=== PATIENT | male | born 1960 | race Caucasian/White ===

== ENCOUNTER 2017-02-03 07:30 | Day surgery (SDC) | payer OTHER ==
[2017-02-02 14:04] VITALS: BMI 25.1
[2017-02-03] MEDS ORDERED: HEPARIN NA (PORCINE) 5,000 UNITS/ML 1ML VIAL ONE ×3 (07:35→15:50)
[2017-02-03] MEDS ORDERED: LIDOCAINE HCL 1%, 10 MG/ML (20ML VIAL) ONE (07:35)
[2017-02-03] MEDS ORDERED: PROPOFOL 20 ML ONE ×3 (09:10→15:45)
[2017-02-03] MEDS ORDERED: MIDAZOLAM HCL 2 MG/2 ML SINGLE DOSE VIAL ONE ×4 (09:10→15:46)
[2017-02-03] MEDS ORDERED: fentaNYL CITRATE 250 MCG/5 ML VIAL ONE (09:10)
[2017-02-03] MEDS ORDERED: ceFAZolin SODIUM 1 GM VIAL ONE (09:22)
[2017-02-03] MEDS ORDERED: ONDANSETRON 4 MG/2 ML VIAL IVPUSH PRN ×2 (10:26→16:33)
[2017-02-03] MEDS ORDERED: oxyCODONE HCL 5 MG TABLET PO PRN ×2 (10:26→16:33)
[2017-02-03] MEDS ORDERED: LACTATED RINGERS SOLUTION 1,000 ML IV SCH ×2 (10:30→16:45)
--- NOTE | 2017-02-03 10:42 | OP ---
Operative Note - Note: Operative Date: 02/03/17 Pre-Operative Diagnosis: LLE claudication Operation: Aortogram, LLE angiogram, FILAMENT CUTTER DCB angioplasty, SFA DCB angioplasty. Findings: FILAMENT CUTTER occlusion Post-Operative Diagnosis: Same as Pre-op Surgeon: Cuba Falk Anesthesia: Fractional Estimated Blood Loss (mls): 50 Operative Report Dictated: Yes
[2017-02-03] MEDS ORDERED: CLOPIDOGREL BISULFATE 75 MG TABLET (FP) ONE (11:17)
[2017-02-03] MEDS ORDERED: CLOPIDOGREL BISULFATE 75 MG TABLET (FP) PO ONE (13:06)
--- NOTE | 2017-02-03 13:15 | HP ---
Admitting History and Physical - Admission Chief Complaint: LLE claudication Limitations to Obtaining History: No Limitations - Past Medical History Cardiovascular: Yes: Hyperlipdemia - Smoking History Smoking history: Current every day smoker Have you smoked in the past 12 months: Yes Aproximately how many cigarettes per day: 20 - Alcohol/Substance Use Hx Alcohol Use: No (weekends, occasional 12/week) Home Medications - Allergies Allergies/Adverse Reactions: Allergies Allergy/AdvReac Type Severity Reaction Status Date / Time No Known Allergies Allergy Verified 02/03/17 07:50 - Home Medications Home Medications: Ambulatory Orders Aspirin [ASA -] 1 tab PO DAILY 01/19/16 Tamsulosin HCl [Flomax] 1 cap PO DAILY 01/19/16 Atorvastatin Ca [Lipitor] 1 tab PO DAILY 01/24/17 Cholecalciferol (Vitamin D3) [Vitamin D3] 1 tab PO DAILY 01/24/17 Cyanocobalamin (Vitamin B-12) [Vitamin B-12] 1 tab PO DAILY 01/24/17 Clopidogrel Bisulfate [Plavix -] 75 mg PO DAILY #30 tablet 02/03/17 Review of Systems - Review of Systems Constitutional: reports: No Symptoms Eyes: reports: No Symptoms HENT: reports: No Symptoms Neck: reports: No Symptoms Cardiovascular: reports: No Symptoms Respiratory: reports: No Symptoms Gastrointestinal: reports: No Symptoms Genitourinary: reports: No Symptoms Musculoskeletal: reports: No Symptoms Integumentary: reports: No Symptoms Neurological: reports: No Symptoms Endocrine: reports: No Symptoms Hematology/Lymphatic: reports: No Symptoms Physical Examination Vital Signs: Vital Signs Temperature 98.0 F 02/03/17 11:30 Pulse Rate 56 L 02/03/17 11:59 Respiratory Rate 16 02/03/17 11:59 Blood Pressure 125/79 02/03/17 11:59 O2 Sat by Pulse Oximetry (%) 98 02/03/17 11:15 Constitutional: Yes: Well Nourished Eyes: Yes: WNL HENT: Yes: WNL Neck: Yes: WNL Cardiovascular: Yes: WNL Respiratory: Yes: WNL Gastrointestinal: Yes: WNL Musculoskeletal: Yes: WNL Extremities: Yes: WNL Edema: No Peripheral Pulses WNL: No Integumentary: Yes: WNL Assessment/Plan LLE claudication 1. 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
[2017-02-03] MEDS ORDERED: ceFAZolin SODIUM 1 GM VIAL IVPB ONE ×2 (15:46)
[2017-02-03] MEDS ORDERED: LIDOCAINE HCL 1%, 10 MG/ML (20ML VIAL) INF ONE (15:53)
[2017-02-03] MEDS ORDERED: PROMETHAZINE HCL 25 MG/1 ML VIAL IVPUSH PRN (16:33)
--- NOTE | 2017-02-03 16:37 | OP ---
Operative Note - Note: Operative Date: 02/03/17 Pre-Operative Diagnosis: Right lower ext claudication Operation: Aortogram, RLE angiogram, RANGE CONSERVATIONIST DCB angioplasty Findings: 80% stenosis of right RANGE CONSERVATIONIST Post-Operative Diagnosis: Same as Pre-op Surgeon: Cuba Falk Anesthesia: Fractional Estimated Blood Loss (mls): 10 Operative Report Dictated: Yes
[2017-02-03 17:46] VITALS: TEMP 98.3
[2017-02-03 18:46] VITALS: BP 129/76; PULSE 55
== END 2017-02-03 19:10 | disposition home or self-care (01) ==
LOC: JASU-SURG 07:30
PROVIDERS: ATTEND Surgery Vascular Surgery
PROC: 047K3Z1 Dilation of Right Femoral Artery using Drug-Coated Balloon, Percutaneous Approach (ICD-10-PCS; 2017-02-03)
PROC: 047L3Z1 Dilation of Left Femoral Artery using Drug-Coated Balloon, Percutaneous Approach (ICD-10-PCS; 2017-02-03)
PROC: 047K3Z1 Dilation of Right Femoral Artery using Drug-Coated Balloon, Percutaneous Approach (ICD-10-PCS; 2017-02-03)
PROC: 047L3Z1 Dilation of Left Femoral Artery using Drug-Coated Balloon, Percutaneous Approach (ICD-10-PCS; principal; 2017-02-03 09:00)
DX: I70.213 Atherosclerosis of native arteries of extremities with intermittent claudication, bilateral legs (principal)
CPT/HCPCS: 37224; C2623; 76000-TC; 94760; J1644

== ENCOUNTER 2017-10-17 07:27 | Day surgery (SDC) | payer BC, OTHER ==
[2017-10-13 17:56] VITALS: BMI 24.9
[2017-10-17] MEDS ORDERED: DEXAMETHASONE SOD PHOSPHATE 4 MG/1 ML VIAL ONE (09:27)
[2017-10-17] MEDS ORDERED: PROPOFOL 20 ML ONE (09:28)
[2017-10-17] MEDS ORDERED: MIDAZOLAM HCL 2 MG/2 ML SINGLE DOSE VIAL ONE (09:28)
[2017-10-17] MEDS ORDERED: LIDOCAINE HCL/PF 2% SDV 5ML VIAL ONE (10:08)
[2017-10-17] MEDS ORDERED: ACETAMINOPHEN 500 MG TABLET (FP) PO PRN (10:51)
[2017-10-17] MEDS ORDERED: ONDANSETRON 4 MG/2 ML VIAL IVPUSH PRN (10:51)
[2017-10-17] MEDS ORDERED: oxyCODONE HCL 5 MG TABLET PO PRN (10:51)
[2017-10-17] MEDS ORDERED: LACTATED RINGERS SOLUTION 1,000 ML IV SCH (11:00)
--- NOTE | 2017-10-17 12:10 | OP ---
Operative Note - Note: Operative Date: 10/17/17 Pre-Operative Diagnosis: bladder tumor Operation: cystoscopy/bladder biopsy/transurethral vaporization of bladder tumor Findings: 5cm x 8cm erythematous patch at posterior bladder at junction with dome Post-Operative Diagnosis: Same as Pre-op Surgeon: Tino Gaston Anesthesia: General Operative Report Dictated: Yes
[2017-10-17 12:42] VITALS: TEMP 97.5
[2017-10-17] MEDS ORDERED: oxyCODONE HCL 5 MG TABLET ONE (13:04)
[2017-10-17 14:51] VITALS: BP 135/86; PULSE 58
--- NOTE | 2017-10-18 14:17 | PATH ---
Surgical Pathology Report Patient Name: ROCIO KATE [facility]. Rec. #: [id number] /Age/Gender: 1960 (Age: 57) / M Account: [id number] Location: [facility] SURG[facility] Taken: 10/17/2017 Received: 10/17/2017 Reported: 10/18/2017 Physicians: Tino Gaston Specimen(s) Received BLADDER TISSUE BIOPSY Clinical History History of transitional bladder cancer Final Diagnosis BLADDER TISSUE, BIOPSY: DENUDED UROTHELIAL MUCOSA WITH MILD CHRONIC INFLAMMATION, GRANULATION TISSUE, AND FOCAL GIANT CELL REACTION. NO CARCINOMA IDENTIFIED. Electronically Signed Angy Lozano M.D. Gross Description Received in formalin labeled "bladder tissue biopsy," is a 0.3 cm greatest dimension sanchez portion of soft tissue which is submitted in toto in one cassette. 10/17/2017 saudi10/17/2017
--- NOTE | 2017-11-01 07:07 | OP ---
DATE OF OPERATION: 10/17/2017 PREOPERATIVE DIAGNOSIS: Bladder tumor. POSTOPERATIVE DIAGNOSIS: Bladder tumor. PROCEDURE: Cystoscopy, bladder biopsy, and transurethral vaporization of bladder tumor. ATTENDING: Edgard Padilla MD ANESTHESIA: General. OPERATION WAS FOLLOWS: The patient was brought in the operating room, placed in the supine position on the operating room table. Anesthesia and preoperative antibiotics were administered. The patient was then placed in dorsal lithotomy position, prepped and draped in the usual sterile manner. A posterior erythematous patch measuring 5 x 8 cm was noted. Biopsy of this area was performed. Vaporization to the level of the deep muscle of the bladder was performed utilizing the button element of the PlasmaKinetic system. The bipolar system allowed for excellent hemostasis and vaporization of tissue to the level of the deep muscle of the bladder. No complications were noted. The patient tolerated the procedure very well. The patient was left with the Chavez catheter to straight drainage. The patient will be followed up as an outpatient for evaluation of the biopsy results. EDGARD PADILLA M.D. [id number]
== END 2017-10-17 14:05 | disposition home or self-care (01) ==
LOC: JASU-SURG 07:27
PROVIDERS: ATTEND Urology
PROC: 0TBB8ZZ Excision of Bladder, Via Natural or Artificial Opening Endoscopic (ICD-10-PCS; principal; 2017-10-17 09:00)
DX: D09.0 Carcinoma in situ of bladder (principal)
CPT/HCPCS: 88305-TC; 94760

== ENCOUNTER 2018-03-16 05:07 | Day surgery (SDC) | payer OTHER, BC ==
[2018-03-14 17:45] VITALS: BMI 24.9
[2018-03-16] MEDS ORDERED: HEPARIN NA (PORCINE) 5,000 UNITS/ML 1ML VIAL ONE ×2 (15:29→16:45)
[2018-03-16] MEDS ORDERED: LIDOCAINE HCL 1%, 10 MG/ML (20ML VIAL) ONE (15:29)
[2018-03-16] MEDS ORDERED: PROPOFOL 20 ML ONE (15:41)
[2018-03-16] MEDS ORDERED: MIDAZOLAM HCL 2 MG/2 ML SINGLE DOSE VIAL ONE ×2 (15:41→16:37)
[2018-03-16] MEDS ORDERED: ceFAZolin SODIUM 1 GM VIAL IVPB ONE (16:39)
[2018-03-16] MEDS ORDERED: PROTAMINE SULFATE 50 MG/5 ML VIAL ONE (16:45)
[2018-03-16] MEDS ORDERED: LIDOCAINE HCL 1%, 10 MG/ML (20ML VIAL) NR ONE (16:49)
--- NOTE | 2018-03-16 17:41 | HP ---
Admitting History and Physical - Admission Chief Complaint: RLE claudication less than three blocks Limitations to Obtaining History: No Limitations - Past Medical History Cardiovascular: Yes: Hyperlipdemia - Smoking History Smoking history: Former smoker Have you smoked in the past 12 months: Yes Aproximately how many cigarettes per day: 20 If you are a former smoker, when did you quit?: 09/2017 - Alcohol/Substance Use Hx Alcohol Use: No (OCCASIONAL) Home Medications - Allergies Allergies/Adverse Reactions: Allergies Allergy/AdvReac Type Severity Reaction Status Date / Time No Known Allergies Allergy Verified 03/16/18 14:40 - Home Medications Home Medications: Ambulatory Orders Aspirin [ASA -] 1 tab PO DAILY 01/19/16 Tamsulosin HCl [Flomax] 1 cap PO DAILY 01/19/16 Cholecalciferol (Vitamin D3) [Vitamin D3] 1 tab PO DAILY 01/24/17 Cyanocobalamin (Vitamin B-12) [Vitamin B-12] 1 tab PO DAILY 01/24/17 Review of Systems - Review of Systems Constitutional: reports: No Symptoms Eyes: reports: No Symptoms HENT: reports: No Symptoms Neck: reports: No Symptoms Cardiovascular: reports: No Symptoms Respiratory: reports: No Symptoms Gastrointestinal: reports: No Symptoms Genitourinary: reports: No Symptoms Musculoskeletal: reports: No Symptoms Integumentary: reports: No Symptoms Neurological: reports: No Symptoms Endocrine: reports: No Symptoms Hematology/Lymphatic: reports: No Symptoms Psychiatric: reports: No Symptoms Physical Examination Vital Signs: Vital Signs Temperature 98.0 F 03/16/18 14:36 Pulse Rate 97 H 03/16/18 14:36 Respiratory Rate 20 03/16/18 14:36 Blood Pressure 133/62 03/16/18 14:36 O2 Sat by Pulse Oximetry (%) 96 03/16/18 14:34 Constitutional: Yes: Well Nourished, No Distress, Calm Eyes: Yes: WNL, Conjunctiva Clear, EOM Intact HENT: Yes: WNL, Atraumatic, Normocephalic Neck: Yes: WNL, Supple, Trachea Midline Cardiovascular: Yes: WNL, Regular Rate and Rhythm Respiratory: Yes: WNL, Regular, CTA Bilaterally Gastrointestinal: Yes: WNL, Normal Bowel Sounds Musculoskeletal: Yes: WNL Extremities: Yes: WNL Edema: No Peripheral Pulses WNL: No Integumentary: Yes: WNL Neurological: Yes: WNL, Alert, Oriented ...Motor Strength: WNL Psychiatric: Yes: WNL Problem List - Problems (1) Claudication of right lower extremity Assessment/Plan: For angiogram today . Code(s): I73.9 - PERIPHERAL VASCULAR DISEASE, UNSPECIFIED
--- NOTE | 2018-03-16 17:43 | OP ---
Operative Note - Note: Operative Date: 03/16/18 Pre-Operative Diagnosis: RLE claudication Operation: Aortogram, RLE angiogram, SASH INSTALLER atherectomy, DCB angioplasty Findings: 90 stenosis right SASH INSTALLER Post-Operative Diagnosis: Same as Pre-op Surgeon: Cuba Falk Anesthesia: Fractional Estimated Blood Loss (mls): 50 Operative Report Dictated: Yes
[2018-03-16] MEDS ORDERED: CLOPIDOGREL BISULFATE 75 MG TABLET (FP) PO ONE ×2 (17:46→18:00)
[2018-03-16] MEDS ORDERED: CLOPIDOGREL BISULFATE 75 MG TABLET (FP) ONE (18:08)
[2018-03-16 19:42] VITALS: BP 140/80; PULSE 56; TEMP 97.6
--- NOTE | 2018-03-18 12:09 | OP ---
DATE OF OPERATION: 03/16/2018 PREOPERATIVE DIAGNOSIS: Right lower extremity claudication. POSTOPERATIVE DIAGNOSIS: Right lower extremity claudication. PROCEDURE: Aortogram, right lower extremity angiogram, common femoral artery atherectomy, drug-coated balloon, common femoral artery angioplasty. SURGEON: Cuba Ryder DO ANESTHESIA: Fractional. BLOOD LOSS: 50 mL. INDICATION FOR PROCEDURE: The patient is a 57-year-old male that has [id number]-block claudication. Preoperative ultrasound showed that he has disease in the right common femoral artery. It was decided that he would need an angiogram. Patient came in through ambulatory surgery. Patient was consented for the procedure, understanding all risks, benefits, alternatives. He was then taken to the operating room. DESCRIPTION OF PROCEDURE: Once in the operating room, he was laid on the operating table in supine manner, and the area of the right and left groin was prepped and draped in a sterile surgical manner. We then went ahead and injected 10 mL of lidocaine 1% over the left common femoral artery. We then punctured the left common femoral artery, Micropuncture wire was inserted, Micropuncture sheath was inserted. A 0.035 floppy guidewire was inserted and a 5-[place] sheath was inserted. We then placed a wire up into the aorta, followed by Omniflush catheter. We then shot an aortogram showing that the aorta and iliac arteries were without any disease. We then placed a 0.035 floppy guidewire down to the right common femoral artery, and the Omniflush catheter followed. We then shot an angiogram of the right lower extremity showing that profunda is patent, but the common femoral artery is about 95% closed. Patient has a patent SFA, popliteal artery, and 2-vessel runoff into the foot. At this point we were able to get a 0.035 stiff guidewire down across our stenosis and placed a wire into the SFA. We removed the Omniflush catheter. We placed a 6 x 45 crossover sheath, 5000 units of IV heparin was administered to patient. We then went ahead and placed a Quick-Cross catheter and exchanged the wire for a Viper Wire. We then used [employer] Atherectomy Device and performed atherectomy of the common femoral artery. We then went ahead and shot a completion angiogram showing that we debulked the calcium, but there was still significant stenosis. At this point we used a 5 x 4 Lutonix drug-coated balloon and performed angioplasty of the common femoral artery, and we left the balloon up for 2 minutes to let the drug disseminate. We then shot an angiogram of the right lower extremity, and the common femoral artery was better. There was probably still 60% stenosis. We then went ahead and increased our balloon size to 6 x 4, being mindful that we do not want to dissect the common femoral artery. We went ahead performed angioplasty of the right common femoral artery and left the balloon up for 2 minutes to let the drug disseminate. Completion angiogram now showed that there was significant diameter increase, but there was still about 40% stenosis, but there was good brisk flow all the way down to the foot, and the patient had a good DP pulse. At this point we decided that no more intervention was needed. If in the future this recurs, the patient might need an open operation in the form of an endarterectomy to remove the calcium. At this point we brought our sheath up and over, and StarClose device was successfully deployed in the left common femoral artery. Pressure was held for 5 minutes. After there was no more bleeding, the area was wet and dried and Dermabond was placed. Patient tolerated the procedure with no complications. Patient transferred to PACU in stable condition where patient has a palpable DP pulse. CUBA RYDER DO NP/[id number]
== END 2018-03-16 19:35 | disposition home or self-care (01) ==
LOC: JASU-SURG 05:07
PROVIDERS: ATTEND Surgery Vascular Surgery
PROC: 04CK3ZZ Extirpation of Matter from Right Femoral Artery, Percutaneous Approach (ICD-10-PCS; 2018-03-16)
PROC: B41DYZZ Fluoroscopy of Aorta and Bilateral Lower Extremity Arteries using Other Contrast (ICD-10-PCS; 2018-03-16)
PROC: 047K3Z1 Dilation of Right Femoral Artery using Drug-Coated Balloon, Percutaneous Approach (ICD-10-PCS; principal; 2018-03-16 17:00)
DX: I70.211 Atherosclerosis of native arteries of extremities with intermittent claudication, right leg (principal); Z87.891 Personal history of nicotine dependence; Z85.51 Personal history of malignant neoplasm of bladder
CPT/HCPCS: 37225; C2623; 94760; J1644

== ENCOUNTER 2018-06-26 08:07 | Day surgery (SDC) | payer OTHER, BC ==
[2018-06-23 11:28] VITALS: BMI 25.1
[2018-06-26] MEDS ORDERED: LIDOCAINE HCL/PF 2% SDV 5ML VIAL ONE (10:57)
[2018-06-26] MEDS ORDERED: MIDAZOLAM HCL 2 MG/2 ML SINGLE DOSE VIAL ONE (10:58)
[2018-06-26] MEDS ORDERED: PROPOFOL 20 ML ONE (10:58)
[2018-06-26] MEDS ORDERED: oxyCODONE HCL 5 MG TABLET PO PRN (11:49)
[2018-06-26] MEDS ORDERED: IBUPROFEN 800 MG/8 ML IJ IVPB PRN (11:49)
[2018-06-26] MEDS ORDERED: ONDANSETRON 4 MG/2 ML VIAL IVPUSH PRN (11:49)
[2018-06-26] MEDS ORDERED: LACTATED RINGERS SOLUTION 1,000 ML IV SCH (12:00)
--- NOTE | 2018-06-26 13:01 | OP ---
Operative Note - Note: Operative Date: 06/26/18 Pre-Operative Diagnosis: neoplasm of bladder with history of TCC of bladder Operation: cystoscopy/bladder biopsy and fulguration of bladder neoplasm Findings: erythematous patch of posterior wall measuring 3 cm x 3 cm Post-Operative Diagnosis: Same as Pre-op Surgeon: Tino Gaston Anesthesia: General
[2018-06-26 14:56] VITALS: BP 147/78; PULSE 50; TEMP 97.3
--- NOTE | 2018-06-26 15:37 | OP ---
DATE OF OPERATION: 06/26/2018 PREOPERATIVE DIAGNOSIS: Neoplasm of the bladder with history of transitional cell carcinoma of the bladder. POSTOPERATIVE DIAGNOSIS: Neoplasm of the bladder with history of transitional cell carcinoma of the bladder. PROCEDURE: Cystoscopy, bladder biopsy with fulguration of bladder neoplasm. ATTENDING: Edgard Padilla MD ANESTHESIA: General. OPERATION: Patient brought into the operating room, placed in the supine position on the operating room table. Anesthesia and preoperative antibiotics administered after which the patient was placed in the dorsal lithotomy position and prepped and draped in the usual sterile manner. Cystoscopy was performed and a posterior area measuring 3 cm x 3 cm which has erythema. There was no evidence of papillary neoplasm. This area has been present for a period of 3 months. Patient had been scheduled in February for a biopsy, however, chose to forego the biopsy at that time. The patient presents today for biopsy of this lesion. All risks and benefits have been given to the patient. A biopsy forceps was utilized and 5+ biopsies of this area were performed. They were sent to Pathology for evaluation. Fulguration using a Bugbee electrode was utilized for fulguration and hemostasis. The erythematous area was fulgurated to the level of the superficial muscle. No complications were noted. Excellent hemostasis was noted. No catheter was left in place at the end of the procedure. Disposition of patient is to the recovery room. EDGARD PADILLA M.D. /[id number]
--- NOTE | 2018-06-27 16:16 | PATH ---
Surgical Pathology Report Patient Name: ROCIO KATE Med. Rec. #: [id number] /Age/Gender: 1960 (Age: 57) / M Account: [id number] Location: [facility] SURGICAL Taken: 06/26/2018 Received: 06/26/2018 Reported: 06/27/2018 Physicians: Tino Gaston Specimen(s) Received BLADDER BIOPSY Clinical History Neoplasm of uncertain behavior of bladder Final Diagnosis BLADDER, BIOPSY: DENUDED UROTHELIAL MUCOSA WITH CHRONIC INFLAMMATION. NO CARCINOMA IDENTIFIED. Comment: Also see [id number]. Electronically Signed Germán Mcintosh M.D. Gross Description Received in formalin, labeled "bladder biopsy" are 5 sanchez, irregular portions of soft tissue ranging from 0.2-0.3 cm. in greatest dimension. The specimens are submitted in toto in one cassette. /06/26/2018 saudi/06/26/2018
== END 2018-06-26 15:00 | disposition home or self-care (01) ==
LOC: JASU-SURG 08:07
PROVIDERS: ATTEND Urology
PROC: 0T5B8ZZ Destruction of Bladder, Via Natural or Artificial Opening Endoscopic (ICD-10-PCS; principal; 2018-06-26 10:00)
DX: D30.3 Benign neoplasm of bladder (principal)
CPT/HCPCS: 88305-TC; 94760

== ENCOUNTER 2018-06-30 09:00 | Day surgery (SDC) | payer BC, OTHER ==
[2018-06-29 16:38] VITALS: BMI 25.1
[~2018-06-30 09:00] MED LIST: LIDOCAINE HCL 1%, 10 MG/ML (20ML VIAL) PNB ONE
[2018-06-30] MEDS ORDERED: LIDOCAINE HCL 1%, 10 MG/ML (20ML VIAL) ONE (10:25)
[2018-06-30] MEDS ORDERED: HEPARIN NA (PORCINE) 5,000 UNITS/ML 1ML VIAL ONE (10:25)
[2018-06-30] MEDS ORDERED: ONDANSETRON 4 MG/2 ML VIAL IVPUSH PRN (10:25)
[2018-06-30] MEDS ORDERED: LACTATED RINGERS SOLUTION 1,000 ML IV SCH (10:30)
[2018-06-30] MEDS ORDERED: ceFAZolin SODIUM 1 GM VIAL IVPB ONE (11:32)
--- NOTE | 2018-06-30 12:21 | HP ---
Admitting History and Physical - Admission Chief Complaint: right lower ext claudication Limitations to Obtaining History: No Limitations - Past Medical History Cardiovascular: Yes: Hyperlipdemia - Smoking History Smoking history: Former smoker Have you smoked in the past 12 months: No Aproximately how many cigarettes per day: 20 If you are a former smoker, when did you quit?: 09/2017 - Alcohol/Substance Use Hx Alcohol Use: Yes (socially) Home Medications - Allergies Allergies/Adverse Reactions: Allergies Allergy/AdvReac Type Severity Reaction Status Date / Time No Known Allergies Allergy Verified 06/30/18 09:25 - Home Medications Home Medications: Ambulatory Orders Aspirin [ASA -] 1 tab PO DAILY 01/19/16 Tamsulosin HCl [Flomax] 1 cap PO DAILY 01/19/16 Cholecalciferol (Vitamin D3) [Vitamin D3] 1 tab PO DAILY 01/24/17 Cyanocobalamin (Vitamin B-12) [Vitamin B-12] 1 tab PO DAILY 01/24/17 Review of Systems - Review of Systems Constitutional: reports: No Symptoms Eyes: reports: No Symptoms HENT: reports: No Symptoms Neck: reports: No Symptoms Cardiovascular: reports: No Symptoms Respiratory: reports: No Symptoms Gastrointestinal: reports: No Symptoms Genitourinary: reports: No Symptoms Musculoskeletal: reports: No Symptoms Integumentary: reports: No Symptoms Neurological: reports: No Symptoms Endocrine: reports: No Symptoms Hematology/Lymphatic: reports: No Symptoms Psychiatric: reports: No Symptoms Physical Examination Vital Signs: Vital Signs Temperature 97.7 F 06/30/18 09:27 Pulse Rate 62 06/30/18 09:27 Respiratory Rate 16 06/30/18 09:27 Blood Pressure 115/74 06/30/18 09:27 O2 Sat by Pulse Oximetry (%) 95 06/30/18 09:27 Constitutional: Yes: Well Nourished, No Distress, Calm Eyes: Yes: WNL, Conjunctiva Clear, EOM Intact HENT: Yes: WNL, Atraumatic, Normocephalic Neck: Yes: WNL, Supple, Trachea Midline Cardiovascular: Yes: WNL, Regular Rate and Rhythm Respiratory: Yes: WNL, Regular, CTA Bilaterally Gastrointestinal: Yes: WNL, Normal Bowel Sounds Musculoskeletal: Yes: WNL Extremities: Yes: WNL Edema: No Peripheral Pulses WNL: No Integumentary: Yes: WNL Neurological: Yes: WNL, Alert, Oriented ...Motor Strength: WNL Psychiatric: Yes: WNL Problem List - Problems (1) Claudication of right lower extremity Assessment/Plan: for angiogram today Code(s): I73.9 - PERIPHERAL VASCULAR DISEASE, UNSPECIFIED
--- NOTE | 2018-06-30 12:22 | OP ---
Operative Note - Note: Operative Date: 06/30/18 Pre-Operative Diagnosis: RLE claudication Operation: Aortogram, RLE angiogram, Right PLASTIC SURGERY NURSE atherectomy with DCB angioplasty Findings: Right PLASTIC SURGERY NURSE occlusion Post-Operative Diagnosis: Same as Pre-op Surgeon: Cuba Falk Anesthesia: Fractional Estimated Blood Loss (mls): 50 Operative Report Dictated: Yes
[2018-06-30 15:56] VITALS: TEMP 98.1
[2018-06-30 16:48] VITALS: BP 125/70; PULSE 58
--- NOTE | 2018-07-04 11:28 | OP ---
DATE OF OPERATION: 06/30/2018 PREOPERATIVE DIAGNOSIS: Right lower extremity claudication. POSTOPERATIVE DIAGNOSIS: Right lower extremity claudication. PROCEDURE: Aortogram, right common femoral artery atherectomy with drug-coated balloon angioplasty. SURGEON: Cuba Ryder DO ANESTHESIA: Fractional. BLOOD LOSS: 20 mL Patient is a 57-year-old male who is current smoker that comes in with right lower extremity claudication. The pain is less than 1 bloke. He has had intervention done below about 6 months ago for atherectomy of the right common femoral artery and it seems like that seems to be the same problem again. Patient came into Ambulatory Surgery. Patient was consented for the procedure understanding all risks, benefits and alternatives and taken to the operating room. Once in the operating room he was placed on the operating table in supine manner and the area of the right leg and left groin were prepped and draped in the sterile surgical manner. We then injected 10 mL of lidocaine 1% over the left common femoral artery. We then took our micropuncture needle and punctured the left common femoral artery. The micropuncture wire was inserted. The micropuncture sheath was inserted. A 0.035 floppy guidewire was inserted and a traditional 5-[place]oc[place] was inserted. We then placed the Omni Flush catheter up into the aorta. We then shot an aortogram by hand injection showing that the aorta and iliac arteries were without any disease. We then placed 1 floppy guidewire down to the right common femoral artery and Omni Flush catheter followed. We then shot an angiogram of the right lower extremity showing that the common femoral artery had about 95% stenosis. Profunda as patent. The SFA was patent and patient had 2 vessel runoff into the foot. At this point we placed the 0.035 stiff guidewire down across our occlusion and placed the wire into the SFA. We removed the Omni Flush catheter. We then went ahead and placed a 6 x 45 cross-over sheath and 5000 units IV heparin were administered to the patient. We then went ahead and exchanged the wire for a ViperWire. We then went ahead and performed CSI orbital atherectomy of the common femoral artery under low, medium and high. We then went ahead and used a 7 x 4 drug-coated balloon, Lutonix balloon, and performed angioplasty of the right common femoral artery. We left the balloon up for 2 minutes so that the drug could disseminate into the artery. Completion angiogram now showed that the artery was patent. There was probably a 15% stenosis. There was good brisk flow down the leg. Patient had a palpable DP pulse. At this point no more intervention was needed. We brought our sheath up and over. The Starclose Device was successfully deployed in the left common femoral artery. Pressure was held for 5 minutes after which there was no more bleeding. The area was wet and dried. Dermabond was placed. Patient tolerated the procedure with no complications. Patient transferred to PACU in stable condition. CUBA RYDER DO [id number]
== END 2018-06-30 14:10 | disposition home or self-care (01) ==
LOC: JASU-SURG 09:00
PROVIDERS: ATTEND Surgery Vascular Surgery
PROC: 047K3Z1 Dilation of Right Femoral Artery using Drug-Coated Balloon, Percutaneous Approach (ICD-10-PCS; principal; 2018-06-30 10:30)
DX: I70.211 Atherosclerosis of native arteries of extremities with intermittent claudication, right leg (principal)
CPT/HCPCS: 37225; C2623; 76000-TC-FY; 94760; J1644

== ENCOUNTER 2018-07-13 07:01 | Day surgery (SDC) | payer BC, OTHER ==
[2018-07-12 09:57] VITALS: BMI 25.1
[2018-07-13] MEDS ORDERED: LIDOCAINE HCL 1%, 10 MG/ML (20ML VIAL) ONE (08:42)
[2018-07-13] MEDS ORDERED: MIDAZOLAM HCL 2 MG/2 ML SINGLE DOSE VIAL ONE (08:59)
[2018-07-13] MEDS ORDERED: PROPOFOL 20 ML ONE ×2 (09:09)
[2018-07-13] MEDS ORDERED: SUCCINYLCHOLINE CHLORIDE 200 MG/10 ML VIAL ONE (09:10)
[2018-07-13] MEDS ORDERED: ceFAZolin SODIUM 1 GM VIAL IVPB ONE (09:14)
[2018-07-13] MEDS ORDERED: ONDANSETRON 4 MG/2 ML VIAL IVPUSH PRN ×2 (11:36→12:00)
--- NOTE | 2018-07-13 11:42 | HP ---
Admitting History and Physical - Admission Chief Complaint: Right lower ext claudication Limitations to Obtaining History: No Limitations - Past Medical History Cardiovascular: Yes: Hyperlipdemia - Smoking History Smoking history: Former smoker Have you smoked in the past 12 months: No Aproximately how many cigarettes per day: 20 If you are a former smoker, when did you quit?: 09/2017 - Alcohol/Substance Use Hx Alcohol Use: Yes (socially) Home Medications - Allergies Allergies/Adverse Reactions: Allergies Allergy/AdvReac Type Severity Reaction Status Date / Time No Known Allergies Allergy Verified 07/13/18 07:31 - Home Medications Home Medications: Ambulatory Orders Aspirin [ASA -] 1 tab PO DAILY 01/19/16 Tamsulosin HCl [Flomax] 1 cap PO DAILY 01/19/16 Cholecalciferol (Vitamin D3) [Vitamin D3] 1 tab PO DAILY 01/24/17 Cyanocobalamin (Vitamin B-12) [Vitamin B-12] 1 tab PO DAILY 01/24/17 Review of Systems - Review of Systems Constitutional: reports: No Symptoms Eyes: reports: No Symptoms HENT: reports: No Symptoms Neck: reports: No Symptoms Cardiovascular: reports: No Symptoms Respiratory: reports: No Symptoms Gastrointestinal: reports: No Symptoms Genitourinary: reports: No Symptoms Integumentary: reports: No Symptoms Neurological: reports: No Symptoms Endocrine: reports: No Symptoms Hematology/Lymphatic: reports: No Symptoms Psychiatric: reports: No Symptoms Physical Examination Vital Signs: Vital Signs Temperature 97.5 F L 07/13/18 07:45 Pulse Rate 75 07/13/18 07:45 Respiratory Rate 16 07/13/18 07:45 Blood Pressure 127/71 07/13/18 07:45 O2 Sat by Pulse Oximetry (%) 95 07/13/18 07:45 Constitutional: Yes: Well Nourished, No Distress, Calm Eyes: Yes: WNL, Conjunctiva Clear, EOM Intact HENT: Yes: WNL, Atraumatic, Normocephalic Neck: Yes: WNL, Supple, Trachea Midline Cardiovascular: Yes: WNL, Regular Rate and Rhythm Respiratory: Yes: WNL, Regular, CTA Bilaterally Gastrointestinal: Yes: WNL, Normal Bowel Sounds Musculoskeletal: Yes: WNL Extremities: Yes: WNL Edema: No Peripheral Pulses WNL: No Integumentary: Yes: WNL Neurological: Yes: WNL, Alert, Oriented ...Motor Strength: WNL Psychiatric: Yes: WNL Problem List - Problems (1) Claudication of right lower extremity Assessment/Plan: For right femoral artery endarterctomy with patch today Code(s): I73.9 - PERIPHERAL VASCULAR DISEASE, UNSPECIFIED
--- NOTE | 2018-07-13 11:44 | OP ---
Operative Note - Note: Operative Date: 07/13/18 Pre-Operative Diagnosis: RLE claudication Operation: Right femoral artery endarterectomy with patch Findings: thrombus and calcium Post-Operative Diagnosis: Same as Pre-op Surgeon: Cuba Falk Anesthesia: General Estimated Blood Loss (mls): 150 Operative Report Dictated: Yes
[2018-07-13] MEDS ORDERED: LACTATED RINGERS SOLUTION 1,000 ML IV SCH ×2 (11:45→12:00)
[2018-07-13] MEDS ORDERED: CLOPIDOGREL BISULFATE 75 MG TABLET (FP) ONE (12:28)
[2018-07-13] MEDS ORDERED: oxyCODONE HCL 5 MG TABLET PO PRN (12:31)
[2018-07-13] MEDS: CLOPIDOGREL BISULFATE 75 MG TABLET (FP) PO SCH (12:45)
[2018-07-14 05:56] VITALS: PULSE 57
--- NOTE | 2018-07-14 09:11 | PN ---
Progress Note (short form) - Note Progress Note: Vascular Surgery Pt seen and examined. doing well minimal pain. Right leg warm, with palpable DP pulse. Dressing is C/D/I Will dc home cont plavix. Will come back on for staple removal. Cuba Falk DO Problem List - Problems (1) Claudication of right lower extremity Code(s): I73.9 - PERIPHERAL VASCULAR DISEASE, UNSPECIFIED
[2018-07-14] MEDS: CLOPIDOGREL BISULFATE 75 MG TABLET (FP) PO SCH (09:26)
[2018-07-14 10:41] VITALS: BP 104/69; TEMP 98
--- NOTE | 2018-07-18 13:07 | PATH ---
Surgical Pathology Report Patient Name: ROCIO KATE Med. Rec. #: [id number] /Age/Gender: 1960 (Age: 58) / M Account: [id number] Location: AMBULATORY SURG Taken: 07/13/2018 Received: 07/13/2018 Reported: 07/16/2018 Physicians: Cuba Falk Specimen(s) Received CALCIUM FROM COMMON FERMORAL ARETERY (RIGHT) Clinical History Right lower extremity claudication Final Diagnosis CALCIUM FROM COMMON RIGHT FEMORAL ARTERY, ENDARTERECTOMY: FRAGMENTS OF FIBROUS TISSUE WITH BLOOD CLOT SHOWING MARKED CALCIFICATION. Electronically Signed Ritesh Ramírez M.D. Gross Description Received in formalin labeled "calcium from common femoral artery" are multiple heterogeneous sanchez to dark red irregular portions of hard and soft tissue measuring aggregate 3 x 3 x 1 cm. Parts Identification Technician sections are submitted one cassette. MARY/07/13/2018 [facility]/07/13/2018
--- NOTE | 2018-07-18 13:42 | OP ---
DATE OF OPERATION: 07/13/2018 PREOPERATIVE DIAGNOSIS: Right lower extremity claudication. POSTOPERATIVE DIAGNOSIS: Right lower extremity claudication. PROCEDURE: Right femoral artery endarterectomy with patch. SURGEON: Cuba Ryder DO ANESTHESIA: General. BLOOD LOSS: 100 mL INDICATIONS: Patient is a 58-year-old male that has right lower extremity claudication, secondary to an occluded right common femoral artery, secondary to disease and calcium. He has had multiple angioplasties done in the past, but he has not gotten better now has claudication symptoms and it was decided that he would need an open operation. Patient came into Ambulatory Surgery. Patient accepted the procedure understanding all the risks, benefits and alternatives. PROCEDURE: He was then brought to the operating room. Once in the operating room he was laid on the operating room table in the supine manner and the area of the right groin was prepped and draped in the sterile surgical manner. We went ahead and bianca a 6 cm incision over the common femoral artery bifurcation down into the common femoral artery and SFA. We then went ahead using a No. 15 blade made an incision of about 6 cm. Bovie electrocautery was used to ensure hemostasis. Take that incision down using Bovie electrocautery all the way down to the femoral sheath. We then were able to dissect out our femoral artery, the profunda and our SFA. Vessel loops were placed around each artery; 5000 units of IV heparin were administered to the patient. We then got proximal and distal control on each artery. We then went ahead using a No. 15 blade, made an incision on the common femoral artery and took the incision up and down to the origin of the SFA. We then took a freer elevator and we were able to remove all the contents, including thrombus and calcium and calcified plaque that was removed until we got down to good healthy artery. We made sure that there were no flaps. We made sure that all the contents were removed. Once the artery was nice and smooth and there were no flaps whenever we irrigated, we went ahead and took an 8 x 75 Dacron patch and we went ahead and sutured in the patch in a 4-quadrant fashion u sing 6-0 Prolene double arm. The further patch was completely sutured in and we were able to get back bleeding on the SFA, on the profunda and there was good forward bleeding on the common femoral artery. We then sutured in the patch in 4-quadrant fashion. Once completed we opened the distal arteries first and the proximal arteries. The patch was patent. There was no bleeding from the patch. We irrigated the wound copiously. We placed some Surgicel. We then closed the subcutaneous tissue using 3-0 Vicryl in interrupted manner and we closed the skin using skin percy. The area was wet and dried; 4 x 4's and Tegaderms were placed. Patient had a palpable DP pulse. Patient tolerated the procedure with no complication. Patient was transferred to PACU in stable condition. Total blood loss none. CUBA RYDER DO [id number]
== END 2018-07-14 11:13 | disposition home or self-care (01) ==
LOC: JASUSAT 07:01 → J6S 15:20 → JASUSAT 07-14 11:13
PROVIDERS: ATTEND Surgery Vascular Surgery
PROC: 04UK3JZ Supplement Right Femoral Artery with Synthetic Substitute, Percutaneous Approach (ICD-10-PCS; 2018-07-13)
PROC: 04CK3ZZ Extirpation of Matter from Right Femoral Artery, Percutaneous Approach (ICD-10-PCS; principal; 2018-07-13 09:00)
DX: I70.211 Atherosclerosis of native arteries of extremities with intermittent claudication, right leg (principal)
CPT/HCPCS: 86850; 86900; 86901; 88304-TC; 94760

== ENCOUNTER 2018-08-12 10:29 | Inpatient (IN) | payer BC, OTHER ==
[2018-08-12 10:44] VITALS: BMI 25.1
--- NOTE | 2018-08-12 10:45 | PDOC ---
History of Present Illness - General Chief Complaint: Wound Stated Complaint: RT LEG PAIN Time Seen by Provider: 08/12/18 10:44 - History of Present Illness Initial Comments: 08/12/18 12:15 The patient is a 58 year old male with a history of PVD, bladder CA who presents for evaluation of pain and swelling to his right groin. The patient reports that he had an endarterectomy 4 weeks ago due to right lower extremity claudication performed by Dr. Falk. He noted 2 days ago experiencing fevers to 102 as well as worsening fatigue. He noted worsening redness and swelling to his right groin at the surgical site. He called his vascular surgeon who referred the patient to the ED for further evaluation. The patient otherwise denies chills, SOB, chest pain, nausea, vomiting, abdominal pain, or changes with urination or bowel movements. Past History - Past Medical History Allergies/Adverse Reactions: Allergies Allergy/AdvReac Type Severity Reaction Status Date / Time No Known Allergies Allergy Verified 07/13/18 07:31 Home Medications: Ambulatory Orders Tamsulosin HCl [Flomax] 1 cap PO DAILY 01/19/16 Cholecalciferol (Vitamin D3) [Vitamin D3] 1 tab PO DAILY 01/24/17 Cyanocobalamin (Vitamin B-12) [Vitamin B-12] 1 tab PO DAILY 01/24/17 Anemia: No Asthma: No Cancer: Yes (bladder sx/chemo [id number]) Cardiac Disorders: No CVA: No COPD: No CHF: No Dementia: No Diabetes: No GI Disorders: No Disorders: No HTN: No Hypercholesterolemia: No Liver Disease: No Seizures: No Thyroid Disease: No - Surgical History Abdominal Surgery: No Appendectomy: No Cardiac Surgery: No Cholecystectomy: No Lung Surgery: No Neurologic Surgery: Yes (CERVICAL SX FUSION) Orthopedic Surgery: No - Immunization History Immunization Up to Date: Yes - Suicide/Smoking/Psychosocial Hx Smoking History: Never smoked Have you smoked in the past 12 months: No Number of Cigarettes Smoked Daily: 20 If you are a former smoker, when did you quit?: 09/2017 Information on smoking cessation initiated: No 'Breaking Loose' booklet given: 02/03/17 Hx Alcohol Use: No Drug/Substance Use Hx: No Substance Use Type: Alcohol Hx Substance Use Treatment: No Review of Systems - Review of Systems Comments:: 06/08/19 12:26 Constitutional: Fevers, No chills, fatigue, malaise HEENT: No Rhinorrhea, nasal congestion, visual changes Cardiovascular: No chest pain, syncope, palpitations, lightheadedness Respiratory: No Cough, SOB, Hemoptysis, Gastrointestinal: No Abdominal pain, Nausea, Vomiting, Constipation, Diarrhea, Melena Genitourinary: No Dysuria, Frequency, Urgency, Hesitancy, Hematuria, Flank pain Musculoskeletal: No Myalgia, arthralgia Skin: Redness and swelling to the right groin. No itching, bruising, pallor Neurologic: No Headache, Dizziness, Numbness, Weakness, or Tingling Psychiatric: No Hallucinations. No SI or HI *Physical Exam - Vital Signs Last Vital Signs Temp Pulse Resp BP Pulse Ox 98.5 F 83 16 109/67 98 08/12/18 10:42 08/12/18 10:42 08/12/18 10:42 08/12/18 10:42 08/12/18 10:42 - Physical Exam Comments: 08/12/18 12:33 General Appearance: Nourished. No Apparent Distress HEENT: No Pharyngeal Erythema, Tonsillar Exudate, Tonsillar Erythema Neck: No Cervical Lymphadenopathy Respiratory/Chest: Lungs Clear, Normal Breath Sounds. No Crackles, Rales, Rhonchi, Wheezing Cardiovascular: Regular Rhythm, Regular Rate. No Murmur, Gallops, Rubs Gastrointestinal/Abdominal: Normal Bowel Sounds, Soft. No Guarding, Rebound, Tenderness Musculoskeletal: No CVA Tenderness Extremity: Erythema surrounding right femoral incisional site with palpable mass noted and area of induration. Normal Capillary Refill Integumentary: Normal Color, Dry, Warm Neurologic: Fully Oriented, Alert, Normal Mood/Affect, Normal Response, ED Treatment Course - LABORATORY CBC & Chemistry Diagram: 08/12/18 10:58 08/12/18 10:58 Medical Decision Making - Medical Decision Making 08/12/18 12:48 The patient is a 58 year old male with a history of PVD, bladder CA who presents for evaluation of pain and swelling to his right groin. Differential includes but is not limited to: Abscess, Cellulitis, Pseudoanyrusm, Infectious, Metabolic Derangement. Given the patient's history and physical exam, we will obtain a cbc, cmp, lactate, blood cultures, chest plain film, coags, ekg, soft tissue ultrasound to evaluate further. We discussed the case with Dr. Falk who is aware of the case and is recommending admission. We will treat with vanc and zosyn and continue to monitor and reassess while here in the ED. 08/12/18 18:10 CBC, cmp, lactate are unremarkable. Soft tissue US demonstrates hematoma to the right inguinal region but unable to exclude superimposed infection or abscess as read by our radiologist. We discussed the case with the admitting team who accepted the patient for admission. *DC/Admit/Observation/Transfer Diagnosis at time of Disposition: Cellulitis Qualifiers: Site of cellulitis: unspecified site Qualified Code(s): L03.90 - Cellulitis, unspecified - Discharge Dispostion Condition at time of disposition: Stable Decision to Admit order: Yes - Referrals - Patient Instructions - Post Discharge Activity
[2018-08-12] MEDS ORDERED: PIPERACILLIN/TAZOB 3.375 GM 3.375 GM in DEXTROSE 5%-WATER - 50 ML IVPB ONE (11:07)
[2018-08-12] MEDS ORDERED: VANCOMYCIN 1 GM in D5W (PRE-DOCKED) 1,000 MG/250 ML IVPB ONE (11:07)
--- NOTE | 2018-08-12 11:14 | PDOC ---
Attending Attestation - Resident Resident Name: Jose Manuel Mcintosh - ED Attending Attestation I have performed the following: I have examined & evaluated the patient, The case was reviewed & discussed with the resident, I agree w/resident's findings & plan, Exceptions are as noted - HPI HPI: 08/12/18 11:07 Mr Montalvo is a generally healthy 58 yo M presenting with right groin pain and swelling He has a history of peripheral vascular disease, claudication with left femoral stenting As a result of claudication he has undergone several angioplasty procedures with recurrence of his symptoms Approximately 1 month ago, he is s/p right femoral endarterectomy Post op period uncomplicated Two days ago, he noted that when he got out of bed he felt dizzy, weak. At that time he had a fever of 102 He noted today that he felt right groin pain, notes swelling and erythema He contacted Dr Falk who referred him to the ER Pt denies fevers now He has pain in the groin, no pain in the foot or calf PMH: BPH PSH: Meds: pt discontinued ASA, taking flomax, vitamins ALL: NKDA Social: social ETOH, denies drug, discontinued tobacco 1 year ago - Physicial Exam PE: 08/12/18 11:12 GENERAL: The patient is in no acute distress. HEAD: Normal EYES: PERRLA, EOMI, sclera anicteric, conjunctiva clear. ENT: Ears normal, nares patent, oropharynx clear without exudates. Moist mucous membranes. NECK: Normal range of motion, supple LUNGS: Breath sounds equal, clear to auscultation bilaterally. No wheezes, and no crackles. HEART:Regular rate and rhythm, normal S1 and S2 without murmur, rub or gallop. ABDOMEN: Soft, nontender, normoactive bowel sounds. No guarding, no rebound. EXTREMITIES: Normal range of motion, no edema. Right groin swollen, erythematous, no expressible purulence Well healed surgical scar NEUROLOGICAL: Cranial nerves II through XII grossly intact. Normal speech. No focal neurological deficits. MUSCULOSKELETAL: Back non-tender to palpation, no CVA tenderness SKIN: erythema noted 08/12/18 11:16 - Medical Decision Making 08/12/18 11:14 58 yo M presenting with right groin pain and swelling 1 month s/p femoral endarterectomy Physical examination consistent with cellulitis, possible abscess, infected seroma, pseudoaneursym Will do: Labs Cultures Abx US Contact Dr Falk Anticipate Admission 08/12/18 12:08 Laboratory Tests 08/12/18 10:58 WBC 10.2 H Hgb 12.6 Hct 37.4 08/12/18 12:27 Laboratory Tests 08/12/18 11:07 INR 1.03 08/12/18 12:35 Laboratory Tests 08/12/18 10:58 Sodium 135 L Potassium 3.8 Chloride 103 Carbon Dioxide 23 BUN 12.1 Creatinine 0.9 Random Glucose 87 08/12/18 12:48 Laboratory Tests 08/12/18 11:07 Lactic Acid 0.8 08/12/18 12:55 U/S - hematoma, no pesudoaneurysm Can not rule out super imposed infection Will admit
[2018-08-12] MEDS ORDERED: ACETAMINOPHEN 1000 MG/100 ML VIAL (NON FORMULARY) IVPB ONE (11:24)
[2018-08-12] MEDS ORDERED: VANCOMYCIN 1 GRAM (PRE-DOCKED) 1,000 MG/250 ML BAG IVPB ONE (11:29)
[2018-08-12] MEDS ORDERED: PIPERACILLIN/TAZOB 3.375 GM 3.375 GM/50 ML BAG IVPB ONE (11:29)
[2018-08-12] MEDS ORDERED: ACETAMINOPHEN INJECTION 100 ML IVPB ONE (11:29)
[2018-08-12 11:55] LABS: BASO % 0.3 % (0-2.0); EOS % 0.1 % (0-4.5); HEMATOCRIT 37.4 % (35.4-49); HEMOGLOBIN 12.6 GM/dL (11.7-16.9); LYMPH % 9.9 % (8-40); MCHC 33.7 g/dl (32.0-35.9); MEAN CELL VOLUME 97.9 fl (80-96); MEAN PLT VOLUME 7.3 fl (7.5-11.1); MONO % 7.4 % (3.8-10.2); NEUT % 82.3 % (42.8-82.8); RBC 3.82 M/mm3 (4.00-5.60); WHITE BLOOD COUNT 10.2 K/mm3 (4.0-10.0)
[2018-08-12 12:21] LABS: INR 1.03 (0.83-1.09); PROTHROMBIN TIME (PATIENT) 12.2 SEC (9.7-13.0)
[2018-08-12 12:24] LABS: ACTIVATED PTT 32.4 SECONDS (25.2-36.5)
[2018-08-12 12:29] LABS: ALBUMIN 3.6 g/dl (3.4-5.0); BILIRUBIN,TOTAL 0.6 mg/dL (0.2-1); BLOOD UREA NITROGEN 12.1 mg/dL (7-18); CALCIUM 8.4 mg/dL (8.5-10.1); CREATININE 0.9 mg/dL (0.55-1.3); POTASSIUM 3.8 mmol/L (3.5-5.1); TOT PROT 7.1 g/dl (6.4-8.2)
[2018-08-12] MEDS: SODIUM CHLORIDE 1,000 ML IV SCH (13:41)
[2018-08-12 17:28] LABS: PLATELET COUNT 358 K/MM3 (134-434)
[2018-08-13] MEDS ORDERED: MELATONIN 5 MG TABLETS PO ONE (02:14)
[2018-08-13] MEDS: ACETAMINOPHEN 325 MG TABLET (FP) PO PRN ×3 (03:18→22:37)
[2018-08-13 08:11] LABS: ALBUMIN 2.9 g/dl (3.4-5.0); BILIRUBIN,TOTAL 0.5 mg/dL (0.2-1); BLOOD UREA NITROGEN 10.8 mg/dL (7-18); CALCIUM 7.7 mg/dL (8.5-10.1); CREATININE 0.8 mg/dL (0.55-1.3); POTASSIUM 4.1 mmol/L (3.5-5.1); TOT PROT 6.1 g/dl (6.4-8.2)
[2018-08-13] MEDS: TAMSULOSIN HCL 0.4 MG CAP PO SCH (08:28)
--- NOTE | 2018-08-13 08:31 | EKG ---
Test Reason : Blood Pressure : / mmHG Vent. Rate : 069 BPM Atrial Rate : 069 BPM P-R Int : 138 ms QRS Dur : 082 ms QT Int : 384 ms P-R-T Axes : 039 049 081 degrees QTc Int : 411 ms SINUS RHYTHM WITH PREMATURE ATRIAL COMPLEXES NONSPECIFIC T WAVE ABNORMALITY ABNORMAL ECG NO PREVIOUS ECGS AVAILABLE Confirmed by AUSTIN CASTILLO MD ([id number]) on 08/13/2018 8:30:58 AM Referred By: Confirmed By:AUSTIN CASTILLO MD
[2018-08-13 08:32] LABS: BASO % 0.1 % (0-2.0); EOS % 0.4 % (0-4.5); HEMATOCRIT 31.7 % (35.4-49); HEMOGLOBIN 10.8 GM/dL (11.7-16.9); LYMPH % 13.8 % (8-40); MCH 33.3 pg (25.7-33.7); MEAN CELL VOLUME 97.9 fl (80-96); MEAN PLT VOLUME 7.3 fl (7.5-11.1); MONO % 8.4 % (3.8-10.2); NEUT % 77.3 % (42.8-82.8); RBC 3.23 M/mm3 (4.00-5.60); RDW 13.9 % (11.9-15.9); WHITE BLOOD COUNT 8.5 K/mm3 (4.0-10.0)
--- NOTE | 2018-08-13 08:52 | HP ---
Admitting History and Physical - Primary Care Physician PCP: Francisca Bloom - Admission Chief Complaint: Right groin cellulitis History of Present Illness: Mr Montalvo is a generally healthy 58 yo M presenting with right groin pain and swelling that started 08/10/18, got progressively worse. Pt with history of PAD, recently had right femoral endarterectomy on 07/18/18. Post op, no complications , but he noticed right thigh erythema, which he believes never went away. Pt woke up on 08/12/18 feeling dizzy, nauseas, like he was going to pass out, fever ( T-max-102.0 F). He called Dr Falk- Vascular surgery, who instructed the patient to come in to [facility] ER for further evaluation. Pt also remember lifting heavy equipment at work on 08/10/18. History Source: Patient Limitations to Obtaining History: No Limitations - Past Medical History Cardiovascular: Yes: Hyperlipdemia - Smoking History Smoking history: Never smoked Have you smoked in the past 12 months: No Aproximately how many cigarettes per day: 20 If you are a former smoker, when did you quit?: 09/2017 - Alcohol/Substance Use Hx Alcohol Use: No Home Medications - Allergies Allergies/Adverse Reactions: Allergies Allergy/AdvReac Type Severity Reaction Status Date / Time No Known Allergies Allergy Verified 07/13/18 07:31 - Home Medications Home Medications: Ambulatory Orders Tamsulosin HCl [Flomax] 1 cap PO DAILY 01/19/16 Cholecalciferol (Vitamin D3) [Vitamin D3] 1 tab PO DAILY 01/24/17 Cyanocobalamin (Vitamin B-12) [Vitamin B-12] 1 tab PO DAILY 01/24/17 Physical Examination Vital Signs: Vital Signs Temperature 98.0 F 08/13/18 06:00 Pulse Rate 68 08/13/18 06:00 Respiratory Rate 17 08/13/18 06:00 Blood Pressure 123/66 08/13/18 06:00 O2 Sat by Pulse Oximetry (%) 99 08/12/18 22:55 Constitutional: Yes: Well Nourished, No Distress, Calm Cardiovascular: Yes: Regular Rate and Rhythm Respiratory: Yes: Regular Gastrointestinal: Yes: Normal Bowel Sounds, Soft Musculoskeletal: Yes: Other (Right groin pain+ erythema) Extremities: Yes: Erythema (right groin) Edema: No Peripheral Pulses WNL: Yes Neurological: Yes: Alert, Oriented Psychiatric: Yes: Alert, Oriented Labs: CBC, BMP 08/13/18 06:52 08/13/18 06:52 Problem List - Problems (1) Cellulitis Assessment/Plan: -ID consult -IV abx -afebrile -acetaminophen for pain or fever -BC pending -Leukocytosis improved -Ice pack Q2h Code(s): L03.90 - CELLULITIS, UNSPECIFIED Qualifiers: Site of cellulitis: unspecified site Qualified Code(s): L03.90 - Cellulitis , unspecified (2) Peripheral arterial disease Assessment/Plan: -Vascular surgery consult Code(s): I73.9 - PERIPHERAL VASCULAR DISEASE, UNSPECIFIED
[2018-08-13] MEDS: ENOXAPARIN NA (PORCINE) 40 MG/0.4 ML DISP.SYRIN SQ SCH (10:05)
[2018-08-13 13:43] LABS: PLATELET COUNT 286 K/MM3 (134-434)
--- NOTE | 2018-08-13 14:22 | PN ---
Progress Note (short form) - Note Progress Note: ID CONSULT DICTATED PROBABLE INFECTED HEMATOMA R GROIN LYMPHANGITIS R THIGH S/P R FEMORAL ENDARTERECTOMY AWAIT C/S EMPIRIC ZOSYN/ VANCOMYCIN
--- NOTE | 2018-08-13 15:22 | CONS ---
DATE OF CONSULTATION: DATE OF DICTATION: 08/13/2018 The patient is a 58-year-old male evaluated for possible infected hematoma. He has a history of peripheral vascular disease and claudication. He is status post stenting of the left femoral artery and has undergone several angioplasty procedures. On July 13, 2018, he underwent a right femoral artery endarterectomy with patch placement. His postoperative course was uncomplicated. Approximately 2 to 3 days ago, patient remembers lifting a heavy object at work. He subsequently developed pain and swelling in the right groin and noted erythema. He reports a fever to 102 prior to admission. He was evaluated in the emergency room, where an ultrasound was performed and showed a collection in the right groin surgical site consistent with possible infected hematoma versus abscess. He was empirically treated with antibiotics. Past medical history positive for peripheral vascular disease, bladder cancer, history of cervical spine fusion. No known allergies. Medications at the present time include Flomax, Tylenol, vancomycin, Zosyn, Lovenox. SOCIAL HISTORY: He resides in the community. Nonsmoker. Occasional EtOH. SYSTEMS REVIEW: Neurologic: No loss of consciousness, seizure activity, focal weakness. Cardiac: Negative chest pain or palpitations. Respiratory: Negative cough or sputum production. Gastrointestinal: Negative vomiting or diarrhea. Genitourinary: Negative for urinary tract infection. LABORATORY DATA: White count 8.5, hematocrit 31.7, platelet count 286. Creatinine 0.8. Blood cultures pending. Chest x-ray negative. PHYSICAL EXAMINATION: General: He is awake and alert, ambulatory, not acutely toxic appearing. Vital Signs: Temperature 98. T-max 100.5. Blood pressure 123/66. Pulse 68, regular. Respirations 18 per minute. Eyes: Sclerae anicteric. Heart Sounds: S1, S2. Lungs: Clear. Abdomen: Soft, nontender. Examination of the right groin, there is a surgical wound which is well healed. There is surrounding erythema extending from the suprapubic area to the right inguinal area. It is warm to touch. There is no drainage from the wound, which appears to be healed. There is a palpable cord and lymphangitis, right medial thigh. IMPRESSION: 1. Probable infected hematoma, right groin. 2. Lymphangitis, right thigh. 3. Status post femoral endarterectomy. Await cultures. Surgical followup. Empiric antibiotic coverage with vancomycin and Zosyn. Will follow. Thank you for the kind referral. BARB LEUNG M.D. [id number]
[2018-08-13] MEDS: VANCOMYCIN HCL 1,250 MG in DEXTROSE 5%-WATER - 250 ML IVPB SCH (15:29)
[2018-08-13] MEDS ORDERED: DEXTROSE 5%-WATER - 50 ML IVPB ONE (17:57)
[2018-08-13] MEDS ORDERED: PIPERACILLIN/TAZOBACTAM 3.375 GM VIAL IVPB ONE (17:57)
[2018-08-13] MEDS: PIPERACILLIN/TAZOB 3.375 GM 3.375 GM in DEXTROSE 5%-WATER - 50 ML IVPB SCH (18:01)
[2018-08-13] MEDS: SODIUM CHLORIDE 1,000 ML IV SCH (18:03)
[2018-08-13] MEDS: MELATONIN 5 MG TABLETS PO PRN (22:37)
[2018-08-14] MEDS ORDERED: DEXTROSE 5%-WATER - 50 ML IVPB ONE ×3 (01:41→19:38)
[2018-08-14] MEDS ORDERED: PIPERACILLIN/TAZOBACTAM 3.375 GM VIAL IVPB ONE ×3 (01:41→19:38)
[2018-08-14] MEDS ORDERED: PT OWN MED DRAWER 7, Y5N ONE ×2 (01:50→15:40)
[2018-08-14] MEDS: PIPERACILLIN/TAZOB 3.375 GM 3.375 GM in DEXTROSE 5%-WATER - 50 ML IVPB SCH ×3 (01:54→19:41)
[2018-08-14] MEDS: VANCOMYCIN HCL 1,250 MG in DEXTROSE 5%-WATER - 250 ML IVPB SCH ×2 (03:24→15:45)
--- NOTE | 2018-08-14 07:20 | CONSULT ---
- Consultation REQUESTING PROVIDER: Cuba Falk - Vascular Surgery CONSULT REQUEST: We have been asked to surgically evaluate this patient for right groin cellulitis PCP: Zain Bassett HPI: Called to eval 58 yo male w/ PMHx significant for PAD --> Right groin femoral endarterectomy 07/13/18 secondary to RLE claudication. Patient had an uncomplicated course post-op. Was discharged home 07/14/18. Patient states he began to notice swelling to the right groin as well as a "palpable cord" to medical aspect of his right thigh (mid-distal). States he developed a fever 102F (oral). Became dizzy/weak, nausea but no vomiting. Called Dr. Falk who asked that he come to [facility] ED for further evaluation. While in the ED he had the following imaging studies: 1. U/S soft tissue --> 4.6 x 2.6 cm hypoechoic density most likely hematoma ( infected ?) vs. abscess 2. Right groin duplex --> unremarkable w/ regards to dopplerable flow and velocity Since admit to hospital and started on IV ABX per ID, states he is feeling much better. PMHx: PAD, Claudication, Hyperlipidemia, Bladder CA PSHx: Right femoral endarterectomy with patch 07/13/18 Aortogram, RLE angiogram, Right MECHANICAL HANDYMAN atherectomy with DCB angioplasty 06/30/18 Cysto/bladder bx and fulguration of bladder neoplasm 06/26/18 Aortogram, RLE angiogram, MECHANICAL HANDYMAN atherectomy, DCB angioplasty 03/16/18 Cystoscopy/bladder bx with transurethral vaporization of bladder tumor 10/17/17 Aortogram, LLE angiogram, MECHANICAL HANDYMAN DCB angioplasty, SFA DCB angioplasty 02/03/17 Cervical Spine fusion Social: Former smoker Home Meds Flomax 1 cap PO daily Vit D3 1 tab PO daily Vit B12 1 tab PO daily Allergies: NKDA ROS: All systems reviewed and considered negativ except for what's contained in HPI. PE: GENERAL: A&O. NAD HEAD: NC. AT. EYES: PERRL, sclera anicteric, conjunctiva clear. LUNGS: CTA bilat HEART: RRR ABDOMEN: Soft, NT, ND, normoactive bowel sounds MUSCULOSKELETAL: No CVA tenderness. UE: 2+ pulses, warm, well-perfused. No cyanosis. Cap refill <2 seconds. No peripheral edema. LE: LLE unremarkable. Right groin with surgical incision well approximated. Minimal serous staining to inside of underwear. No active drainage when attempt to express. + surrounding cellulitis. Mildly warm to touch. 2+ femoral pulse. Palpable cord to medial aspect thigh (mid-->distal). No streaking. Well- perfused. No calf tenderness. No peripheral edema. NEUROLOGICAL: Normal speech, gait not observed. PSYCH: Cooperative. Good eye contact. Appropriate mood and affect. Last Vital Signs Temp Pulse Resp BP Pulse Ox 98.5 F 48 L 14 99/58 L 97 08/14/18 05:00 08/14/18 05:00 08/14/18 05:00 08/14/18 05:00 08/13/18 21:00 INR, PTT INR 1.03 (0.83-1.09) 08/12/18 11:07 Microbiology 08/12/18 11:07 Blood - Peripheral Venous Blood Culture - Preliminary NO GROWTH AFTER 24 HRS, CONTINUE FOR 4 DAYS. 08/12/18 11:30 Blood - Peripheral Venous Blood Culture - Preliminary NO GROWTH AFTER 24 HRS, CONTINUE FOR 4 DAYS. WBC TREND 08/12/18 08/13/18 10:58 06:52 WBC 10.2 H 8.5 Problem List - Problems (1) Cellulitis Assessment/Plan: 58 yo male POD #32 s/p Right femoral endarterectomy w/ patch. Discharged home POD #1 without any complications. Now returns to hospital with Leukocytosis (now resolved) and swelling to right groin which has improved after starting IV ABX per ID. Remains afebrile. Non-toxic appearing. Cont Vanco and Zosyn per ID f/u wound cultures Warm compress to right groin NSAIDs OOB and ambulate Tylenol 650mg PO for fever > 100.4F No surgical intervention planned as he is improving with conservative measures but will continue to follow. Above plan discussed with Dr. Falk and agrees Code(s): L03.90 - CELLULITIS, UNSPECIFIED Qualifiers: Site of cellulitis: unspecified site Qualified Code(s): L03.90 - Cellulitis , unspecified (2) Peripheral arterial disease Code(s): I73.9 - PERIPHERAL VASCULAR DISEASE, UNSPECIFIED Visit type - Case Type Case Type: ED Admission - Emergency Emergency Visit: Yes ED Registration Date: 08/12/18 Care time: The patient presented to the Emergency Department on the above date and was hospitalized for further evaluation of their emergent condition. - New patient This patient is new to me today: Yes Date on this admission: 08/14/18
--- NOTE | 2018-08-14 09:15 | PN ---
Progress Note (short form) - Note Progress Note: Vascular surgery Pt seen and examined. Feels much better. Cellulitis of left groin. Feels better. Cont IV antibiotics. If moving in the right direction would rather not open right groin. Will order venous duplex to look at left leg due to cord. Cuba Falk DO
[2018-08-14] MEDS: ENOXAPARIN NA (PORCINE) 40 MG/0.4 ML DISP.SYRIN SQ SCH (11:02)
[2018-08-14] MEDS: TAMSULOSIN HCL 0.4 MG CAP PO SCH (11:03)
[2018-08-14] MEDS: ACETAMINOPHEN 325 MG TABLET (FP) PO PRN ×3 (11:19→19:41)
--- NOTE | 2018-08-14 12:15 | PN ---
Progress Note, Physician Chief Complaint: patient seen and examined says he is having right groin pain dressing changed today earlier by surgery - Current Medication List Current Medications: Active Medications Acetaminophen (Tylenol -) 650 mg PO Q4H PRN PRN Reason: PAIN LEVEL 1 - 5 OR FEVER Last Admin: 08/14/18 11:19 Dose: 650 mg Enoxaparin Sodium (Lovenox -) 40 mg SQ DAILY [facility] Last Admin: 08/14/18 11:02 Dose: 40 mg Sodium Chloride (Normal Saline -) 1,000 mls @ 75 mls/hr IV ASDIR [facility] Last Admin: 08/13/18 18:03 Dose: Not Given Vancomycin HCl 1,250 mg/ (Dextrose) 250 mls @ 166.667 mls/hr IVPB Q12H [facility]; Protocol Last Admin: 08/14/18 03:24 Dose: 166.667 mls/hr Piperacillin Sod/Tazobactam (Sod 3.375 gm/ Dextrose) 50 mls @ 100 mls/hr IVPB Q8H-IV [facility]; Protocol Last Admin: 08/14/18 11:01 Dose: 100 mls/hr Melatonin (Melatonin) 5 mg PO HS PRN PRN Reason: INSOMNIA Last Admin: 08/13/18 22:37 Dose: 5 mg Tamsulosin HCl (Flomax -) 0.4 mg PO DAILY@0830 [facility] Last Admin: 08/14/18 11:03 Dose: 0.4 mg - Objective Vital Signs: Vital Signs Temperature 98.5 F 08/14/18 05:00 Pulse Rate 48 L 08/14/18 05:00 Respiratory Rate 14 08/14/18 05:00 Blood Pressure 99/58 L 08/14/18 05:00 O2 Sat by Pulse Oximetry (%) 97 08/13/18 21:00 Constitutional: Yes: Calm Cardiovascular: Yes: Regular Rate and Rhythm, S1, S2 Respiratory: Yes: CTA Bilaterally Gastrointestinal: Yes: Normal Bowel Sounds, Soft Genitourinary: Yes: Other (tenderness and erythema onver the right groin) Neurological: Yes: Alert, Oriented Labs: CBC, BMP 08/13/18 06:52 08/13/18 06:52 INR, PTT INR 1.03 (0.83-1.09) 08/12/18 11:07 Problem List - Problems (1) Cellulitis Assessment/Plan: right groin iv abx per ID to hold of surgical intervention for now dvt ppx Code(s): L03.90 - CELLULITIS, UNSPECIFIED Qualifiers: Site of cellulitis: unspecified site Qualified Code(s): L03.90 - Cellulitis , unspecified (2) Insomnia Assessment/Plan: melatonin Code(s): G47.00 - INSOMNIA, UNSPECIFIED
[2018-08-14] MEDS: SODIUM CHLORIDE 1,000 ML IV SCH (15:50)
--- NOTE | 2018-08-14 18:44 | PN ---
Progress Note, Physician History of Present Illness: OOB IN CHAIR C/O R GROIN PAIN AND SEROUS WOUND DRAINAGE AFTER ULTRASOUND NO C/O FEVER/ CHILLS TOLERATING ANTIBIOTICS - Current Medication List Current Medications: Active Medications Acetaminophen (Tylenol -) 650 mg PO Q4H PRN PRN Reason: PAIN LEVEL 1 - 5 OR FEVER Last Admin: 08/14/18 15:47 Dose: 650 mg Enoxaparin Sodium (Lovenox -) 40 mg SQ DAILY [facility] Last Admin: 08/14/18 11:02 Dose: 40 mg Sodium Chloride (Normal Saline -) 1,000 mls @ 75 mls/hr IV [facility] Last Admin: 08/14/18 15:50 Dose: 75 mls/hr Vancomycin HCl 1,250 mg/ (Dextrose) 250 mls @ 166.667 mls/hr IVPB Q12H [facility]; Protocol Last Admin: 08/14/18 15:45 Dose: 166.667 mls/hr Piperacillin Sod/Tazobactam (Sod 3.375 gm/ Dextrose) 50 mls @ 100 mls/hr IVPB Q8H-IV [facility]; Protocol Last Admin: 08/14/18 11:01 Dose: 100 mls/hr Melatonin (Melatonin) 5 mg PO HS PRN PRN Reason: INSOMNIA Last Admin: 08/13/18 22:37 Dose: 5 mg Tamsulosin HCl (Flomax -) 0.4 mg PO DAILY@0830 [facility] Last Admin: 08/14/18 11:03 Dose: 0.4 mg - Objective Vital Signs: Vital Signs Temperature 97.3 F L 08/14/18 13:42 Pulse Rate 50 L 08/14/18 13:42 Respiratory Rate 16 08/14/18 09:00 Blood Pressure 103/47 L 08/14/18 13:42 O2 Sat by Pulse Oximetry (%) 97 08/14/18 09:00 Constitutional: Yes: No Distress Cardiovascular: Yes: Regular Rate and Rhythm, S1, S2 Respiratory: Yes: CTA Bilaterally Gastrointestinal: Yes: Normal Bowel Sounds, Soft Extremities: Yes: Other (+ palpable cord R thigh Non tender No erythema) Integumentary: Yes: Other (+ ERYTHEMA R GROIN YELLOW SEROUS DRAINAGE ON DRESSING) Labs: CBC, BMP 08/13/18 06:52 08/13/18 06:52 INR, PTT INR 1.03 (0.83-1.09) 08/12/18 11:07 Assessment/Plan Cellulitis R groin R/O infected hematoma Lymphangitis R thigh improved Obtain c/s R groin drainage Continue empiric vancomycin/ zosyn
--- NOTE | 2018-08-14 19:25 | PN ---
Progress Note (short form) - Note Progress Note: Vascular Surgery Pt seen and examined. I&D of right groin performed. Cx from pus taken. Wound drained and packed with iodoform. Cx pending Cuba Falk DO
[2018-08-14] MEDS: MELATONIN 5 MG TABLETS PO PRN (22:12)
[2018-08-15] MEDS ORDERED: DEXTROSE 5%-WATER - 50 ML IVPB ONE ×3 (01:43→19:17)
[2018-08-15] MEDS ORDERED: PIPERACILLIN/TAZOBACTAM 3.375 GM VIAL IVPB ONE ×3 (01:43→19:17)
[2018-08-15] MEDS: PIPERACILLIN/TAZOB 3.375 GM 3.375 GM in DEXTROSE 5%-WATER - 50 ML IVPB SCH ×3 (02:00→19:30)
[2018-08-15] MEDS ORDERED: PT OWN MED DRAWER 7, Y5N ONE ×2 (02:02→18:21)
[2018-08-15] MEDS: ACETAMINOPHEN 325 MG TABLET (FP) PO PRN ×2 (02:18→07:48)
[2018-08-15] MEDS: VANCOMYCIN HCL 1,250 MG in DEXTROSE 5%-WATER - 250 ML IVPB SCH ×2 (02:43→15:48)
[2018-08-15] MEDS: TAMSULOSIN HCL 0.4 MG CAP PO SCH (07:53)
[2018-08-15 08:01] LABS: ALBUMIN 2.8 g/dl (3.4-5.0); BILIRUBIN,TOTAL 0.4 mg/dL (0.2-1); BLOOD UREA NITROGEN 6.9 mg/dL (7-18); CALCIUM 8.1 mg/dL (8.5-10.1); CREATININE 0.8 mg/dL (0.55-1.3); POTASSIUM 4.3 mmol/L (3.5-5.1); TOT PROT 5.8 g/dl (6.4-8.2)
[2018-08-15] MEDS ORDERED: oxyCODONE HCL 5 MG TABLET PO PRN (08:10)
[2018-08-15] MEDS ORDERED: MORPHINE SULFATE 2 MG/ML VIAL IVPUSH PRN (08:10)
[2018-08-15] MEDS: oxyCODONE HCL 5 MG TABLET PO PRN (08:31)
[2018-08-15 08:39] LABS: BASO % 0.9 % (0-2.0); EOS % 2.8 % (0-4.5); HEMATOCRIT 30.3 % (35.4-49); HEMOGLOBIN 10.3 GM/dL (11.7-16.9); LYMPH % 23.4 % (8-40); MCH 33.4 pg (25.7-33.7); MCHC 34.1 g/dl (32.0-35.9); MEAN CELL VOLUME 98.1 fl (80-96); MEAN PLT VOLUME 7.8 fl (7.5-11.1); MONO % 9.4 % (3.8-10.2); NEUT % 63.5 % (42.8-82.8); PLATELET COUNT 235 K/MM3 (134-434); RBC 3.09 M/mm3 (4.00-5.60); RDW 14.1 % (11.9-15.9)
--- NOTE | 2018-08-15 09:46 | PN ---
Progress Note (short form) - Note Progress Note: Pt seen and examined. Reports his pain has improved slightly since yesterday. Tolerating Po. Denies cp/sob, n/v/d, calf pain/edema. Vital Signs Temp 97.8 F 08/15/18 08:00 Pulse 43 L 08/15/18 08:00 Resp 18 08/15/18 08:00 BP 103/61 08/15/18 08:00 Pulse Ox 97 08/14/18 21:00 Intake & Output 08/14/18 08/14/18 08/15/18 11:59 23:59 11:59 Intake Total 1700 1175 Balance 1700 1175 Intake: IV 600 825 Normal Saline - 1,000 ml 600 825 @ 75 mls/hr IV [facility] Rx#:[id number] IVPB 350 350 Oral 750 Other: Voiding Method Toilet Toilet # Unmeasured Voids Void 3 2 Bowel Movement No CBC, BMP 08/15/18 06:45 08/15/18 06:45 Gen: awake, alert, nad Resp: unlabored on RA Groin: Right groin dressing removed with moderate murky drainage on 4x4, wound approx 2.5x2.5x3cms wound bed with fibrinous exudate. Approx 5ml murky fluid expressed from groin (unable to express more secondary to significant pain). Surrounding tissue indurated to approx 4cms medially and laterally. +TTP, + periwound erythema. A/P: 58 yo M w/ PMHx PAD, s/p right femoral endarterectomy (Dr Falk, 07/18/18), now admitted with R groin pain/erythema since 08/10. Pt found to have infected seroma/hematoma now s/p bedside I&D on 08/14. Right groin infection, open and draining. Concern for potential infection of femoral patch. -will continue BID packing with Iodoform, covered with 4x4s and ABD pads -Pain control: oxycodone 5/10mg q4hrs prn, Morphine 2mg q4hrs for BTP/dressing changes, Tylenol 650mg q4hrs prn -Bowel regimen -ABX per ID -F/U cultures -Pt is on the schedule for OR , 08/[address] Falk d/w attending Dr Falk
[2018-08-15] MEDS: ENOXAPARIN NA (PORCINE) 40 MG/0.4 ML DISP.SYRIN SQ SCH (09:52)
[2018-08-15] MEDS: POLYETHYLENE GLYCOL 3350 119 GM BTL PO SCH (11:03)
[2018-08-15] MEDS: DOCUSATE SODIUM 100 MG CAPSULE (FP) PO SCH ×2 (11:07→21:58)
--- NOTE | 2018-08-15 12:12 | PN ---
Progress Note, Physician Chief Complaint: Right groin cellulitis History of Present Illness: NAD -Pt is on the schedule for OR , 08/[address] Falk - Current Medication List Current Medications: Active Medications Acetaminophen (Tylenol -) 650 mg PO Q4H PRN PRN Reason: PAIN LEVEL 1 - 5 OR FEVER Last Admin: 08/15/18 07:48 Dose: 650 mg Docusate Sodium (Colace -) 100 mg PO BID [facility] Last Admin: 08/15/18 11:07 Dose: 100 mg Enoxaparin Sodium (Lovenox -) 40 mg SQ DAILY [facility] Last Admin: 08/15/18 09:52 Dose: 40 mg Sodium Chloride (Normal Saline -) 1,000 mls @ 75 mls/hr IV [facility] Last Admin: 08/14/18 15:50 Dose: 75 mls/hr Vancomycin HCl 1,250 mg/ (Dextrose) 250 mls @ 166.667 mls/hr IVPB Q12H [facility]; Protocol Last Admin: 08/15/18 02:43 Dose: 166.667 mls/hr Piperacillin Sod/Tazobactam (Sod 3.375 gm/ Dextrose) 50 mls @ 100 mls/hr IVPB Q8H-IV [facility]; Protocol Last Admin: 08/15/18 09:51 Dose: 100 mls/hr Melatonin (Melatonin) 5 mg PO HS PRN PRN Reason: INSOMNIA Last Admin: 08/14/18 22:12 Dose: 5 mg Morphine Sulfate (Morphine Sulfate) 2 mg IVPUSH Q4H PRN PRN Reason: PAIN LEVEL 7 - 10 Oxycodone HCl (Roxicodone -) 5 mg PO Q4H PRN PRN Reason: PAIN LEVEL 1-5 Last Admin: 08/15/18 08:31 Dose: 5 mg Oxycodone HCl (Roxicodone -) 10 mg PO Q4H PRN PRN Reason: PAIN LEVEL 6-10 Polyethylene Glycol (Miralax (For Daily Use) -) 17 gm PO DAILY [facility] Last Admin: 08/15/18 11:03 Dose: 17 grams Tamsulosin HCl (Flomax -) 0.4 mg PO DAILY@0830 [facility] Last Admin: 08/15/18 07:53 Dose: 0.4 mg - Objective Vital Signs: Vital Signs Temperature 97.8 F 08/15/18 08:00 Pulse Rate 43 L 08/15/18 08:00 Respiratory Rate 18 08/15/18 08:00 Blood Pressure 103/61 08/15/18 08:00 O2 Sat by Pulse Oximetry (%) 97 08/14/18 21:00 Labs: CBC, BMP 08/15/18 06:45 08/15/18 06:45 INR, PTT INR 1.03 (0.83-1.09) 08/12/18 11:07 Problem List - Problems (1) Cellulitis Assessment/Plan: -ID consult -IV abx -afebrile -acetaminophen for pain or fever -BC: Microbiology 08/14/18 19:25 Groin - Right Gram Stain - Final 08/14/18 18:00 Groin - Right Gram Stain - Final 08/12/18 11:07 Blood - Peripheral Venous Blood Culture - Preliminary NO GROWTH OBTAINED AFTER 72 HOURS, INCUBATION TO CONTINUE FOR 2 DAYS. 08/12/18 11:30 Blood - Peripheral Venous Blood Culture - Preliminary NO GROWTH OBTAINED AFTER 72 HOURS, INCUBATION TO CONTINUE FOR 2 DAYS. -Leukocytosis improved -Ice pack Q2h Code(s): L03.90 - CELLULITIS, UNSPECIFIED Qualifiers: Site of cellulitis: unspecified site Qualified Code(s): L03.90 - Cellulitis , unspecified (2) Peripheral arterial disease Assessment/Plan: -Vascular surgery consult Code(s): I73.9 - PERIPHERAL VASCULAR DISEASE, UNSPECIFIED Assessment/Plan see problem list
[2018-08-15] MEDS: SODIUM CHLORIDE 1,000 ML IV SCH (15:47)
[2018-08-15] MEDS: KETOROLAC TROMETHAMINE 15 MG/ML VIAL IVPUSH PRN (16:29)
--- NOTE | 2018-08-15 16:39 | PN ---
Progress Note (short form) - Note Progress Note: Pt seen this evening for dressing change/ Right groin appears slightly more erythematous than this morning. Plan for OR tomorrow, 08/16/18 for washout. Keep npo after midnight. CT w/ contrast ordered for further evaluation of infection. d/w attending Dr Falk
[2018-08-16] MEDS ORDERED: PIPERACILLIN/TAZOBACTAM 3.375 GM VIAL IVPB ONE ×3 (01:26→17:04)
[2018-08-16] MEDS ORDERED: DEXTROSE 5%-WATER - 50 ML IVPB ONE ×3 (01:27→17:04)
[2018-08-16] MEDS: PIPERACILLIN/TAZOB 3.375 GM 3.375 GM in DEXTROSE 5%-WATER - 50 ML IVPB SCH ×3 (02:00→18:25)
[2018-08-16] MEDS ORDERED: PT OWN MED DRAWER 7, Y5N ONE ×5 (02:19→17:44)
[2018-08-16] MEDS: VANCOMYCIN HCL 1,250 MG in DEXTROSE 5%-WATER - 250 ML IVPB SCH ×2 (03:00→14:24)
[2018-08-16 04:10] LABS: SERUM IRON SATURATION 13 % (15-55); TOTAL IRON BINDING CAPACITY 265 ug/dL (250-450); UIBC 231 ug/dL (111-343)
[2018-08-16] MEDS: KETOROLAC TROMETHAMINE 15 MG/ML VIAL IVPUSH PRN (06:45)
[2018-08-16] MEDS: TAMSULOSIN HCL 0.4 MG CAP PO SCH ×2 (08:24→09:10)
--- NOTE | 2018-08-16 09:06 | PN ---
Progress Note (short form) - Note Progress Note: Pt seen and examined. Reports his pain has improved slightly since yesterday. Tolerating Po. Has been oob ambulating. Denies cp/sob, n/v/d, calf pain/edema. Vital Signs Temp 97.7 F 08/16/18 05:51 Pulse 49 L 08/16/18 05:51 Resp 19 08/16/18 05:51 BP 119/60 08/16/18 05:51 Pulse Ox 98 08/15/18 21:00 Intake & Output 08/15/18 08/15/18 08/16/18 11:59 23:59 11:59 Intake Total 1425 1650 1415 Output Total 2 Balance 1425 1648 1415 Intake: IV 825 550 825 Normal Saline - 1,000 ml 825 550 825 @ 75 mls/hr IV [facility] Rx#:[id number] IVPB 350 350 350 Oral 250 750 240 Output: Urine 2 Void 2 Other: Voiding Method Toilet Toilet # Unmeasured Voids Void 2 3 Bowel Movement No CBC, BMP 08/15/18 06:45 08/15/18 06:45 Gen: awake, alert, nad Resp: unlabored on RA Groin: Right groin dressing removed with moderate murky drainage on 4x4, wound approx 2.5x2.5x3cms wound bed with fibrinous exudate. Approx 1ml murky fluid expressed from groin (unable to express more secondary to significant pain). Surrounding tissue indurated to approx 4cms medially and laterally. +TTP, erythema has receded from last night A/P: 58 yo M w/ PMHx PAD, s/p right femoral endarterectomy (Dr Falk, 07/18/18), now admitted with R groin pain/erythema since 08/10. Pt found to have infected seroma/hematoma now s/p bedside I&D on 08/14. Right groin infection, open and draining. Concern for potential infection of femoral patch. -will continue BID packing with Iodoform, covered with 4x4s and ABD pads -Pain control: oxycodone 5/10mg q4hrs prn, Morphine 2mg q4hrs for BTP/dressing changes, Tylenol 650mg q4hrs prn -Bowel regimen -ABX per ID -F/U cultures -Due to OR scheduling pt is back on the schedule for OR , 08/[address] Falk d/w attending Dr Falk
[2018-08-16] MEDS: DOCUSATE SODIUM 100 MG CAPSULE (FP) PO SCH ×2 (09:07→21:20)
[2018-08-16] MEDS: POLYETHYLENE GLYCOL 3350 119 GM BTL PO SCH (09:09)
[2018-08-16] MEDS: ENOXAPARIN NA (PORCINE) 40 MG/0.4 ML DISP.SYRIN SQ SCH (09:09)
--- NOTE | 2018-08-16 11:45 | PN ---
Progress Note, Physician Chief Complaint: Right groin cellulitis History of Present Illness: NAD Self ambulatory -Pt is on the schedule for OR , 08/[address] Falk - Current Medication List Current Medications: Active Medications Acetaminophen (Tylenol -) 650 mg PO Q4H PRN PRN Reason: PAIN LEVEL 1 - 5 OR FEVER Last Admin: 08/15/18 07:48 Dose: 650 mg Docusate Sodium (Colace -) 100 mg PO BID [facility] Last Admin: 08/16/18 09:07 Dose: 100 mg Enoxaparin Sodium (Lovenox -) 40 mg SQ DAILY [facility] Last Admin: 08/16/18 09:09 Dose: 40 mg Sodium Chloride (Normal Saline -) 1,000 mls @ 75 mls/hr IV [facility] Last Admin: 08/15/18 15:47 Dose: 75 mls/hr Vancomycin HCl 1,250 mg/ (Dextrose) 250 mls @ 166.667 mls/hr IVPB Q12H [facility]; Protocol Last Admin: 08/16/18 03:00 Dose: 166.667 mls/hr Piperacillin Sod/Tazobactam (Sod 3.375 gm/ Dextrose) 50 mls @ 100 mls/hr IVPB Q8H-IV [facility]; Protocol Last Admin: 08/16/18 09:07 Dose: 100 mls/hr Ketorolac Tromethamine (Toradol Injection -) 15 mg IVPUSH Q6H PRN PRN Reason: PAIN LEVEL 4 - 6 Stop: 08/20/18 15:39 Last Admin: 08/16/18 06:45 Dose: 15 mg Melatonin (Melatonin) 5 mg PO HS PRN PRN Reason: INSOMNIA Last Admin: 08/14/18 22:12 Dose: 5 mg Morphine Sulfate (Morphine Sulfate) 2 mg IVPUSH Q4H PRN PRN Reason: PAIN LEVEL 7 - 10 Oxycodone HCl (Roxicodone -) 5 mg PO Q4H PRN PRN Reason: PAIN LEVEL 1-5 Last Admin: 08/15/18 08:31 Dose: 5 mg Oxycodone HCl (Roxicodone -) 10 mg PO Q4H PRN PRN Reason: PAIN LEVEL 6-10 Polyethylene Glycol (Miralax (For Daily Use) -) 17 gm PO DAILY [facility] Last Admin: 08/16/18 09:09 Dose: 17 grams Tamsulosin HCl (Flomax -) 0.4 mg PO DAILY@0830 [facility] Last Admin: 08/16/18 09:10 Dose: 0.4 mg - Objective Vital Signs: Vital Signs Temperature 97.7 F 08/16/18 05:51 Pulse Rate 49 L 08/16/18 05:51 Respiratory Rate 08/16/18 05:51 Blood Pressure 119/60 08/16/18 05:51 O2 Sat by Pulse Oximetry (%) 98 08/15/18 21:00 Constitutional: Yes: Well Nourished, No Distress, Calm Cardiovascular: Yes: Regular Rate and Rhythm Respiratory: Yes: Regular Gastrointestinal: Yes: WNL Genitourinary: Yes: WNL Musculoskeletal: Yes: WNL Extremities: Yes: WNL Edema: No Peripheral Pulses WNL: Yes Wound/Incision: Yes: Dressing Dry and Intact, Other (Right groin abscess) Neurological: Yes: Alert, Oriented Psychiatric: Yes: Alert, Oriented Labs: CBC, BMP 08/15/18 06:45 08/15/18 06:45 INR, PTT INR 1.03 (0.83-1.09) 08/12/18 11:07 Problem List - Problems (1) Cellulitis Assessment/Plan: -ID consult -IV abx -afebrile -acetaminophen for pain or fever -BC: Microbiology 08/12/18 11:07 Blood - Peripheral Venous Blood Culture - Preliminary NO GROWTH OBTAINED AFTER 96 HOURS, INCUBATION TO CONTINUE FOR 1 DAYS. 08/12/18 11:30 Blood - Peripheral Venous Blood Culture - Preliminary NO GROWTH OBTAINED AFTER 96 HOURS, INCUBATION TO CONTINUE FOR 1 DAYS. 08/14/18 19:25 Groin - Right Gram Stain - Final 08/14/18 19:25 Groin - Right Wound Culture - Preliminary Strep Agalactiae Group B 08/14/18 18:00 Groin - Right Gram Stain - Final 08/14/18 18:00 Groin - Right Wound Culture - Preliminary NO GROWTH OBTAINED AFTER 24 HOURS INCUBATION, REINCUBATED. -Leukocytosis improved -Ice pack Q2h Code(s): L03.90 - CELLULITIS, UNSPECIFIED Qualifiers: Site of cellulitis: unspecified site Qualified Code(s): L03.90 - Cellulitis , unspecified (2) Peripheral arterial disease Assessment/Plan: -Vascular surgery consult Code(s): I73.9 - PERIPHERAL VASCULAR DISEASE, UNSPECIFIED (3) Iron deficiency anemia Assessment/Plan: -Start ferrous sulfate 1 tab daily Code(s): D50.9 - IRON DEFICIENCY ANEMIA, UNSPECIFIED Assessment/Plan see problem list self ambulatory
[2018-08-16] MEDS: SODIUM CHLORIDE 1,000 ML IV SCH (12:03)
[2018-08-16] MEDS: FERROUS SO4 325 MG TABLET (FP) PO SCH (16:47)
[2018-08-16] MEDS: oxyCODONE HCL 5 MG TABLET PO PRN ×2 (16:49→22:02)
[2018-08-16] MEDS: MELATONIN 5 MG TABLETS PO PRN (22:02)
[2018-08-17] MEDS ORDERED: LIDOCAINE HCL 1%, 10 MG/ML (20ML VIAL) INF ONE
[2018-08-17] MEDS ORDERED: DEXTROSE 5%-WATER - 50 ML IVPB ONE ×3 (02:11→16:41)
[2018-08-17] MEDS ORDERED: PIPERACILLIN/TAZOBACTAM 3.375 GM VIAL IVPB ONE ×4 (02:11→16:41)
[2018-08-17] MEDS ORDERED: PT OWN MED DRAWER 7, Y5N ONE ×2 (02:12→14:25)
[2018-08-17] MEDS: PIPERACILLIN/TAZOB 3.375 GM 3.375 GM in DEXTROSE 5%-WATER - 50 ML IVPB SCH ×2 (02:37→09:40)
[2018-08-17] MEDS: VANCOMYCIN HCL 1,250 MG in DEXTROSE 5%-WATER - 250 ML IVPB SCH (03:30)
[2018-08-17] MEDS: TAMSULOSIN HCL 0.4 MG CAP PO SCH (08:15)
--- NOTE | 2018-08-17 08:39 | PN ---
Progress Note (short form) - Note Progress Note: Pt seen and examined. Reports his pain has worsened since yesterday evening. Pt reports having increased pain with getting in and out of bed. Tolerating Po. Denies cp/sob, n/v/d, calf pain/edema. Vital Signs Temp 98.0 F 08/17/18 08:20 Pulse 50 L 08/17/18 08:20 Resp 14 08/17/18 08:20 BP 130/90 08/17/18 08:20 Pulse Ox 98 08/16/18 21:00 Intake & Output 08/16/18 08/16/18 08/17/18 11:59 23:59 11:59 Intake Total 1645 1890 1490 Balance 1645 1890 1490 Intake: IV 825 600 900 Normal Saline - 1,000 ml 825 600 900 @ 75 mls/hr IV [facility] Rx#:[id number] IVPB 350 350 350 Oral 470 940 240 Other: Voiding Method Toilet Toilet # Unmeasured Voids Void 3 2 2 Bowel Movement No No CBC, BMP 08/15/18 06:45 08/15/18 06:45 Gen: awake, alert, nad Resp: unlabored on RA Groin: Right groin dressing removed with moderate murky drainage on 4x4, wound approx 2.5x2.5x3cms wound bed with fibrinous exudate. Approx 1ml murky fluid expressed from groin (unable to express more secondary to significant pain). Surrounding tissue indurated to approx 4cms medially and laterally. +TTP, erythema has receded from last night A/P: 58 yo M w/ PMHx PAD, s/p right femoral endarterectomy (Dr Falk, 07/18/18), now admitted with R groin pain/erythema since 08/10. Pt found to have infected seroma/hematoma now s/p bedside I&D on 08/14. Right groin infection, open and draining. Concern for potential infection of femoral patch. -Case moved up this morning due to increased pain d.w attending Dr Falk Update: pt taken to OR this morning for washout. No pus noted just some fibrinous tissue along the medial/lateral aspects on the wound. Proximal portion of patch is intact with no obvious signs of infection. Pt planned for cta tomorrow morning to r/o pseudoaneurysm. Dressing to be changed in the morning by PAS. ID contacted (Dr Turner) for f/u regarding abx and cultures. Will continue to follow closely
[2018-08-17] MEDS: FERROUS SO4 325 MG TABLET (FP) PO SCH (09:00)
[2018-08-17] MEDS: DOCUSATE SODIUM 100 MG CAPSULE (FP) PO SCH ×2 (09:00→21:06)
[2018-08-17] MEDS: POLYETHYLENE GLYCOL 3350 119 GM BTL PO SCH (09:00)
[2018-08-17] MEDS ORDERED: LIDOCAINE HCL 1%, 10 MG/ML (20ML VIAL) ONE (09:29)
[2018-08-17] MEDS ORDERED: DEXAMETHASONE SOD PHOSPHATE 4 MG/1 ML VIAL ONE (09:37)
[2018-08-17] MEDS ORDERED: PROPOFOL 20 ML ONE ×2 (09:37)
[2018-08-17] MEDS ORDERED: MIDAZOLAM HCL 2 MG/2 ML SINGLE DOSE VIAL ONE (09:37)
[2018-08-17] MEDS ORDERED: EPHEDRINE SULFATE/0.9% NACL/PF 50 MG/10 ML SYRINGE NR ONE (10:33)
--- NOTE | 2018-08-17 11:16 | OP ---
Operative Note - Note: Operative Date: 08/17/18 Pre-Operative Diagnosis: Infection right groin Operation: Incison and drainage right groin Findings: no pus found Post-Operative Diagnosis: Same as Pre-op Surgeon: Cuba Falk Anesthesia: Fractional Estimated Blood Loss (mls): 20 Operative Report Dictated: Yes
[2018-08-17] MEDS ORDERED: HYDROmorphone HCl 2 MG/ML VIAL ONE (11:28)
[2018-08-17] MEDS ORDERED: HYDROmorphone HCl 2 MG/ML VIAL IVPUSH ONE (11:30)
[2018-08-17] MEDS ORDERED: MORPHINE SULFATE 2 MG/ML VIAL IVPUSH PRN (11:39)
[2018-08-17] MEDS ORDERED: KETOROLAC TROMETHAMINE 15 MG/ML VIAL IVPUSH PRN (11:39)
[2018-08-17] MEDS ORDERED: oxyCODONE HCL 5 MG TABLET PO PRN ×2 (11:39)
[2018-08-17] MEDS ORDERED: ACETAMINOPHEN 325 MG TABLET (FP) PO PRN (11:39)
[2018-08-17] MEDS ORDERED: MELATONIN 5 MG TABLETS PO PRN (11:39)
--- NOTE | 2018-08-17 11:39 | SURG ---
Surgery Specialist Employee Labor Relations Note Specialist Employee Labor Relations: Jeffeyr Franco PA-C (Suzy) Date of Service: 08/17/18 Diagnosis: Infection right groin Procedure: Incison and drainage right groin I was present for the entirety of the operative procedure. For further detail, please refer to operative report.
--- NOTE | 2018-08-17 11:40 | OP ---
DATE OF OPERATION: 08/17/2018 PREOPERATIVE DIAGNOSIS: Right groin infection. POSTOPERATIVE DIAGNOSIS: Right groin infection. PROCEDURE: Incision and drainage, right groin. SURGEON: Cuba Ryder DO [employer] SUPERVISOR: LISBETH Dejesus ANESTHESIA: General. BLOOD LOSS: 20 mL. INDICATIONS: The patient is a 58-year-old male that had a right femoral endarterectomy performed over a month ago and came back on day number 30 with right groin pain and fevers. Bedside we were able to open the incision and pus was expressed, and we have been packing the wound for the last 2 days. ID is on the case, and patient is receiving IV antibiotics. It was decided today to open the wound further and wash it out. Patient was consented for the procedure, understanding all risks, benefits, and alternatives, then taken to the operating room. DESCRIPTION OF PROCEDURE: Once in the operating room, he was laid on the operating table in supine manner, and the area of the right groin and leg were prepped and draped in a sterile surgical manner. We then went ahead and opened the incision another 2 inches proximally and distally. Once opened, there was minimal pus found. We were able to use Bovie electrocautery and open the indurated areas to make sure there was no loculated pus anywhere or any pockets of pus that were minimal. We then went ahead and opened the subcutaneous tissue. We did get down and look at a portion of the graft of our patch, which was scarred in and looked fine, did not look compromised. There were no pseudoaneurysms that could be found, and everything looked great. At this point, due to no pus being found, we washed out the area copiously. We then used 3-0 Vicryl and subcutaneous tissue was approximated, and the skin was closed with skin percy. Area was wet and dried, 4 x 4, Tegaderms were placed. Patient tolerated the procedure, no complications. Patient will be continued IV antibiotics and discharged home soon. CUBA RYDER DO [employer] MANAGER/[id number]
--- NOTE | 2018-08-17 11:46 | EKG ---
Test Reason : Blood Pressure : / mmHG Vent. Rate : 051 BPM Atrial Rate : 051 BPM P-R Int : 140 ms QRS Dur : 092 ms QT Int : 442 ms P-R-T Axes : 019 055 051 degrees QTc Int : 407 ms SINUS BRADYCARDIA WITH PREMATURE ATRIAL COMPLEXES OTHERWISE NORMAL ECG WHEN COMPARED WITH ECG OF 12-AUG-2018 11:11, NONSPECIFIC T WAVE ABNORMALITY NO LONGER EVIDENT IN LATERAL LEADS Confirmed by DAVID GUNN, TONIE ([id number]) on 08/17/2018 11:45:40 AM Referred By: CHRIS WASHINGTON DR Confirmed By:TONIE HERNANDEZ MD
[2018-08-17] MEDS: SODIUM CHLORIDE 1,000 ML IV SCH (12:00)
--- NOTE | 2018-08-17 12:12 | PN ---
Progress Note, Physician Chief Complaint: patient is back from OR incision and drainage right groin - Current Medication List Current Medications: Active Medications Acetaminophen (Tylenol -) 650 mg PO Q4H PRN PRN Reason: PAIN LEVEL 1 - 5 OR FEVER Docusate Sodium (Colace -) 100 mg PO BID [facility] Enoxaparin Sodium (Lovenox -) 40 mg SQ DAILY [facility] Ferrous Sulfate (Feosol -) 325 mg PO DAILY@0800 [facility] Sodium Chloride (Normal Saline -) 1,000 mls @ 75 mls/hr IV [facility] Vancomycin HCl 1,250 mg/ (Dextrose) 250 mls @ 166.667 mls/hr IVPB Q12H [facility]; Protocol Piperacillin Sod/Tazobactam (Sod 3.375 gm/ Dextrose) 50 mls @ 100 mls/hr IVPB Q8H-IV [facility]; Protocol Ketorolac Tromethamine (Toradol Injection -) 15 mg IVPUSH Q6H PRN PRN Reason: PAIN LEVEL 4 - 6 Stop: 08/20/18 15:39 Melatonin (Melatonin) 5 mg PO HS PRN PRN Reason: INSOMNIA Morphine Sulfate (Morphine Sulfate) 2 mg IVPUSH Q4H PRN PRN Reason: PAIN LEVEL 7 - 10 Oxycodone HCl (Roxicodone -) 5 mg PO Q4H PRN PRN Reason: PAIN LEVEL 1-5 Oxycodone HCl (Roxicodone -) 10 mg PO Q4H PRN PRN Reason: PAIN LEVEL 6-10 Polyethylene Glycol (Miralax (For Daily Use) -) 17 gm PO DAILY [facility] Tamsulosin HCl (Flomax -) 0.4 mg PO DAILY@0830 [facility] - Objective Vital Signs: Vital Signs Temperature 98.0 F 08/17/18 08:20 Pulse Rate 50 L 08/17/18 08:20 Respiratory Rate 14 08/17/18 08:20 Blood Pressure 130/90 08/17/18 08:20 O2 Sat by Pulse Oximetry (%) 98 08/17/18 09:00 Constitutional: Yes: Calm Cardiovascular: Yes: Regular Rate and Rhythm, S1, S2 Respiratory: Yes: CTA Bilaterally Gastrointestinal: Yes: Normal Bowel Sounds, Soft Musculoskeletal: Yes: Other Edema: No Wound/Incision: Yes: Other (right groin dressing noted lightly stained) Labs: CBC, BMP 08/15/18 06:45 08/15/18 06:45 INR, PTT INR 1.03 (0.83-1.09) 08/12/18 11:07 Problem List - Problems (1) Cellulitis Assessment/Plan: right groin s/p I/D iv abx per ID dvt ppx lower extremity CTA ordered to r/o pseudoaneursym Code(s): L03.90 - CELLULITIS, UNSPECIFIED Qualifiers: Site of cellulitis: unspecified site Qualified Code(s): L03.90 - Cellulitis , unspecified (2) Insomnia Assessment/Plan: melatonin Code(s): G47.00 - INSOMNIA, UNSPECIFIED
[2018-08-17] MEDS ORDERED: ONDANSETRON 4 MG/2 ML VIAL IVPUSH PRN (14:50)
[2018-08-17] MEDS ORDERED: VANCOMYCIN HCL 1,250 MG in DEXTROSE 5%-WATER - 250 ML IVPB SCH (15:00)
[2018-08-17] MEDS ORDERED: PIPERACILLIN/TAZOB 3.375 GM 3.375 GM in DEXTROSE 5%-WATER - 50 ML IVPB SCH (18:00)
--- NOTE | 2018-08-17 19:20 | PN ---
Progress Note, Physician History of Present Illness: AWAKE , ALERT IN BED S/P I&D, WASHOUT R GROIN NO C/O PAIN NO FEVER/ CHILLS WOUND C/S GBS BC(-) - Current Medication List Current Medications: Active Medications Acetaminophen (Tylenol -) 650 mg PO Q4H PRN PRN Reason: PAIN LEVEL 1 - 5 OR FEVER Docusate Sodium (Colace -) 100 mg PO BID [facility] Enoxaparin Sodium (Lovenox -) 40 mg SQ DAILY [facility] Fentanyl (Sublimaze Injection -) 25 mcg IVPUSH [id number] PRN PRN Reason: PAIN-PACU ORDER X 4 DOSES ONLY Stop: 08/18/18 14:49 Last Admin: 08/17/18 11:25 Dose: 25 mcg Ferrous Sulfate (Feosol -) 325 mg PO DAILY@0800 [facility] Sodium Chloride (Normal Saline -) 1,000 mls @ 75 mls/hr IV ASDIR [facility] Last Admin: 08/17/18 12:00 Dose: 0 mls Vancomycin HCl 1,250 mg/ (Dextrose) 250 mls @ 166.667 mls/hr IVPB Q12H [facility]; Protocol Last Admin: 08/17/18 14:30 Dose: 166.667 mls/hr Piperacillin Sod/Tazobactam (Sod 3.375 gm/ Dextrose) 50 mls @ 100 mls/hr IVPB Q8H-IV [facility]; Protocol Last Admin: 08/17/18 17:20 Dose: 100 mls/hr Ketorolac Tromethamine (Toradol Injection -) 15 mg IVPUSH Q6H PRN PRN Reason: PAIN LEVEL 4 - 6 Stop: 08/20/18 15:39 Last Admin: 08/17/18 17:34 Dose: 15 mg Melatonin (Melatonin) 5 mg PO HS PRN PRN Reason: INSOMNIA Morphine Sulfate (Morphine Sulfate) 2 mg IVPUSH Q4H PRN PRN Reason: PAIN LEVEL 7 - 10 Ondansetron HCl (Zofran Injection) 4 mg IVPUSH Q6H PRN PRN Reason: NAUSEA AND/OR VOMITING Oxycodone HCl (Roxicodone -) 5 mg PO Q4H PRN PRN Reason: PAIN LEVEL 1-5 Oxycodone HCl (Roxicodone -) 10 mg PO Q4H PRN PRN Reason: PAIN LEVEL 6-10 Polyethylene Glycol (Miralax (For Daily Use) -) 17 gm PO DAILY [facility] Tamsulosin HCl (Flomax -) 0.4 mg PO DAILY@0830 [facility] - Objective Vital Signs: Vital Signs Temperature 97.3 F L 08/17/18 12:30 Pulse Rate 50 L 08/17/18 12:30 Respiratory Rate 14 08/17/18 12:30 Blood Pressure 140/70 08/17/18 12:30 O2 Sat by Pulse Oximetry (%) 100 08/17/18 13:00 Constitutional: Yes: No Distress Cardiovascular: Yes: Regular Rate and Rhythm, S1, S2 Respiratory: Yes: CTA Bilaterally Gastrointestinal: Yes: Normal Bowel Sounds, Soft Integumentary: Yes: Other (POST OP DRESSING IN PLACE) Labs: CBC, BMP 08/15/18 06:45 08/15/18 06:45 INR, PTT INR 1.03 (0.83-1.09) 08/12/18 11:07 Assessment/Plan Cellulitis R groin S/P I&D, WASHOUT R GROIN WOUND Lymphangitis R thigh improved SUBSTITUTE CEFTRIAXONE 2GM Q24H DISCUSSED WITH DR RYDER [facility] FOR OUTPATIENT [facility]TIBIOTIC [place]
[2018-08-17] MEDS ORDERED: DEXTROSE 5%-WATER 100 ML IVPB ONE (20:11)
[2018-08-17] MEDS: CEFTRIAXONE 2 GM in DEXTROSE 5%-WATER 100 ML IVPB SCH (20:14)
--- NOTE | 2018-08-18 07:37 | SPA.POSTOP ---
- POST-OP NOTE POD #1 s/p right groin I&D with washout. No acute events since surgical procedure per RN notes. Patient resting comfortably. Pain management via prn meds. Denies n/v/f/c, CP or SOB. Last Vital Signs Temp Pulse Resp BP Pulse Ox 97.7 F 54 L 18 122/57 L 100 08/18/18 06:31 08/18/18 06:31 08/18/18 06:31 08/18/18 06:31 08/17/18 21:00 Microbiology 08/14/18 19:25 Groin - Right Gram Stain - Final 08/14/18 19:25 Groin - Right Wound Culture - Final Strep Agalactiae Group B 08/14/18 18:00 Groin - Right Gram Stain - Final 08/14/18 18:00 Groin - Right Wound Culture - Final NO GROWTH OF AEROBIC ORGANISMS AFTER 48 HOURS INCUBATION PE General: No acute distress. RLE: Soft, periwound erythema/cellulitis decreased significantly. Serous drainage to dressing (removed on rounds). [place] intact. Problem List - Problems (1) Cellulitis Assessment/Plan: POD #1 s/p Right groin I&D Dressing changed on rounds. ABX per ID Cont Medical Management OOB and ambulate PRN pain management Tylenol for fever > 100.4F Code(s): L03.90 - CELLULITIS, UNSPECIFIED Qualifiers: Site of cellulitis: unspecified site Qualified Code(s): L03.90 - Cellulitis , unspecified (2) Peripheral arterial disease Code(s): I73.9 - PERIPHERAL VASCULAR DISEASE, UNSPECIFIED Visit type - Case Type Case Type: ED Admission
[2018-08-18] MEDS ORDERED: FERROUS SO4 325 MG TABLET (FP) PO SCH (08:00)
[2018-08-18] MEDS ORDERED: TAMSULOSIN HCL 0.4 MG CAP PO SCH (08:30)
[2018-08-18 09:04] LABS: ALBUMIN 2.9 g/dl (3.4-5.0); BILIRUBIN,TOTAL 0.1 mg/dL (0.2-1); BLOOD UREA NITROGEN 11.3 mg/dL (7-18); CALCIUM 8.1 mg/dL (8.5-10.1); CREATININE 0.8 mg/dL (0.55-1.3); POTASSIUM 4.1 mmol/L (3.5-5.1); TOT PROT 5.9 g/dl (6.4-8.2)
[2018-08-18] MEDS ORDERED: DEXTROSE 5%-WATER 100 ML IVPB ONE (09:34)
[2018-08-18] MEDS: DOCUSATE SODIUM 100 MG CAPSULE (FP) PO SCH (09:47)
[2018-08-18] MEDS: CEFTRIAXONE 2 GM in DEXTROSE 5%-WATER 100 ML IVPB SCH (09:48)
[2018-08-18 09:52] LABS: BASO % 0.4 % (0-2.0); EOS % 1.6 % (0-4.5); HEMATOCRIT 31.3 % (35.4-49); HEMOGLOBIN 10.3 GM/dL (11.7-16.9); LYMPH % 31.1 % (8-40); MCH 32.4 pg (25.7-33.7); MEAN CELL VOLUME 98.2 fl (80-96); MEAN PLT VOLUME 7.7 fl (7.5-11.1); MONO % 8.7 % (3.8-10.2); NEUT % 58.2 % (42.8-82.8); PLATELET COUNT 346 K/MM3 (134-434); RBC 3.19 M/mm3 (4.00-5.60); WHITE BLOOD COUNT 4.9 K/mm3 (4.0-10.0)
[2018-08-18] MEDS ORDERED: ENOXAPARIN NA (PORCINE) 40 MG/0.4 ML DISP.SYRIN SQ SCH (10:00)
[2018-08-18] MEDS ORDERED: POLYETHYLENE GLYCOL 3350 119 GM BTL PO SCH (10:00)
[2018-08-18 12:31] VITALS: BP 119/65; PULSE 72; TEMP 97.9
--- NOTE | 2018-08-18 14:39 | DS ---
Physical Examination Vital Signs: Vital Signs Temperature 97.9 F 08/18/18 09:00 Pulse Rate 72 08/18/18 09:00 Respiratory Rate 18 08/18/18 09:00 Blood Pressure 119/65 08/18/18 09:00 O2 Sat by Pulse Oximetry (%) 100 08/18/18 09:00 Constitutional: Yes: Calm Cardiovascular: Yes: Regular Rate and Rhythm, S1, S2 Respiratory: Yes: CTA Bilaterally Gastrointestinal: Yes: Normal Bowel Sounds, Soft Wound/Incision: Yes: Other (right groin dressing) Neurological: Yes: Alert, Oriented Labs: CBC, BMP 08/18/18 07:37 08/18/18 07:37 Discharge Summary Reason For Visit: CELLULITIS Current Active Problems Cellulitis (Acute) Insomnia (Acute) Iron deficiency anemia (Acute) Other Procedures: duplex and vascular study. lower extremity CT and CTA runn off Hospital Course: PCP: Francisca Bloom - Admission Chief Complaint: Right groin cellulitis History of Present Illness: Mr Montalvo is a generally healthy 58 yo M presenting with right groin pain and swelling that started 08/10/18, got progressively worse. Pt with history of PAD, recently had right femoral endarterectomy on 07/18/18. Post op, no complications , but he noticed right thigh erythema, which he believes never went away. Pt woke up on 08/12/18 feeling dizzy, nauseas, like he was going to pass out, fever ( T-max-102.0 F). He called Dr Quintana- Vascular surgery, who instructed the patient to come in to [facility] ER for further evaluation. Pt also remember lifting heavy equipment at work on 08/10/18. patient in hospital got right groin I/D and startd iv abx needs 6 weeks Microbiology 08/14/18 19:25 Groin - Right Gram Stain - Final 08/14/18 19:25 Groin - Right Wound Culture - Final Strep Agalactiae Group B 08/12/18 11:30 Blood - Peripheral Venous Blood Culture - Preliminary NO GROWTH OBTAINED AFTER 48 HOURS, INCUBATION TO CONTINUE FOR 3 DAYS. 08/12/18 11:07 Blood - Peripheral Venous Blood Culture - Preliminary NO GROWTH OBTAINED AFTER 48 HOURS, INCUBATION TO CONTINUE FOR 3 DAYS. awaitng CTA to r/p pseudoaneruysm Condition: Stable - Instructions Diet, Activity, Other Instructions: rocephin 2gm daily for 6 weeks weekly labs follow up with PMD in one week FU with Dr quintana surgeon for one week Referrals: Cuba Quintana MD [Non Staff, Medical] - Cuba Quintana DO [Staff Physician] - 1 Week (for percy removal) Disposition: VNS/HOME HEALTH CARE - Home Medications Comprehensive Discharge Medication List: Ambulatory Orders Tamsulosin HCl [Flomax] 1 cap PO DAILY 01/19/16 Cholecalciferol (Vitamin D3) [Vitamin D3] 1 tab PO DAILY 01/24/17 Cyanocobalamin (Vitamin B-12) [Vitamin B-12] 1 tab PO DAILY 01/24/17
--- NOTE | 2018-08-18 14:50 | PN ---
Progress Note, Physician History of Present Illness: AWAKE , ALERT IN BED S/P I&D, WASHOUT R GROIN NO C/O PAIN NO FEVER/ CHILLS WOUND C/S GBS BC(-) - Current Medication List Current Medications: Active Medications Acetaminophen (Tylenol -) 650 mg PO Q4H PRN PRN Reason: PAIN LEVEL 1 - 5 OR FEVER Docusate Sodium (Colace -) 100 mg PO BID [facility] Last Admin: 08/18/18 09:47 Dose: 100 mg Enoxaparin Sodium (Lovenox -) 40 mg SQ DAILY [facility] Last Admin: 08/18/18 09:48 Dose: 40 mg Fentanyl (Sublimaze Injection -) 25 mcg IVPUSH [id number] PRN PRN Reason: PAIN-PACU ORDER X 4 DOSES ONLY Stop: 08/18/18 14:49 Last Admin: 08/17/18 11:25 Dose: 25 mcg Ferrous Sulfate (Feosol -) 325 mg PO DAILY@0800 [facility] Last Admin: 08/18/18 09:47 Dose: 325 mg Sodium Chloride (Normal Saline -) 1,000 mls @ 75 mls/hr IV ASDIR [facility] Last Admin: 08/17/18 12:00 Dose: 0 mls Ceftriaxone Sodium 2 gm/ (Dextrose) 100 mls @ 100 mls/hr IVPB DAILY [facility]; Protocol Last Admin: 08/18/18 09:48 Dose: 100 mls/hr Ketorolac Tromethamine (Toradol Injection -) 15 mg IVPUSH Q6H PRN PRN Reason: PAIN LEVEL 4 - 6 Stop: 08/20/18 15:39 Last Admin: 08/17/18 17:34 Dose: 15 mg Melatonin (Melatonin) 5 mg PO HS PRN PRN Reason: INSOMNIA Ondansetron HCl (Zofran Injection) 4 mg IVPUSH Q6H PRN PRN Reason: NAUSEA AND/OR VOMITING Oxycodone HCl (Roxicodone -) 5 mg PO Q4H PRN PRN Reason: PAIN LEVEL 1-5 Oxycodone HCl (Roxicodone -) 10 mg PO Q4H PRN PRN Reason: PAIN LEVEL 6-10 Last Admin: 08/17/18 21:06 Dose: 10 mg Polyethylene Glycol (Miralax (For Daily Use) -) 17 gm PO DAILY [facility] Last Admin: 08/18/18 09:44 Dose: 17 grams Tamsulosin HCl (Flomax -) 0.4 mg PO DAILY@0830 [facility] Last Admin: 08/18/18 09:47 Dose: 0.4 mg - Objective Vital Signs: Vital Signs Temperature 97.9 F 08/18/18 09:00 Pulse Rate 72 08/18/18 09:00 Respiratory Rate 18 08/18/18 09:00 Blood Pressure 119/65 08/18/18 09:00 O2 Sat by Pulse Oximetry (%) 100 08/18/18 09:00 Constitutional: Yes: No Distress Eyes: Yes: Conjunctiva Clear Cardiovascular: Yes: Regular Rate and Rhythm, S1, S2 Respiratory: Yes: CTA Bilaterally Gastrointestinal: Yes: Normal Bowel Sounds, Soft. No: Tenderness Extremities: Yes: Other (SURGICAL WOUND R GROIN WITH JAYLAN IN PLACE; DECREASED ERYTHEMA) Edema: No Labs: CBC, BMP 08/18/18 07:37 08/18/18 07:37 INR, PTT INR 1.03 (0.83-1.09) 08/12/18 11:07 Assessment/Plan Cellulitis R groin IMPROVED S/P I&D, WASHOUT R GROIN WOUND Lymphangitis R thigh RESOLVED CEFTRIAXONE 2GM Q24H DISCUSSED WITH DR ALEKSEY DRISCOLL FOR OUTPATIENT ANTIBIOTIC [place] F/U IN OFFICE 1WK
[2018-08-18] MEDS: SODIUM CHLORIDE 1,000 ML IV SCH (17:15)
--- NOTE | 2018-08-18 18:03 | PN ---
Progress Note (short form) - Note Progress Note: Vascular Surgery CTA images reviewed. Right groin - FISHER NET is intact. No signs of any pseudoaneurysms. The artery has good integrity on images. Doing much better. PICC line for antibiotics. Cuba Falk DO
== END 2018-08-18 18:31 | disposition home health service (06) | DRG 603 ==
LOC: JER 10:29 → JERBED 12:59 → J6S 14:55
PROVIDERS: ADMIT Family Medicine; ATTEND Family Medicine
PROC: 0J9C3ZX Drainage of Pelvic Region Subcutaneous Tissue and Fascia, Percutaneous Approach, Diagnostic (ICD-10-PCS; principal; 2018-08-17 12:30)
DX: L03.314 Cellulitis of groin (principal); Z98.890 Other specified postprocedural states; Z98.62 Peripheral vascular angioplasty status; I73.9 Peripheral vascular disease, unspecified; Z85.51 Personal history of malignant neoplasm of bladder; Z87.891 Personal history of nicotine dependence; E78.5 Hyperlipidemia, unspecified; G47.00 Insomnia, unspecified; D50.9 Iron deficiency anemia, unspecified
CPT/HCPCS: 36415; 36569; 71045-TC-FY; 73701-TC-RT; 75635-TC; 76882-TC-RT-FY; 77001-TC-FY; 80053; 82728; 82962; 83540; 83550; 83605; 84484; 85025; 85610; 85730; 86850; 86900; 86901; 86922; 87040; 87070; 87186; 87205; 93005; 93010; 93926-TC; 93971-TC; 94760; 99284-25; C1751; G0480; J0131; J7030

== ENCOUNTER 2019-01-19 13:15 | Inpatient (IN) | payer BC, OTHER ==
[2019-01-19] MEDS ORDERED: VANCOMYCIN 1 GM in D5W (PRE-DOCKED) 1,000 MG/250 ML IVPB ONE (14:27)
--- NOTE | 2019-01-19 14:33 | PDOC ---
History of Present Illness - General Chief Complaint: SIRS, Suspected/Possible Stated Complaint: fever Time Seen by Provider: 01/19/19 13:37 - History of Present Illness Initial Comments: 01/19/19 15:21 58 yo M PMH bladder cancer 5 years ago s/p surgery, R femoral endarterectomy July 2018 c/b infection, presenting with cellulitis. Patient had a fever on Tuesday and followed with his PMD, where they noted cellulitis in the R inguinal region. Patient refused IV antibiotics at that time, and was started on PO antibiotics at that time. However, the doctor marked the boundary of the cellulitis. Patient followed up again today and was noted to have expanding cellulitis despite outpatient PO antibiotics. States that he feels better than he did on Tuesday. Specifically denies CP, SOB , fevers/chills, constipation/diarrhea, N/V, MARIN, abd pain. Endorses fatigue and pain at site of cellulitis. Past History - Past Medical History Allergies/Adverse Reactions: Allergies Allergy/AdvReac Type Severity Reaction Status Date / Time No Known Allergies Allergy Verified 07/13/18 07:31 Home Medications: Ambulatory Orders Tamsulosin HCl [Flomax] 1 cap PO DAILY 01/19/16 Cholecalciferol (Vitamin D3) [Vitamin D3] 1 tab PO DAILY 01/24/17 Cyanocobalamin (Vitamin B-12) [Vitamin B-12] 1 tab PO DAILY 01/24/17 Clopidogrel Bisulfate [Plavix -] 75 mg PO DAILY 08/25/18 Anemia: No Asthma: No Cancer: Yes (bladder sx/chemo [id number]) Cardiac Disorders: No CVA: No COPD: No CHF: No Dementia: No Diabetes: No GI Disorders: No Disorders: No HTN: No Hypercholesterolemia: Yes (arterial stenosis) Liver Disease: No Seizures: No Thyroid Disease: No - Surgical History Abdominal Surgery: No Appendectomy: No Cardiac Surgery: No Cholecystectomy: No Lung Surgery: No Neurologic Surgery: Yes (CERVICAL SX FUSION) Orthopedic Surgery: No - Immunization History Immunization Up to Date: Yes - Psycho Social/Smoking Cessation Hx Smoking History: Unknown if ever smoked Have you smoked in the past 12 months: No Number of Cigarettes Smoked Daily: 20 If you are a former smoker, when did you quit?: 09/2017 Information on smoking cessation initiated: No 'Breaking Loose' booklet given: 02/03/17 Hx Alcohol Use: No Drug/Substance Use Hx: No Substance Use Type: Alcohol Hx Substance Use Treatment: No Review of Systems - Review of Systems Comments:: 01/19/19 15:25 GENERAL/CONSTITUTIONAL: No fever or chills. Fatigue. HEAD, EYES, EARS, NOSE AND THROAT: No change in vision. No ear pain or discharge. No sore throat. CARDIOVASCULAR: No chest pain. Mild SOB. RESPIRATORY: No cough, wheezing, or hemoptysis. GASTROINTESTINAL: No nausea, vomiting, diarrhea or constipation. GENITOURINARY: No dysuria, frequency, or change in urination. MUSCULOSKELETAL: No joint or muscle swelling or pain. No neck or back pain. SKIN: Cellulitis on R inguinal region NEUROLOGIC: No headache, vertigo, loss of consciousness, or change in strength/ sensation. ENDOCRINE: No increased thirst. No abnormal weight change. HEMATOLOGIC/LYMPHATIC: No anemia, easy bleeding, or history of blood clots. ALLERGIC/IMMUNOLOGIC: No hives or skin allergy *Physical Exam - Vital Signs Last Vital Signs Temp Pulse Resp BP Pulse Ox 97.7 F 77 16 141/92 100 01/19/19 13:15 01/19/19 13:15 01/19/19 13:15 01/19/19 13:15 01/19/19 13:15 - Physical Exam Comments: 01/19/19 15:31 Gen: well-developed, well-nourished, NAD Neuro: AAOX4, CN II-XII intact, FTN intact, EOMI, PERRLA, 5/5 strength, SILT HEENT: atraumatic, normocephalic, dry mucous membranes Neck: trachea midline, supple CV: regular rate, regular rhythm, no murmurs, rubs, or gallops Pulm: CTA b/l, no wheezing Abd: soft, non-distended, non-tender MSK: full ROM, intact pulses Extr: no edema, no deformities Skin: warm, dry, R inguinal cellulitis with patch on R flank ED Treatment Course - LABORATORY CBC & Chemistry Diagram: 01/19/19 15:00 01/19/19 15:00 Medical Decision Making - Medical Decision Making 01/19/19 15:26 Patient with expanding cellulitis, failure of outpatient therapy. - CBC, CMP - blood cultures - admit Discharge - Discharge Information Problems reviewed: Yes Clinical Impression/Diagnosis: Cellulitis - Follow up/Referral - Patient Discharge Instructions - Post Discharge Activity
[2019-01-19] MEDS ORDERED: VANCOMYCIN 1 GRAM (PRE-DOCKED) 1,000 MG/250 ML BAG IVPB ONE (15:00)
--- NOTE | 2019-01-19 15:09 | PDOC ---
Attending Attestation - Resident Resident Name: Evangelist Linares - ED Attending Attestation I have performed the following: I have examined & evaluated the patient, The case was reviewed & discussed with the resident, I agree w/resident's findings & plan, Exceptions are as noted - HPI HPI: 01/19/19 15:49 58 years old with past medical history significant for bladder cancer status post surgery right femoral endarterectomy in July complicated by stenosis of the left femoral insertion site complicated by infection requiring admission and IV antibiotics presents to the emergency department with 4-day history of worsening cellulitis. Patient spiked a fever outpatient on Tuesday was instructed to come to the hospital for IV antibiotics did not want to come and was started on a oral course of Augmentin patient has been taken 1 tab of the Augmentin daily his fever has resolved but the cellulitis has spread his leg remains painful it is persistent constant worse with movement. - Physicial Exam PE: 01/19/19 15:49 Vitals: Triage Vital signs reviewed General Appearance: No acute distress, well nourished well developed, Head: Atraumatic, Cardiac: Regular rate and rhythym, no murmurs, no rubs, no gallops, Lungs: Clear to auscultation bilateral, good air movement bilaterally, Abdomen: Soft, non distended, normal bowel sounds, non tender to palpation 2 patches of cellulitis extending past marked area to left thigh Extremities: Full range of motion to all extremities, no cyanosis, clubbing, or edema Skin: Warm and dry, rash to left upper thigh and left hip warm to touch erythematous blanching no lymphangitic spread Psych: Normal mood, normal affect - Medical Decision Making 01/19/19 15:53 Patient failed outpatient antibiotics. Will admit to hospital for IV antibiotics and further management.
[2019-01-19 15:18] LABS: BASO % 0.5 % (0-2.0); EOS % 0.8 % (0-4.5); HEMATOCRIT 37.2 % (35.4-49); HEMOGLOBIN 12.6 GM/dL (11.7-16.9); LYMPH % 16.4 % (8-40); MCH 32.8 pg (25.7-33.7); MCHC 33.8 g/dl (32.0-35.9); MEAN PLT VOLUME 6.8 fl (7.5-11.1); MONO % 8.3 % (3.8-10.2); PLATELET COUNT 310 K/MM3 (134-434); RBC 3.83 M/mm3 (4.00-5.60); RDW 13.6 % (11.9-15.9); WHITE BLOOD COUNT 5.9 K/mm3 (4.0-10.0)
--- NOTE | 2019-01-19 15:27 | HP ---
Admitting History and Physical - Primary Care Physician PCP: Francisca Bloom - Admission Chief Complaint: camei n for right thigh cellultitis History of Present Illness: 58 yr old male with h/o PAD came in with right groin brizuela and redness started 5 days ago he went to his PMD who told him to come to ER but patient refused and was given po abx, patient then had a fever upt o 101 on the following two days, and today he came to the ER patient had area marked by pmd with pen and today the area of redness has spread History Source: Patient - Past Medical History Cardiovascular: Yes: Hyperlipdemia - Smoking History Smoking history: Unknown if ever smoked Have you smoked in the past 12 months: No Aproximately how many cigarettes per day: 20 If you are a former smoker, when did you quit?: 09/2017 - Alcohol/Substance Use Hx Alcohol Use: No Home Medications - Allergies Allergies/Adverse Reactions: Allergies Allergy/AdvReac Type Severity Reaction Status Date / Time No Known Allergies Allergy Verified 07/13/18 07:31 - Home Medications Home Medications: Ambulatory Orders Tamsulosin HCl [Flomax] 1 cap PO DAILY 01/19/16 Cholecalciferol (Vitamin D3) [Vitamin D3] 1 tab PO DAILY 01/24/17 Cyanocobalamin (Vitamin B-12) [Vitamin B-12] 1 tab PO DAILY 01/24/17 Clopidogrel Bisulfate [Plavix -] 75 mg PO DAILY 08/25/18 Review of Systems - Review of Systems Musculoskeletal: reports: Extremity Pain (right thigh) Physical Examination Vital Signs: Vital Signs Temperature 97.7 F 01/19/19 13:15 Pulse Rate 77 01/19/19 13:15 Respiratory Rate 16 01/19/19 13:15 Blood Pressure 141/92 01/19/19 13:15 O2 Sat by Pulse Oximetry (%) 100 01/19/19 13:15 Constitutional: Yes: Calm Cardiovascular: Yes: Regular Rate and Rhythm, S1, S2 Respiratory: Yes: CTA Bilaterally Gastrointestinal: Yes: Normal Bowel Sounds, Soft Extremities: Yes: Erythema, Other (right thigh erythema) Edema: No Labs: CBC, BMP 01/19/19 15:00 Problem List - Problems (1) Cellulitis Assessment/Plan: iv vancomcycin to cover MRSA ID consult dvt ppx Code(s): L03.90 - CELLULITIS, UNSPECIFIED
[2019-01-19] MEDS ORDERED: ACETAMINOPHEN 325 MG TABLET (FP) PO PRN (15:49)
[2019-01-19 16:07] LABS: ALBUMIN 3.5 g/dl (3.4-5.0); BILIRUBIN,TOTAL 0.4 mg/dL (0.2-1); BLOOD UREA NITROGEN 14.8 mg/dL (7-18); CALCIUM 8.8 mg/dL (8.5-10.1); CREATININE 0.8 mg/dL (0.55-1.3); POTASSIUM 4.2 mmol/L (3.5-5.1); TOT PROT 7.4 g/dl (6.4-8.2)
[2019-01-19 17:57] VITALS: BMI 23.8
[2019-01-19] MEDS ORDERED: CEFTRIAXONE 2 GM-D5W BAG 2 GM/50 ML BAG IVPB SCH (18:00)
[2019-01-19] MEDS ORDERED: CEFAZOLIN 1 GM in DEXTROSE 5%-WATER - 50 ML IVPB SCH (18:00)
--- NOTE | 2019-01-19 18:13 | PN ---
Progress Note (short form) - Note Progress Note: ID consult dictated imp/reccd 58 yo man with pmh of PAD and bladder cancer he is s/p femoral endarterectomy with patch in July, he developed a right groin infection and underwent a right groin inciision and drainage in August 2018 wound culture grew group B strep and he was discharged home with a PICC line on iv ceftriaxone for 6 weeks he reports having a wound vac and the wound ultimately closed now reports developing fever Tuesday am, by afternoon he had pain in his groin went to his PMD who advised ER evaluation and admission- he opted for oral antibiotics- po augmentin which he started Tuesday night he notes the fevers are resolved but the erythema has slightly enlarged since Tuesday so he came to the ER today feels well no nausea or vomiting no leg pain +erythema right thigh , healed incision with area of surrounding eythema, some induration that is painful on palpation CBC, BMP 01/19/19 15:00 01/19/19 15:00 cellulitis of the thigh r/o underlying abscess or recurrent infection of the patch will get ct scan with contrast to r/o abscess/collection at the site d/w dr quintana- he will see patient esr/crp vancomycin/zosyn for now f/u blood cultures Problem List - Problems (1) Cellulitis Code(s): L03.90 - CELLULITIS, UNSPECIFIED Qualifiers: Site of cellulitis of extremity: lower extremity (2) Abscess of right groin Code(s): L02.214 - CUTANEOUS ABSCESS OF GROIN (3) Infection of prosthetic graft Code(s): T85.79XA - INFECT/INFLM REACTION DUE TO OTH INT PROSTH DEV/GRFT, INIT Qualifiers: Encounter type: initial encounter Qualified Code(s): T85.79XA - Infection and inflammatory reaction due to other internal prosthetic devices, implants and grafts, initial encounter
[2019-01-19] MEDS ORDERED: PIPERACILLIN/TAZOBACTAM 3.375 GM VIAL IVPB ONE (18:55)
[2019-01-19] MEDS ORDERED: DEXTROSE 5%-WATER - 50 ML IVPB ONE (18:55)
[2019-01-19] MEDS: PIPERACILLIN/TAZOB 3.375 GM 3.375 GM in DEXTROSE 5%-WATER - 50 ML IVPB SCH (18:56)
--- NOTE | 2019-01-19 19:50 | CONS ---
DATE OF CONSULTATION: DATE OF DICTATION: 01/19/2019 INFECTIOUS DISEASE CONSULTATION REQUESTING PHYSICIAN: Francisca Bloom M.D. CONSULTING PHYSICIAN: Celestina Humphreys M.D. HISTORY OF PRESENT ILLNESS: A 58-year-old man who has history of peripheral vascular disease. He underwent a right femoral endarterectomy with patch in July of 2018. He subsequently was admitted in August with erythema, pain and swelling of the right groin. He underwent on August 17 a washout of that area. Cultures grew B. strep from the wound alone. He was treated with a 6-week course of ceftriaxone, which he completed. The wound closed, and he has been doing well. On Tuesday he woke up in the morning feeling feverish. As the day went on he developed pain in his right leg. He went to see his PMD who advised admission for IV antibiotics, which he declined, and he was started on Augmentin. The area was marked on his leg, and today he noted that the marking had increased and he presented to the ER. He had fever on Tuesday and a little bit on Tuesday and since then has been afebrile. There has been no nausea, vomiting, diarrhea, or dysuria. He is eating well. PAST MEDICAL HISTORY: Notable for history of peripheral vascular disease and bladder cancer. SURGICAL HISTORY: Notable for removal of a bladder tumor and history of cervical spine fusion. ALLERGIES: No known drug allergies. MEDICATION: He takes Flomax as an outpatient, and he started the Augmentin on Tuesday. FAMILY HISTORY: Noncontributory. SOCIAL HISTORY: A former smoker. He works as a thorne for the city. He is originally from [place]. He lives alone. REVIEW OF SYSTEMS: As per HPI. PHYSICAL EXAMINATION: General: He is awake and alert. Vital Signs: Temperature is 97.5. His pulse is 64, blood pressure 140/782, respiratory rate 18, he weighs 73 kg. HEENT: Normocephalic. Eyes are anicteric. Neck: Supple. Lungs: Clear to auscultation. Heart: Regular rate and rhythm. Abdomen: Soft, nontender. He has an area of erythema. There is a well healed wound in his right groin that extends down to his thigh. He has an area of induration that is painful. There is no fluctuance. He reports he has had that induration since the prior surgery. LABORATORY: White count is 5.9, hemoglobin 12.6, platelets are 310. His BUN and creatinine are 14 and 0.8, and his LFTs are normal. His blood cultures are pending and prior culture from the wound grew group B strep. IMPRESSION: In summary, this is a 58-year-old man with recurrent cellulitis at the site of his prior right groin infection. He has obviously cellulitis, concerns would include ruling out underlying abscess or recurrent infection of the patch that was placed there. We will get CT scan with contrast to rule out abscess or collection at the site. Case was discussed with Dr. Falk. He will see the patient. Will check a sedimentation rate, a CRP. Will treat him broadly for now with vancomycin and Zosyn given the fact that the cellulitis has spread on Augmentin, and will follow up blood cultures. Further recommendations to follow. CELESTINA HUMPHREYS M.D. [id number]
[2019-01-19] MEDS: MELATONIN 5 MG TABLETS PO SCH (22:13)
[2019-01-20] MEDS ORDERED: PIPERACILLIN/TAZOBACTAM 3.375 GM VIAL IVPB ONE ×3 (00:38→17:19)
[2019-01-20] MEDS ORDERED: DEXTROSE 5%-WATER - 50 ML IVPB ONE ×3 (00:38→17:19)
[2019-01-20] MEDS: PIPERACILLIN/TAZOB 3.375 GM 3.375 GM in DEXTROSE 5%-WATER - 50 ML IVPB SCH ×3 (01:58→17:21)
[2019-01-20] MEDS: VANCOMYCIN 1 GRAM (PRE-DOCKED) 1,000 MG/250 ML BAG IVPB SCH ×2 (02:19→15:10)
--- NOTE | 2019-01-20 07:20 | PN ---
Progress Note, Physician Chief Complaint: Right thigh cellulitis History of Present Illness: NAD right thigh cellulitis improved - Current Medication List Current Medications: Active Medications Acetaminophen (Tylenol -) 650 mg PO Q4H PRN PRN Reason: FEVER Enoxaparin Sodium (Lovenox -) 40 mg SQ DAILY [facility] Vancomycin HCl (Vancomycin (Pre-Docked)) 1,000 mg in 250 mls @ 166.667 mls/hr IVPB BID@0300,1500 [facility]; Protocol Last Admin: 01/20/19 02:19 Dose: 166.667 mls/hr Piperacillin Sod/Tazobactam (Sod 3.375 gm/ Dextrose) 50 mls @ 100 mls/hr IVPB Q8H-IV [facility]; Protocol Last Admin: 01/20/19 01:58 Dose: 100 mls/hr Melatonin (Melatonin) 5 mg PO HS [facility] Last Admin: 01/19/19 22:13 Dose: 5 mg Tamsulosin HCl (Flomax -) 0.4 mg PO DAILY@0800 [facility] - Objective Vital Signs: Vital Signs Temperature 98.2 F 01/20/19 06:09 Pulse Rate 51 L 01/20/19 06:09 Respiratory Rate 18 01/20/19 06:09 Blood Pressure 92/48 L 01/20/19 06:09 O2 Sat by Pulse Oximetry (%) 97 01/19/19 21:00 Constitutional: Yes: Well Nourished, No Distress, Calm Cardiovascular: Yes: Regular Rate and Rhythm Respiratory: Yes: Regular Gastrointestinal: Yes: WNL, Normal Bowel Sounds, Soft Genitourinary: Yes: WNL Musculoskeletal: Yes: WNL Extremities: Yes: Erythema (right thigh) Edema: No Peripheral Pulses WNL: Yes Integumentary: Yes: Erythema (right thigh+ abscess formation S) Neurological: Yes: Alert, Oriented Psychiatric: Yes: Alert, Oriented Labs: CBC, BMP 01/19/19 15:00 01/19/19 15:00 Problem List - Problems (1) Cellulitis Assessment/Plan: -ID consult -Started on IV Zosyn and Vanco -BC pending -afebrile+ no leukocytosis -CT Right lower extremity pending -will consider surgical consult pending CT results Problems reviewed: Yes Code(s): L03.90 - CELLULITIS, UNSPECIFIED Assessment/Plan see problem list self ambulatory
[2019-01-20] MEDS: TAMSULOSIN HCL 0.4 MG CAP PO SCH (08:22)
[2019-01-20 08:42] LABS: HEMATOCRIT 33.4 % (35.4-49); HEMOGLOBIN 11.4 GM/dL (11.7-16.9); MCH 33.4 pg (25.7-33.7); MCHC 34.2 g/dl (32.0-35.9); MEAN CELL VOLUME 97.6 fl (80-96); MEAN PLT VOLUME 7.2 fl (7.5-11.1); PLATELET COUNT 299 K/MM3 (134-434); RBC 3.42 M/mm3 (4.00-5.60); RDW 13.8 % (11.9-15.9); WHITE BLOOD COUNT 5.9 K/mm3 (4.0-10.0)
[2019-01-20 08:56] LABS: INR 1.05 (0.83-1.09); PROTHROMBIN TIME (PATIENT) 12.4 SEC (9.7-13.0)
[2019-01-20 08:59] LABS: ACTIVATED PTT 31.2 SECONDS (25.2-36.5)
[2019-01-20 09:09] LABS: ALBUMIN 3.1 g/dl (3.4-5.0); BILIRUBIN,TOTAL 0.4 mg/dL (0.2-1); BLOOD UREA NITROGEN 14.7 mg/dL (7-18); CALCIUM 8.6 mg/dL (8.5-10.1); CREATININE 0.8 mg/dL (0.55-1.3); MAGNESIUM 2.3 mg/dL (1.8-2.4); PHOSPHOROUS 4.6 mg/dL (2.5-4.9); POTASSIUM 4.2 mmol/L (3.5-5.1); TOT PROT 6.5 g/dl (6.4-8.2)
[2019-01-20] MEDS ORDERED: PT OWN MED DRAWER 7, Y5N ONE (10:20)
[2019-01-20] MEDS: ENOXAPARIN NA (PORCINE) 40 MG/0.4 ML DISP.SYRIN SQ SCH (10:23)
--- NOTE | 2019-01-20 14:10 | PN ---
Progress Note (short form) - Note Progress Note: less erythema of the right groin Vital Signs Period Temp Pulse Resp BP Sys/Singleton Pulse Ox Last 24 Hr 97.5 F-98.2 F 51-64 18-18 92-140/48-72 97-97 cor-rrr lungs clear groin less erythema still quite tender CBC, BMP 01/20/19 07:35 01/20/19 07:35 ct scan results pending Laboratory Tests 01/20/19 01/20/19 07:35 07:35 ESR 82 H C-Reactive Protein 7.8 H blood cultures pending a/p cellulitis of the thigh r/o underlying abscess or recurrent infection of the patch-prior culyure group b strep ct scan results pending continue vanco/zosyn
[2019-01-20] MEDS: MELATONIN 5 MG TABLETS PO SCH (22:00)
[2019-01-21] MEDS ORDERED: PIPERACILLIN/TAZOBACTAM 3.375 GM VIAL IVPB ONE ×3 (02:12→19:03)
[2019-01-21] MEDS ORDERED: DEXTROSE 5%-WATER - 50 ML IVPB ONE ×3 (02:12→19:03)
[2019-01-21] MEDS: PIPERACILLIN/TAZOB 3.375 GM 3.375 GM in DEXTROSE 5%-WATER - 50 ML IVPB SCH ×3 (02:42→19:05)
[2019-01-21] MEDS: VANCOMYCIN 1 GRAM (PRE-DOCKED) 1,000 MG/250 ML BAG IVPB SCH ×2 (04:08→16:57)
[2019-01-21] MEDS: TAMSULOSIN HCL 0.4 MG CAP PO SCH (08:12)
[2019-01-21] MEDS ORDERED: PT OWN MED DRAWER 7, Y5N ONE ×2 (09:38→13:23)
[2019-01-21] MEDS: ENOXAPARIN NA (PORCINE) 40 MG/0.4 ML DISP.SYRIN SQ SCH (10:25)
--- NOTE | 2019-01-21 11:01 | PN ---
Progress Note, Physician Chief Complaint: Right thigh cellulitis History of Present Illness: NAD, c/o canker sores right thigh cellulitis improved- no redness today CT RLE shows right thigh abscess + Bladder wall thickening - Current Medication List Current Medications: Active Medications Acetaminophen (Tylenol -) 650 mg PO Q4H PRN PRN Reason: FEVER Enoxaparin Sodium (Lovenox -) 40 mg SQ DAILY [facility] Last Admin: 01/21/19 10:25 Dose: 40 mg Vancomycin HCl (Vancomycin (Pre-Docked)) 1,000 mg in 250 mls @ 166.667 mls/hr IVPB BID@0300,1500 [facility]; Protocol Last Admin: 01/21/19 04:08 Dose: 166.667 mls/hr Piperacillin Sod/Tazobactam (Sod 3.375 gm/ Dextrose) 50 mls @ 100 mls/hr IVPB Q8H-IV [facility]; Protocol Last Admin: 01/21/19 10:25 Dose: 100 mls/hr Melatonin (Melatonin) 5 mg PO HS [facility] Last Admin: 01/20/19 22:00 Dose: 5 mg Tamsulosin HCl (Flomax -) 0.4 mg PO DAILY@0800 [facility] Last Admin: 01/21/19 08:12 Dose: 0.4 mg - Objective Vital Signs: Vital Signs Temperature 98.1 F 01/21/19 08:09 Pulse Rate 45 L 01/21/19 08:09 Respiratory Rate 18 01/21/19 08:09 Blood Pressure 105/54 L 01/21/19 08:09 O2 Sat by Pulse Oximetry (%) 97 01/20/19 21:00 Constitutional: Yes: Well Nourished, No Distress, Calm Cardiovascular: Yes: Regular Rate and Rhythm Respiratory: Yes: Regular Gastrointestinal: Yes: Normal Bowel Sounds, Soft Genitourinary: Yes: WNL Musculoskeletal: Yes: WNL Extremities: Yes: WNL Edema: No Peripheral Pulses WNL: Yes Neurological: Yes: Alert, Oriented Psychiatric: Yes: Alert, Oriented Labs: CBC, BMP 01/20/19 07:35 01/20/19 07:35 INR, PTT INR 1.05 (0.83-1.09) 01/20/19 07:35 Problem List - Problems (1) Cellulitis Assessment/Plan: -ID consult -Started on IV Zosyn and Vanco -BC pending -afebrile+ no leukocytosis -CT Right lower extremity reviewed -Surgical consult Problems reviewed: Yes Code(s): L03.90 - CELLULITIS, UNSPECIFIED (2) Canker sores oral Assessment/Plan: -protonix 40 mg po daily -GERD diet -oragel PRN Problems reviewed: Yes Code(s): K12.0 - RECURRENT ORAL APHTHAE Assessment/Plan see problem list
[2019-01-21] MEDS: PANTOPRAZOLE 40 MG TABLET (FP) PO SCH (11:39)
[2019-01-21] MEDS: BENZOCAINE 20 % GEL TUBE MM PRN ×2 (13:24→21:47)
--- NOTE | 2019-01-21 15:03 | PN ---
Progress Note (short form) - Note Progress Note: erythema resolved Vital Signs Period Temp Pulse Resp BP Sys/Singleton Pulse Ox Last 24 Hr 97.3 F-98.4 F 45-64 18-20 90-116/50-62 97 cor-rrr lungs clear +pain and swelling right groin no erythema CBC, BMP 01/20/19 07:35 01/20/19 07:35 Laboratory Tests 01/20/19 01/20/19 07:35 07:35 ESR 82 H C-Reactive Protein 7.8 H Microbiology 01/19/19 15:00 Blood - Peripheral Venous Blood Culture - Preliminary NO GROWTH OBTAINED AFTER 24 HOURS, INCUBATION TO CONTINUE FOR 4 DAYS. 01/19/19 15:00 Blood - Peripheral Venous Blood Culture - Preliminary NO GROWTH OBTAINED AFTER 24 HOURS, INCUBATION TO CONTINUE FOR [address] scan with abscess right groin a/p abscess right groin cellulitis of the thigh-resolved awiting vascular surgery opinion patient has also requested a second opinion concern for patch infection continue vanco/zosyn vancomycin trough ordered
[2019-01-21 16:23] LABS: BLOOD UREA NITROGEN 11.6 mg/dL (7-18); CALCIUM 8.3 mg/dL (8.5-10.1); CREATININE 0.9 mg/dL (0.55-1.3); POTASSIUM 4.3 mmol/L (3.5-5.1)
--- NOTE | 2019-01-21 20:20 | EKG ---
Test Reason : Blood Pressure : / mmHG Vent. Rate : 064 BPM Atrial Rate : 064 BPM P-R Int : 138 ms QRS Dur : 086 ms QT Int : 408 ms P-R-T Axes : 058 055 056 degrees QTc Int : 420 ms SINUS RHYTHM WITH MARKED SINUS ARRHYTHMIA OTHERWISE NORMAL ECG WHEN COMPARED WITH ECG OF 16-AUG-2018 12:16, PREMATURE ATRIAL COMPLEXES ARE NO LONGER PRESENT Confirmed by FEI PAUL MD ([id number]) on 01/21/2019 8:19:41 PM Referred By: Confirmed By:FEI PAUL MD
[2019-01-21] MEDS: MELATONIN 5 MG TABLETS PO SCH (21:47)
[2019-01-22] MEDS ORDERED: PIPERACILLIN/TAZOBACTAM 3.375 GM VIAL IVPB ONE ×3 (01:16→17:14)
[2019-01-22] MEDS ORDERED: DEXTROSE 5%-WATER - 50 ML IVPB ONE ×3 (01:16→17:14)
[2019-01-22] MEDS: PIPERACILLIN/TAZOB 3.375 GM 3.375 GM in DEXTROSE 5%-WATER - 50 ML IVPB SCH ×3 (01:27→17:50)
[2019-01-22] MEDS: VANCOMYCIN 1 GRAM (PRE-DOCKED) 1,000 MG/250 ML BAG IVPB SCH ×2 (02:35→16:21)
--- NOTE | 2019-01-22 09:09 | PN ---
Progress Note (short form) - Note Progress Note: Vascular Surgery Pt seen and examined. 07/13/18 pt had a right femoral Endarterectomy for one block claudication. pt had a I&D of right groin for abscess. Pt then recieved 4-6 weeks of IV antbiobitics via picc line. Pt now comes in 4 months later with cellulitis of thigh and right groin pain below site of incision. Pt feels a lot better today. Cellulitis has resolved. CT scan does show a 4x3 collection. The area is tender to touch on exam. Question of whether the dacron patch is infected and needs to be replaced with a vein patch. Pt wants second opinion. Dr. De La Torre consulted. Will await his eval. [place] Falk DO
[2019-01-22] MEDS: ENOXAPARIN NA (PORCINE) 40 MG/0.4 ML DISP.SYRIN SQ SCH (09:10)
[2019-01-22] MEDS: PANTOPRAZOLE 40 MG TABLET (FP) PO SCH (09:10)
[2019-01-22] MEDS: TAMSULOSIN HCL 0.4 MG CAP PO SCH (09:10)
--- NOTE | 2019-01-22 12:11 | PN ---
Progress Note, Physician Chief Complaint: RLE Cellulitis History of Present Illness: Previous notes and events reviewed awake and alert NAD afebrile no leukocytosis BC neg - Current Medication List Current Medications: Active Medications Acetaminophen (Tylenol -) 650 mg PO Q4H PRN PRN Reason: FEVER Benzocaine (Anbesol -) 1 applic MM Q6H PRN PRN Reason: ORAL PAIN/MOUTH SORES Last Admin: 01/21/19 21:47 Dose: 1 applic Enoxaparin Sodium (Lovenox -) 40 mg SQ DAILY [facility] Last Admin: 01/22/19 09:10 Dose: 40 mg Vancomycin HCl (Vancomycin (Pre-Docked)) 1,000 mg in 250 mls @ 166.667 mls/hr IVPB BID@0300,1500 [facility]; Protocol Last Admin: 01/22/19 02:35 Dose: 166.667 mls/hr Piperacillin Sod/Tazobactam (Sod 3.375 gm/ Dextrose) 50 mls @ 100 mls/hr IVPB Q8H-IV [facility]; Protocol Last Admin: 01/22/19 09:09 Dose: 100 mls/hr Melatonin (Melatonin) 5 mg PO HS [facility] Last Admin: 01/21/19 21:47 Dose: 5 mg Pantoprazole Sodium (Protonix -) 40 mg PO DAILY [facility] Last Admin: 01/22/19 09:10 Dose: 40 mg Tamsulosin HCl (Flomax -) 0.4 mg PO DAILY@0800 [facility] Last Admin: 01/22/19 09:10 Dose: 0.4 mg - Objective Vital Signs: Vital Signs Temperature 98.2 F 01/22/19 09:07 Pulse Rate 65 01/22/19 09:07 Respiratory Rate 18 01/22/19 09:07 Blood Pressure 118/77 01/22/19 09:07 O2 Sat by Pulse Oximetry (%) 98 01/21/19 21:00 Constitutional: Yes: No Distress, Calm Eyes: Yes: Conjunctiva Clear HENT: Yes: Atraumatic Cardiovascular: Yes: Regular Rate and Rhythm Respiratory: Yes: Regular, CTA Bilaterally Gastrointestinal: Yes: Normal Bowel Sounds, Soft Musculoskeletal: Yes: WNL Extremities: Yes: WNL Edema: No Integumentary: Yes: Other (abscess R groin) Neurological: Yes: Alert, Oriented Psychiatric: Yes: Alert, Oriented Labs: CBC, BMP 01/20/19 07:35 01/21/19 15:05 INR, PTT INR 1.05 (0.83-1.09) 01/20/19 07:35 Microbiology 01/19/19 15:00 Blood - Peripheral Venous Blood Culture - Preliminary NO GROWTH OBTAINED AFTER 48 HOURS, INCUBATION TO CONTINUE FOR 3 DAYS. 01/19/19 15:00 Blood - Peripheral Venous Blood Culture - Preliminary NO GROWTH OBTAINED AFTER 48 HOURS, INCUBATION TO CONTINUE FOR 3 DAYS. Problem List - Problems (1) Cellulitis Assessment/Plan: -ID on board -afebrile -no leukocytosis -Vancomycin, Leukocytosis -BC neg Code(s): L03.90 - CELLULITIS, UNSPECIFIED Qualifiers: Site of cellulitis of extremity: lower extremity (2) Peripheral arterial disease Assessment/Plan: -Vascular on board Code(s): I73.9 - PERIPHERAL VASCULAR DISEASE, UNSPECIFIED Assessment/Plan see problem list dvt ppx
--- NOTE | 2019-01-22 13:48 | CONSULT ---
Consult Consult Specialty:: Vascular Surgery Reason for Consultation:: 2nd opinion - History of Present Illness History of Present Illness: 58 year old man with recurrent infection of right groin following right femoral endarterectomy with Dacron patch angioplasty in July 2018. He developed an infection in the groin after 1 month and has had several I&D procedures with healing and recurrent infection. He is now admitted with local cellulitis and CT showing superficial abscess and periarterial inflammation. He has mild chronic pain in the thigh and some numbness in the medial thigh and lateral calf. - Past Medical History Cardio/Vascular: Yes: Hyperlipdemia - Alcohol/Substance Use Hx Alcohol Use: Yes (occassionally) - Smoking History Smoking history: Former smoker Have you smoked in the past 12 months: No Aproximately how many cigarettes per day: 20 If you are a former smoker, when did you quit?: 09/2017 Home Medications - Allergies Allergies/Adverse Reactions: Allergies Allergy/AdvReac Type Severity Reaction Status Date / Time No Known Allergies Allergy Verified 07/13/18 07:31 - Home Medications Home Medications: Ambulatory Orders Tamsulosin HCl [Flomax] 1 cap PO DAILY 01/19/16 Cholecalciferol (Vitamin D3) [Vitamin D3] 1 tab PO DAILY 01/24/17 Cyanocobalamin (Vitamin B-12) [Vitamin B-12] 1 tab PO DAILY 01/24/17 Clopidogrel Bisulfate [Plavix -] 75 mg PO DAILY 08/25/18 Physical Exam Vital Signs: Vital Signs Temperature 98.2 F 01/22/19 09:07 Pulse Rate 65 01/22/19 09:07 Respiratory Rate 18 01/22/19 09:07 Blood Pressure 118/77 01/22/19 09:07 O2 Sat by Pulse Oximetry (%) 98 01/21/19 21:00 Constitutional: Yes: No Distress Gastrointestinal: Yes: Soft Edema: No Peripheral Pulses WNL: No (pedal pulses not palpable) Wound/Incision: Yes: Other (right groin swelling and mild tenderness, small amount of erythema. No pulsatile mass.) Labs: CBC, BMP 01/20/19 07:35 01/21/19 15:05 Imaging - Results Cat Scan: Image Reviewed (CTA reviewed. Right femoral artery 2 cm diameter with local inflammation and subQ abscess.) Problem List - Problems (1) Infection of prosthetic graft Assessment/Plan: The right femoral patch will need to be explanted and extra-anatomic bypass ( obdurator bypass) used to restore flow to the leg in clean tissue planes. Initially, abscess drainage should be done and antibiotics continued until definitive surgery is scheduled. I will discuss with Dr. Falk. I have informed patient of my opinion. Code(s): T85.79XA - INFECT/INFLM REACTION DUE TO OTH INT PROSTH DEV/GRFT, INIT Qualifiers: Encounter type: initial encounter Qualified Code(s): T85.79XA - Infection and inflammatory reaction due to other internal prosthetic devices, implants and grafts, initial encounter
--- NOTE | 2019-01-22 16:30 | PN ---
Progress Note (short form) - Note Progress Note: erythema resolved Vital Signs Period Temp Pulse Resp BP Sys/Singleton Pulse Ox Last 24 Hr 97.5 F-98.7 F 57-65 18-20 105-120/66-77 98 +ulcer on tongue swelling left groin unchanged, erythema resolved CBC, BMP 01/20/19 07:35 01/21/19 15:05 ct scan with abscess right groin a/p abscess right groin/patch infection cellulitis of the thigh-resolved awaiting vascualr surgery plan recurrent oral ulcers since he stopped smoking check hiv viral culture continue vanco/zosyn
[2019-01-22] MEDS: MELATONIN 5 MG TABLETS PO SCH (21:59)
[2019-01-23] MEDS ORDERED: DEXTROSE 5%-WATER - 50 ML IVPB ONE ×3 (00:54→17:00)
[2019-01-23] MEDS ORDERED: PIPERACILLIN/TAZOBACTAM 3.375 GM VIAL IVPB ONE ×3 (00:54→17:00)
[2019-01-23] MEDS: PIPERACILLIN/TAZOB 3.375 GM 3.375 GM in DEXTROSE 5%-WATER - 50 ML IVPB SCH ×3 (01:11→17:08)
[2019-01-23] MEDS: VANCOMYCIN 1 GRAM (PRE-DOCKED) 1,000 MG/250 ML BAG IVPB SCH ×2 (02:08→15:41)
[2019-01-23] MEDS: TAMSULOSIN HCL 0.4 MG CAP PO SCH (07:52)
[2019-01-23] MEDS: PANTOPRAZOLE 40 MG TABLET (FP) PO SCH (09:16)
[2019-01-23] MEDS: ENOXAPARIN NA (PORCINE) 40 MG/0.4 ML DISP.SYRIN SQ SCH (09:16)
[2019-01-23] MEDS ORDERED: PROMETHAZINE HCL 25 MG/1 ML VIAL IVPUSH PRN ×2 (14:09→18:27)
[2019-01-23] MEDS ORDERED: ONDANSETRON 4 MG/2 ML VIAL IVPUSH PRN ×2 (14:09→18:27)
[2019-01-23] MEDS ORDERED: LACTATED RINGERS SOLUTION 1,000 ML IV SCH (14:15)
--- NOTE | 2019-01-23 14:44 | PN ---
Progress Note, Physician Chief Complaint: RLE Cellulitis History of Present Illness: Previous notes and events reviewed awake and alert NAD afebrile no leukocytosis BC neg patient scheduled for ID of R groin abscess with Vascular - Current Medication List Current Medications: Active Medications Acetaminophen (Tylenol -) 650 mg PO Q4H PRN PRN Reason: FEVER Benzocaine (Anbesol -) 1 applic MM Q6H PRN PRN Reason: ORAL PAIN/MOUTH SORES Last Admin: 01/21/19 21:47 Dose: 1 applic Enoxaparin Sodium (Lovenox -) 40 mg SQ DAILY [facility] Last Admin: 01/23/19 09:16 Dose: 40 mg Fentanyl (Sublimaze Injection -) 50 mcg IVPUSH [id number] PRN PRN Reason: PAIN-PACU ORDER X 4 DOSES ONLY Vancomycin HCl (Vancomycin (Pre-Docked)) 1,000 mg in 250 mls @ 166.667 mls/hr IVPB BID@0300,1500 [facility]; Protocol Last Admin: 01/23/19 02:08 Dose: 166.667 mls/hr Piperacillin Sod/Tazobactam (Sod 3.375 gm/ Dextrose) 50 mls @ 100 mls/hr IVPB Q8H-IV [facility]; Protocol Last Admin: 01/23/19 09:16 Dose: 100 mls/hr Lactated Ringer's (Lactated Ringers Solution) 1,000 mls @ 125 mls/hr IV [facility] Melatonin (Melatonin) 5 mg PO HS [facility] Last Admin: 01/22/19 21:59 Dose: 5 mg Ondansetron HCl (Zofran Injection) 4 mg IVPUSH Q6H PRN PRN Reason: NAUSEA AND/OR VOMITING Pantoprazole Sodium (Protonix -) 40 mg PO DAILY [facility] Last Admin: 01/23/19 09:16 Dose: 40 mg Promethazine HCl (Phenergan Injection -) 12.5 mg IVPUSH Q6H PRN PRN Reason: NAUSEA-FOR RESCUE AFTER 15 MIN Tamsulosin HCl (Flomax -) 0.4 mg PO DAILY@0800 [facility] Last Admin: 01/23/19 07:52 Dose: 0.4 mg - Objective Vital Signs: Vital Signs Temperature 97.6 F 01/23/19 13:58 Pulse Rate 76 01/23/19 13:58 Respiratory Rate 20 01/23/19 13:58 Blood Pressure 120/78 01/23/19 13:58 O2 Sat by Pulse Oximetry (%) 98 01/23/19 09:00 Constitutional: Yes: No Distress, Calm Eyes: Yes: Conjunctiva Clear HENT: Yes: Atraumatic Cardiovascular: Yes: Regular Rate and Rhythm Respiratory: Yes: Regular, CTA Bilaterally Gastrointestinal: Yes: Normal Bowel Sounds, Soft Musculoskeletal: Yes: WNL Extremities: Yes: WNL Edema: No Neurological: Yes: Alert, Oriented Psychiatric: Yes: Alert, Oriented Labs: CBC, BMP 01/20/19 07:35 01/21/19 15:05 INR, PTT INR 1.05 (0.83-1.09) 01/20/19 07:35 Microbiology 01/19/19 15:00 Blood - Peripheral Venous Blood Culture - Preliminary NO GROWTH OBTAINED AFTER 72 HOURS, INCUBATION TO CONTINUE FOR 2 DAYS. 01/19/19 15:00 Blood - Peripheral Venous Blood Culture - Preliminary NO GROWTH OBTAINED AFTER 72 HOURS, INCUBATION TO CONTINUE FOR 2 DAYS. Problem List - Problems (1) Cellulitis Assessment/Plan: -ID on board -afebrile -no leukocytosis -Vancomycin, Zosyn -BC neg -Lower Extremity MRI shows subcutaneous rim-enhancing fluid collection noted ventrally along right upper thigh suspicious of abscess formation, mild focal nonspecific urinary bladder wall thickening Code(s): L03.90 - CELLULITIS, UNSPECIFIED Qualifiers: Site of cellulitis of extremity: lower extremity (2) Peripheral arterial disease Assessment/Plan: -Vascular on board Code(s): I73.9 - PERIPHERAL VASCULAR DISEASE, UNSPECIFIED (3) Abscess of right groin Assessment/Plan: -Vascular on board -will have I&D at 6pm -EKG on admission reviewed, CXR unremarkable -patient is cleared for I&D -Lower Extremity MRI shows subcutaneous rim-enhancing fluid collection noted ventrally along right upper thigh suspicious of abscess formation Code(s): L02.214 - CUTANEOUS ABSCESS OF GROIN Assessment/Plan see problem list dvt ppx
[2019-01-23] MEDS ORDERED: MIDAZOLAM HCL 2 MG/2 ML SINGLE DOSE VIAL ONE (16:49)
[2019-01-23] MEDS ORDERED: PROPOFOL 20 ML ONE (16:49)
[2019-01-23] MEDS ORDERED: LIDOCAINE HCL 1%, 10 MG/ML (20ML VIAL) ONE ×2 (17:47→18:09)
[2019-01-23] MEDS ORDERED: LIDOCAINE HCL 1%, 10 MG/ML (20ML VIAL) INF ONE (18:07)
--- NOTE | 2019-01-23 18:22 | OP ---
Operative Note - Note: Operative Date: 01/23/19 Pre-Operative Diagnosis: Right groin abscess Operation: Incision and drainage right groin abscess Findings: Thick brown pus in right groin abscess cavity. Post-Operative Diagnosis: Same as Pre-op Surgeon: Mateo De La Torre Anesthesiologist/LINING FINISHER: Nitish Spence Anesthesia: Fractional
[2019-01-23] MEDS ORDERED: ACETAMINOPHEN 325 MG TABLET (FP) PO PRN ×2 (18:27→18:39)
[2019-01-23] MEDS ORDERED: BENZOCAINE 20 % GEL TUBE MM PRN (18:27)
[2019-01-23] MEDS ORDERED: oxyCODONE HCL 5 MG TABLET PO PRN (18:39)
[2019-01-23] MEDS: MELATONIN 5 MG TABLETS PO SCH (22:13)
[2019-01-24] MEDS: LACTATED RINGERS SOLUTION 1,000 ML IV SCH ×2 (00:13→22:37)
[2019-01-24] MEDS ORDERED: DEXTROSE 5%-WATER - 50 ML IVPB ONE ×3 (01:42→18:03)
[2019-01-24] MEDS ORDERED: PIPERACILLIN/TAZOBACTAM 3.375 GM VIAL IVPB ONE ×3 (01:42→18:03)
[2019-01-24] MEDS: PIPERACILLIN/TAZOB 3.375 GM 3.375 GM in DEXTROSE 5%-WATER - 50 ML IVPB SCH ×3 (01:50→18:05)
[2019-01-24] MEDS: VANCOMYCIN 1 GRAM (PRE-DOCKED) 1,000 MG/250 ML BAG IVPB SCH ×2 (04:04→15:32)
[2019-01-24] MEDS: TAMSULOSIN HCL 0.4 MG CAP PO SCH (08:12)
--- NOTE | 2019-01-24 08:24 | PN ---
Progress Note (short form) - Note Progress Note: Surgery POD #1 incision and drainage right groin abscess patient seen and examined at the bedside with no complaints. The patient states his pain is controlled and he denies any overnight issues. He is tolerating his diet and denies any CP, SOB , N/V, Fever or chills. Vital Signs Temp 97.7 F 01/24/19 06:00 Pulse 52 L 01/24/19 06:00 Resp 20 01/24/19 06:00 BP 94/54 L 01/24/19 06:00 Pulse Ox 95 01/23/19 21:00 Intake & Output 01/23/19 01/23/19 01/24/19 11:59 23:59 11:59 Intake Total 650 2000 1850 Output Total 200 Balance 650 1800 1850 Intake: IV 650 1850 Lactated Ringers Solution 350 1,000 ml @ 125 mls/hr IV [facility] Rx#: [id number] Lactated Ringers Solution 1500 1,000 ml @ 125 mls/hr IV [facility] Rx#: [id number] saline lock 350 IVPB 300 350 Oral 350 1000 Output: Urine 200 Void 200 Other: Voiding Method Toilet Urinal Bowel Movement No No # Bowel Movements 1 CBC, BMP 01/24/19 08:10 01/24/19 08:10 PE: A&Ox3, NAD unlabored resp on RA right groin/ thigh, incision c/d/i with packing seen in the wound, no evidence of active bleeding, or discharge. thigh soft and supple with mild ttp appropriate to status. B/L LE compartments soft, supple and non-tender with +2 DP pulses. Problem List - Problems (1) Abscess of right groin Assessment/Plan: POD #1 groin I&D doing well. -Continue IV ABX -daily dressing changes TID as ordered with iodoform. -trend labs -OOB as tolerated -Encourage IS -VNS -D/c planning for home with VNS -F/U with Dr De La Torre next week. Code(s): L02.214 - CUTANEOUS ABSCESS OF GROIN
[2019-01-24 09:15] LABS: HEMATOCRIT 35.3 % (35.4-49); HEMOGLOBIN 11.8 GM/dL (11.7-16.9); MCH 32.7 pg (25.7-33.7); MCHC 33.3 g/dl (32.0-35.9); MEAN CELL VOLUME 98.3 fl (80-96); MEAN PLT VOLUME 7.1 fl (7.5-11.1); PLATELET COUNT 386 K/MM3 (134-434); RDW 13.7 % (11.9-15.9); WHITE BLOOD COUNT 5.3 K/mm3 (4.0-10.0)
[2019-01-24] MEDS: PANTOPRAZOLE 40 MG TABLET (FP) PO SCH (09:42)
[2019-01-24] MEDS: ENOXAPARIN NA (PORCINE) 40 MG/0.4 ML DISP.SYRIN SQ SCH (09:42)
[2019-01-24 09:50] LABS: ALBUMIN 2.9 g/dl (3.4-5.0); BILIRUBIN,TOTAL 0.3 mg/dL (0.2-1); BLOOD UREA NITROGEN 10.5 mg/dL (7-18); CALCIUM 8.2 mg/dL (8.5-10.1); CREATININE 0.8 mg/dL (0.55-1.3); POTASSIUM 4.5 mmol/L (3.5-5.1); TOT PROT 6.2 g/dl (6.4-8.2)
--- NOTE | 2019-01-24 10:26 | PN ---
Progress Note, Physician Chief Complaint: RLE Cellulitis History of Present Illness: Previous notes and events reviewed awake and alert NAD afebrile no leukocytosis BC neg s/p I&D R groin wound culture pending complain of Ulcer on tongue - Current Medication List Current Medications: Active Medications Acetaminophen (Tylenol -) 650 mg PO Q4H PRN PRN Reason: FEVER Acetaminophen (Tylenol -) 325 mg PO Q4H PRN PRN Reason: PAIN LEVEL 1-5 Stop: 01/26/19 18:38 Benzocaine (Anbesol -) 1 applic MM Q6H PRN PRN Reason: ORAL PAIN/MOUTH SORES Enoxaparin Sodium (Lovenox -) 40 mg SQ DAILY [facility] Last Admin: 01/24/19 09:42 Dose: 40 mg Lactated Ringer's (Lactated Ringers Solution) 1,000 mls @ 125 mls/hr IV ASDIR [facility] Last Admin: 01/24/19 00:13 Dose: 125 mls/hr Vancomycin HCl (Vancomycin (Pre-Docked)) 1,000 mg in 250 mls @ 166.667 mls/hr IVPB BID@0300,1500 [facility]; Protocol Last Admin: 01/24/19 04:04 Dose: 166.667 mls/hr Piperacillin Sod/Tazobactam (Sod 3.375 gm/ Dextrose) 50 mls @ 100 mls/hr IVPB Q8H-IV [facility]; Protocol Last Admin: 01/24/19 09:42 Dose: 100 mls/hr Melatonin (Melatonin) 5 mg PO HS [facility] Last Admin: 01/23/19 22:13 Dose: 5 mg Oxycodone HCl (Roxicodone -) 5 mg PO Q4H PRN PRN Reason: PAIN LEVEL 1-5 Pantoprazole Sodium (Protonix -) 40 mg PO DAILY [facility] Last Admin: 01/24/19 09:42 Dose: 40 mg Tamsulosin HCl (Flomax -) 0.4 mg PO DAILY@0800 [facility] Last Admin: 01/24/19 08:12 Dose: 0.4 mg - Objective Vital Signs: Vital Signs Temperature 97.7 F 01/24/19 06:00 Pulse Rate 52 L 01/24/19 06:00 Respiratory Rate 20 01/24/19 06:00 Blood Pressure 94/54 L 01/24/19 06:00 O2 Sat by Pulse Oximetry (%) 95 01/23/19 21:00 Constitutional: Yes: No Distress, Calm Eyes: Yes: Conjunctiva Clear HENT: Yes: Atraumatic Cardiovascular: Yes: Regular Rate and Rhythm Respiratory: Yes: Regular, CTA Bilaterally Musculoskeletal: Yes: WNL Extremities: Yes: WNL Edema: No Wound/Incision: Yes: Dressing Dry and Intact Neurological: Yes: Alert, Oriented Psychiatric: Yes: Alert, Oriented Labs: CBC, BMP 01/24/19 08:10 01/24/19 08:10 INR, PTT INR 1.05 (0.83-1.09) 01/20/19 07:35 Problem List - Problems (1) Cellulitis Assessment/Plan: -ID on board -afebrile -no leukocytosis -Vancomycin, Zosyn -BC neg -Lower Extremity MRI shows subcutaneous rim-enhancing fluid collection noted ventrally along right upper thigh suspicious of abscess formation, mild focal nonspecific urinary bladder wall thickening -POD #1 I&D R groin -wound culture pending -daily dressing changes Code(s): L03.90 - CELLULITIS, UNSPECIFIED Qualifiers: Site of cellulitis of extremity: lower extremity (2) Peripheral arterial disease Assessment/Plan: -Vascular on board Code(s): I73.9 - PERIPHERAL VASCULAR DISEASE, UNSPECIFIED (3) Abscess of right groin Assessment/Plan: -Vascular on board -Lower Extremity MRI shows subcutaneous rim-enhancing fluid collection noted ventrally along right upper thigh suspicious of abscess formation -POD #1 I&D R groin -wound culture pending -daily dressing changes -Vancomycin and Zosyn -ID on board Code(s): L02.214 - CUTANEOUS ABSCESS OF GROIN (4) Canker sores oral Assessment/Plan: -viral culture pending -ID on board Code(s): K12.0 - RECURRENT ORAL APHTHAE Assessment/Plan see problem list dvt ppx
--- NOTE | 2019-01-24 13:49 | PN ---
Progress Note (short form) - Note Progress Note: s/p abscess drainage yesterday Vital Signs Period Temp Pulse Resp BP Sys/Singleton Pulse Ox Last 24 Hr 97.5 F-98.5 F 47-83 12-20 92-122/54-78 76-100 cor-rrr lungs clear abd soft,nt ext dressing intact right groin CBC, BMP 01/24/19 08:10 01/24/19 08:10 Microbiology 01/22/19 16:30 Ulcer Viral Culture - Preliminary 01/19/19 15:00 Blood - Peripheral Venous Blood Culture - Preliminary NO GROWTH OBTAINED AFTER 96 HOURS, INCUBATION TO CONTINUE FOR 1 DAYS. 01/19/19 15:00 Blood - Peripheral Venous Blood Culture - Preliminary NO GROWTH OBTAINED AFTER 96 HOURS, INCUBATION TO CONTINUE FOR 1 DAYS. abscess culture pending a/p abscess right groin/patch infection-s/p drainage of the abscess f/u cultures cellulitis of the thigh-resolved recurrent oral ulcers since he stopped smoking check hiv-negative viral culture pending continue vanco/zosyn
[2019-01-24] MEDS: MELATONIN 5 MG TABLETS PO SCH (22:42)
[2019-01-25] MEDS ORDERED: PIPERACILLIN/TAZOBACTAM 3.375 GM VIAL IVPB ONE ×3 (01:34→17:41)
[2019-01-25] MEDS ORDERED: DEXTROSE 5%-WATER - 50 ML IVPB ONE ×3 (01:34→17:41)
[2019-01-25] MEDS: PIPERACILLIN/TAZOB 3.375 GM 3.375 GM in DEXTROSE 5%-WATER - 50 ML IVPB SCH ×3 (01:45→17:45)
[2019-01-25] MEDS: VANCOMYCIN 1 GRAM (PRE-DOCKED) 1,000 MG/250 ML BAG IVPB SCH ×2 (03:24→16:00)
[2019-01-25] MEDS: TAMSULOSIN HCL 0.4 MG CAP PO SCH (08:04)
--- NOTE | 2019-01-25 08:35 | PN ---
Progress Note (short form) - Note Progress Note: Afeb Packing changed by PA, no drainage Culture pending Imp: Recurrent abscess right groin with prosthetic arterial patch on femoral artery. Plan: Continue antibiotics, ID to decide on outpatient regimen Will schedule elective surgery to remove patch and place extraanatomic bypass. Problem List - Problems (1) Infection of prosthetic graft Code(s): T85.79XA - INFECT/INFLM REACTION DUE TO OTH INT PROSTH DEV/GRFT, INIT Qualifiers: Encounter type: initial encounter Qualified Code(s): T85.79XA - Infection and inflammatory reaction due to other internal prosthetic devices, implants and grafts, initial encounter
[2019-01-25] MEDS: ENOXAPARIN NA (PORCINE) 40 MG/0.4 ML DISP.SYRIN SQ SCH (09:38)
[2019-01-25] MEDS: PANTOPRAZOLE 40 MG TABLET (FP) PO SCH (09:38)
--- NOTE | 2019-01-25 09:40 | PN ---
Progress Note (short form) - Note Progress Note: Surgery POD #2 incision and drainage right groin abscess patient seen and examined at the bedside with no complaints. The patient states his pain is controlled and he denies any overnight issues. He is tolerating his diet and denies any CP, SOB , N/V, Fever or chills. Vital Signs Temp 97.8 F 01/25/19 06:00 Pulse 91 H 01/25/19 06:00 Resp 20 01/25/19 06:00 BP 125/66 01/25/19 06:00 Pulse Ox 96 01/24/19 21:00 Intake & Output 01/24/19 01/24/19 01/25/19 11:59 23:59 11:59 Intake Total 2080 2130 1500 Balance 2080 2130 1500 Intake: IV 1850 1250 1500 Lactated Ringers Solution 1500 1250 1500 1,000 ml @ 125 mls/hr IV ASDIR SEJAL Rx#: [id number] saline lock 350 IVPB 350 Oral 230 530 Other: Voiding Method Toilet Urinal # Unmeasured Voids Void 1 1 Bowel Movement No CBC, BMP 01/24/19 08:10 01/24/19 08:10 PE: A&Ox3, NAD unlabored resp on RA right groin/ thigh, wound-packing removed with beefy clean base, no active bleeding or d/c, no foul odor. thigh soft and supple with mild ttp appropriate to status. B/L LE compartments soft, supple and non-tender, feet warm and well perfused. Problem List - Problems (1) Abscess of right groin Assessment/Plan: POD #2 groin I&D doing well. -Continue IV ABX- ID to recs appreciated for out patient abx -daily packing changed QOD as ordered with iodoform. -trend labs -OOB as tolerated -Encourage IS -VNS -D/c planning for home with VNS -F/U with Dr De La Torre next week. Code(s): L02.214 - CUTANEOUS ABSCESS OF GROIN
[2019-01-25 10:18] LABS: HEMOGLOBIN 11.3 GM/dL (11.7-16.9); MCH 32.6 pg (25.7-33.7); MCHC 33.4 g/dl (32.0-35.9); MEAN CELL VOLUME 97.6 fl (80-96); MEAN PLT VOLUME 7.1 fl (7.5-11.1); PLATELET COUNT 414 K/MM3 (134-434); RBC 3.48 M/mm3 (4.00-5.60); RDW 13.3 % (11.9-15.9); WHITE BLOOD COUNT 4.3 K/mm3 (4.0-10.0)
--- NOTE | 2019-01-25 10:47 | PN ---
Progress Note, Physician Chief Complaint: RLE Cellulitis History of Present Illness: Previous notes and events reviewed awake and alert NAD afebrile no leukocytosis BC neg POD #2 I&D R groin wound culture pending - Current Medication List Current Medications: Active Medications Acetaminophen (Tylenol -) 650 mg PO Q4H PRN PRN Reason: FEVER Acetaminophen (Tylenol -) 325 mg PO Q4H PRN PRN Reason: PAIN LEVEL 1-5 Stop: 01/26/19 18:38 Benzocaine (Anbesol -) 1 applic MM Q6H PRN PRN Reason: ORAL PAIN/MOUTH SORES Enoxaparin Sodium (Lovenox -) 40 mg SQ DAILY PENDING SALE TO [facility] Last Admin: 01/25/19 09:38 Dose: 40 mg Lactated Ringer's (Lactated Ringers Solution) 1,000 mls @ 125 mls/hr IV ASDIR PENDING SALE TO [facility] Last Admin: 01/24/19 22:37 Dose: 125 mls/hr Vancomycin HCl (Vancomycin (Pre-Docked)) 1,000 mg in 250 mls @ 166.667 mls/hr IVPB BID@0300,1500 PENDING SALE TO [facility]; Protocol Last Admin: 01/25/19 03:24 Dose: 166.667 mls/hr Piperacillin Sod/Tazobactam (Sod 3.375 gm/ Dextrose) 50 mls @ 100 mls/hr IVPB Q8H-IV SEJAL; Protocol Last Admin: 01/25/19 09:38 Dose: 100 mls/hr Melatonin (Melatonin) 5 mg PO HS PENDING SALE TO [facility] Last Admin: 01/24/19 22:42 Dose: 5 mg Oxycodone HCl (Roxicodone -) 5 mg PO Q4H PRN PRN Reason: PAIN LEVEL 1-5 Pantoprazole Sodium (Protonix -) 40 mg PO DAILY PENDING SALE TO [facility] Last Admin: 01/25/19 09:38 Dose: 40 mg Tamsulosin HCl (Flomax -) 0.4 mg PO DAILY@0800 PENDING SALE TO [facility] Last Admin: 01/25/19 08:04 Dose: 0.4 mg - Objective Vital Signs: Vital Signs Temperature 97.5 F L 01/25/19 10:00 Pulse Rate 63 01/25/19 10:00 Respiratory Rate 20 01/25/19 10:00 Blood Pressure 105/63 01/25/19 10:00 O2 Sat by Pulse Oximetry (%) 96 11/20/19 21:00 Constitutional: Yes: No Distress, Calm Eyes: Yes: Conjunctiva Clear HENT: Yes: Atraumatic Cardiovascular: Yes: Regular Rate and Rhythm Respiratory: Yes: Regular, CTA Bilaterally Gastrointestinal: Yes: Normal Bowel Sounds, Soft Musculoskeletal: Yes: WNL Extremities: Yes: WNL Edema: No Wound/Incision: Yes: Dressing Dry and Intact Neurological: Yes: Alert, Oriented Psychiatric: Yes: Alert, Oriented Labs: CBC, BMP 01/25/19 09:30 INR, PTT INR 1.05 (0.83-1.09) 01/20/19 07:35 Problem List - Problems (1) Cellulitis Assessment/Plan: -ID on board -afebrile -no leukocytosis -Vancomycin, Zosyn -BC neg -Lower Extremity MRI shows subcutaneous rim-enhancing fluid collection noted ventrally along right upper thigh suspicious of abscess formation, mild focal nonspecific urinary bladder wall thickening -POD #2 I&D R groin -wound culture pending -daily dressing changes Code(s): L03.90 - CELLULITIS, UNSPECIFIED Qualifiers: Site of cellulitis of extremity: lower extremity (2) Peripheral arterial disease Assessment/Plan: -Vascular on board Code(s): I73.9 - PERIPHERAL VASCULAR DISEASE, UNSPECIFIED (3) Abscess of right groin Assessment/Plan: -Vascular on board -Lower Extremity MRI shows subcutaneous rim-enhancing fluid collection noted ventrally along right upper thigh suspicious of abscess formation -POD #2 I&D R groin -wound culture pending -daily dressing changes -Vancomycin and Zosyn -ID on board Code(s): L02.214 - CUTANEOUS ABSCESS OF GROIN (4) Canker sores oral Assessment/Plan: -viral culture pending -ID on board Code(s): K12.0 - RECURRENT ORAL APHTHAE Assessment/Plan see problem list dvt ppx
[2019-01-25 10:49] LABS: BILIRUBIN,TOTAL 1.1 mg/dL (0.2-1); BLOOD UREA NITROGEN 10.8 mg/dL (7-18); CALCIUM 8.3 mg/dL (8.5-10.1); CREATININE 0.8 mg/dL (0.55-1.3); POTASSIUM 4.2 mmol/L (3.5-5.1); TOT PROT 6.2 g/dl (6.4-8.2)
--- NOTE | 2019-01-25 18:05 | PN ---
Progress Note (short form) - Note Progress Note: s/p abscess drainage Tuesday Vital Signs Period Temp Pulse Resp BP Sys/Singleton Pulse Ox Last 24 Hr 97.5 F-97.8 F 63-91 20-20 105-125/63-68 96 cor-rrr lungs clear dressing change by surgery CBC, BMP 01/25/19 09:30 01/25/19 06:00 Laboratory Tests 01/20/19 01/20/19 01/23/19 07:35 07:35 07:40 ESR 82 H C-Reactive Protein 7.8 H 1.9 H 01/23/19 07:40 ESR 73 H C-Reactive Protein Microbiology 01/23/19 18:11 Groin - Right Gram Stain - Final 01/23/19 18:11 Groin - Right Wound Culture - Preliminary NO GROWTH OBTAINED AFTER 24 HOURS INCUBATION, REINCUBATED. 01/19/19 15:00 Blood - Peripheral Venous Blood Culture - Final NO GROWTH AFTER 5 DAYS INCUBATION 01/19/19 15:00 Blood - Peripheral Venous Blood Culture - Final NO GROWTH AFTER 5 DAYS INCUBATION 01/22/19 16:30 Ulcer Viral Culture - Preliminary a/p abscess right groin/patch infection-s/p drainage of the abscess f/u cultures cellulitis of the thigh-resolved recurrent oral ulcers since he stopped smoking check hiv-negative viral culture pending suspect culture will be sterile due to pretreatment with antibiotics logically this would be group b strep would plan discharge home with picc line and iv rocephin pending bypass surgery by dr diop esr/crp in am
[2019-01-25] MEDS: MELATONIN 5 MG TABLETS PO SCH (21:47)
[2019-01-26] MEDS ORDERED: PIPERACILLIN/TAZOBACTAM 3.375 GM VIAL IVPB ONE (00:47)
[2019-01-26] MEDS ORDERED: DEXTROSE 5%-WATER - 50 ML IVPB ONE (00:47)
[2019-01-26] MEDS: PIPERACILLIN/TAZOB 3.375 GM 3.375 GM in DEXTROSE 5%-WATER - 50 ML IVPB SCH ×2 (01:06→12:11)
[2019-01-26] MEDS: VANCOMYCIN 1 GRAM (PRE-DOCKED) 1,000 MG/250 ML BAG IVPB SCH (02:22)
[2019-01-26 09:04] LABS: HEMOGLOBIN 12.5 GM/dL (11.7-16.9); MCHC 33.9 g/dl (32.0-35.9); MEAN CELL VOLUME 97.4 fl (80-96); MEAN PLT VOLUME 7.1 fl (7.5-11.1); PLATELET COUNT 481 K/MM3 (134-434); RDW 13.5 % (11.9-15.9)
[2019-01-26 09:21] LABS: ALBUMIN 3.3 g/dl (3.4-5.0); BILIRUBIN,TOTAL 0.3 mg/dL (0.2-1); BLOOD UREA NITROGEN 10.1 mg/dL (7-18); CALCIUM 8.7 mg/dL (8.5-10.1); CREATININE 0.9 mg/dL (0.55-1.3); POTASSIUM 4.7 mmol/L (3.5-5.1); TOT PROT 6.9 g/dl (6.4-8.2)
[2019-01-26] MEDS ORDERED: WATER IVPB ONE (11:00)
[2019-01-26] MEDS ORDERED: CEFTRIAXONE IVPB ONE (11:00)
[2019-01-26] MEDS ORDERED: CEFTRIAXONE 2 GM in DEXTROSE 5%-WATER 100 ML IVPB ONE (11:00)
[2019-01-26] MEDS ORDERED: DEXTROSE 5% IVPB ONE (11:00)
--- NOTE | 2019-01-26 11:24 | DS ---
Physical Examination Vital Signs: Vital Signs Temperature 98.6 F 01/25/19 22:43 Pulse Rate 55 L 01/25/19 22:43 Respiratory Rate 20 01/25/19 22:43 Blood Pressure 122/69 01/25/19 22:43 O2 Sat by Pulse Oximetry (%) 96 01/24/19 21:00 Findings/Remarks: Laboratory Results - last 24 hr 01/26/19 01/26/19 07:40 07:40 WBC 9.0 RBC 3.80 L Hgb 12.5 Hct 37.0 MCV 97.4 H MCH 33.0 MCHC 33.9 RDW 13.5 Plt Count 481 H MPV 7.1 L Sodium 137 Potassium 4.7 Chloride 107 Carbon Dioxide 23 Anion Gap 7 L BUN 10.1 Creatinine 0.9 Est GFR (CKD-EPI)AfAm 107.97 Est GFR (CKD-EPI)NonAf 93.16 Random Glucose 82 Calcium 8.7 Total Bilirubin 0.3 AST 9 L ALT 24 Alkaline Phosphatase 54 C-Reactive Protein 1.4 H Total Protein 6.9 Albumin 3.3 L Home Medication List Medication Instructions Recorded Confirmed Type Tamsulosin HCl [Flomax] 1 cap PO DAILY 01/19/16 01/19/19 History Cholecalciferol (Vitamin D3) 1 tab PO DAILY 01/24/17 01/19/19 History [Vitamin D3] Cyanocobalamin (Vitamin B-12) 1 tab PO DAILY 01/24/17 01/19/19 History [Vitamin B-12] Clopidogrel Bisulfate [Plavix -] 75 mg PO DAILY 08/25/18 01/19/19 History Active Medications Generic Name Dose Route Start Last Admin Trade Name Maria Victoria PRN Reason Stop Dose Admin Acetaminophen 650 mg 01/23/19 18:27 Tylenol - PO Q4H PRN FEVER Acetaminophen 325 mg 01/23/19 18:39 Tylenol - PO 01/26/19 18:38 Q4H PRN PAIN LEVEL 1-5 Benzocaine 1 applic 01/23/19 18:27 Anbesol - MM Q6H PRN ORAL PAIN/MOUTH SORES Enoxaparin Sodium 40 mg 01/24/19 10:00 01/25/19 09:38 Lovenox - SQ 40 mg DAILY SEJAL Administration Ceftriaxone Sodium 2 gm/ 100 mls @ 100 mls/hr 01/26/19 11:00 Dextrose IVPB 01/26/19 11:59 ONCE ONE Melatonin 5 mg 01/23/19 22:00 01/25/19 21:47 Melatonin PO 5 mg HS SEJAL Administration Oxycodone HCl 5 mg 01/23/19 18:39 Roxicodone - PO Q4H PRN PAIN LEVEL 1-5 Pantoprazole Sodium 40 mg 01/24/19 10:00 01/25/19 09:38 Protonix - PO 40 mg DAILY SEJAL Administration Tamsulosin HCl 0.4 mg 01/24/19 08:00 01/25/19 08:04 Flomax - PO 0.4 mg DAILY@0800 SEJAL Administration Microbiology 01/23/19 18:11 Groin - Right Gram Stain - Final 01/23/19 18:11 Groin - Right Wound Culture - Final NO GROWTH OF AEROBIC ORGANISMS AFTER 48 HOURS INCUBATION 01/19/19 15:00 Blood - Peripheral Venous Blood Culture - Final NO GROWTH AFTER 5 DAYS INCUBATION 01/19/19 15:00 Blood - Peripheral Venous Blood Culture - Final NO GROWTH AFTER 5 DAYS INCUBATION 01/22/19 16:30 Ulcer Viral Culture - Preliminary Constitutional: Yes: No Distress, Calm Eyes: Yes: Conjunctiva Clear HENT: Yes: Atraumatic Cardiovascular: Yes: Regular Rate and Rhythm Respiratory: Yes: Regular, CTA Bilaterally Gastrointestinal: Yes: Normal Bowel Sounds, Soft Musculoskeletal: Yes: WNL Extremities: Yes: WNL Edema: No Wound/Incision: Yes: Dressing Dry and Intact Neurological: Yes: Alert, Oriented Psychiatric: Yes: Alert, Oriented Labs: CBC, BMP 01/26/19 07:40 01/26/19 07:40 Discharge Summary Problems reviewed: Yes Reason For Visit: CELLULITIS Current Active Problems Abscess of right groin (Acute) Canker sores oral (Acute) Cellulitis (Acute) Infection of prosthetic graft (Acute) Hospital Course: 58 yr old male with h/o PAD came in with right groin brizuela and redness started 5 days ago he went to his PMD who told him to come to ER but patient refused and was given po abx, patient then had a fever upt o 101 on the following two days, and today he came to the ER patient had area marked by pmd with pen and today the area of redness has spread. Patient was evaluated by ID and started on IV antibiotics. Vascular consulted and followed patient. Had I&D done for R groin abscess. Will be discharged home with VNS service for wound care and dressing change and will receive IV antibiotics via PICC line. WIll have close follow up with vascular as outpatient. Condition: Good - Instructions Diet, Activity, Other Instructions: VNS for wound care. Iodoform packing three times per week to right groin. Follow-up with Dr. De La Torre in 1 week after hospital discharge for wound check and continued vascular care. Follow up with PMD in 1 week of discharge [facility] initiated for wound care and dressing change to right groin PICC line placed patient will have nursing home antibiotics Rocephin 2g IVPB for approximately 4 weeks, antibiotics through [place] Follow up with Infectious Disease Dr Turner continue with medication as prescribed return to ER if develop severe pain, respiratory distress, chest pain, fever, foul smell or increase drainage from wound Referrals: Chandler Turner MD [Staff Physician] - Mateo De La Torre MD [Staff Physician] - Disposition: VNS/HOME HEALTH CARE - Home Medications Comprehensive Discharge Medication List: Ambulatory Orders Tamsulosin HCl [Flomax] 1 cap PO DAILY 01/19/16 Cholecalciferol (Vitamin D3) [Vitamin D3] 1 tab PO DAILY 01/24/17 Cyanocobalamin (Vitamin B-12) [Vitamin B-12] 1 tab PO DAILY 01/24/17 Clopidogrel Bisulfate [Plavix -] 75 mg PO DAILY 08/25/18 Acetaminophen [Tylenol .Regular Strength -] 650 mg PO Q4H PRN #0 tablet Benzocaine Oral Gel [Anbesol -] 1 applic MM Q6H PRN #1 tube 01/26/19 Melatonin 5 mg PO HS #30 tab 01/26/19 Pantoprazole Sodium [Protonix -] 40 mg PO DAILY #30 tablet.ec 01/26/19 Tamsulosin HCl [Flomax -] 0.4 mg PO DAILY@0800 cap.er.24h 01/26/19
[2019-01-26] MEDS ORDERED: DEXTROSE 5%-WATER 100 ML IVPB ONE (11:39)
[2019-01-26] MEDS: PANTOPRAZOLE 40 MG TABLET (FP) PO SCH (11:57)
[2019-01-26] MEDS: ENOXAPARIN NA (PORCINE) 40 MG/0.4 ML DISP.SYRIN SQ SCH (11:57)
[2019-01-26] MEDS: TAMSULOSIN HCL 0.4 MG CAP PO SCH (11:57)
--- NOTE | 2019-01-26 12:18 | OP ---
DATE OF OPERATION: 01/23/2019 SURGEON: Mateo Holly MD PROCEDURE: Incision and drainage of right groin abscess. PREOPERATIVE DIAGNOSIS: Right groin abscess. POSTOPERATIVE DIAGNOSIS: Right groin abscess. ANESTHESIA: Fractional. ANESTHESIOLOGIST: Nitish Spence MD OPERATIVE FINDINGS: There was a subcutaneous abscess in the right groin inferior to the scar from previous vascular surgery. The abscess measured approximately 4 cm in length and 2 cm in diameter. It contained dark, brown pus under pressure. OPERATIVE PROCEDURE: Following routine patient identification and side and site verification, intravenous sedation was established. The right thigh and groin were prepped with ChloraPrep. Time-out was performed, 1% lidocaine was infiltrated over the abscess, which had been localized with ultrasound preoperatively. A longitudinal incision was made through the length of the abscess and carried through subcutaneous tissues using cautery for hemostasis. The abscess cavity was entered and the contents cultured. They were aspirated. Debridement of the abscess cavity with a curette was performed and then the wound was irrigated with dilute peroxide solution. It was packed with iodoform gauze and covered with ABD pad. Patient was then taken to the recovery room in stable condition. MATEO HOLLY M.D. [id number]
[2019-01-26 12:42] LABS: ERYTHROCYTE SEDIMENTATION RATE 61 mm/hr (0-20)
[2019-01-26 15:41] VITALS: BP 112/61; PULSE 83; TEMP 97.7
--- NOTE | 2019-01-26 16:16 | PN ---
Progress Note (short form) - Note Progress Note: To WHOM IT MAY CONCERN Mr Hermilo Montalvo was admitted from 01/19 to 01/26 at [facility] regards, Eladia Larson MD Problem List - Problems (1) Cellulitis Code(s): L03.90 - CELLULITIS, UNSPECIFIED Qualifiers: Site of cellulitis of extremity: lower extremity
== END 2019-01-26 18:51 | disposition home health service (06) | DRG 580 ==
LOC: JER 13:15 → JERBED 15:13 → J5S 17:05 → J6S 01-22 20:34
PROVIDERS: ADMIT Student in an Organized Health Care Education/Training Program; ATTEND Student in an Organized Health Care Education/Training Program
PROC: 3E10X8Z Irrigation of Skin and Mucous Membranes using Irrigating Substance (ICD-10-PCS; 2019-01-23)
PROC: 0J9N0ZZ Drainage of Right Lower Leg Subcutaneous Tissue and Fascia, Open Approach (ICD-10-PCS; principal; 2019-01-23 18:00)
PROC: 02HV33Z Insertion of Infusion Device into Superior Vena Cava, Percutaneous Approach (ICD-10-PCS; 2019-01-26)
PROC: B518ZZA Fluoroscopy of Superior Vena Cava, Guidance (ICD-10-PCS; 2019-01-26)
DX: L03.115 Cellulitis of right lower limb (principal); L02.214 Cutaneous abscess of groin; E78.00 Pure hypercholesterolemia, unspecified; Z85.51 Personal history of malignant neoplasm of bladder; K12.0 Recurrent oral aphthae; I73.9 Peripheral vascular disease, unspecified
CPT/HCPCS: 36415; 36569; 71045-TC-FY; 73701-TC-RT; 77001-TC-FY; 80048; 80053; 82962; 83735; 84100; 85025; 85027; 85610; 85651; 85730; 86140; 87040; 87070; 87205; 87252; 87389; 93005; 93010; 94760; 99283-25; C1751; G0480

== ENCOUNTER 2019-02-07 09:00 | Inpatient (IN) | payer BC, OTHER ==
[2019-02-20 15:30] VITALS: BMI 24.5
[2019-02-21] MEDS ORDERED: CEFAZOLIN 2 GM in DEXTROSE 5%-WATER - 100 ML IVPB ONE (08:12)
--- NOTE | 2019-02-21 08:15 | HP ---
Admitting History and Physical - Primary Care Physician PCP: Francisca Bloom - Admission Chief Complaint: RLE claudication History of Present Illness: 58 year old man with recurrent infection of right groin following right femoral endarterectomy with Dacron patch angioplasty in July 2018. He developed an infection in the groin after 1 month and has had several I&D procedures with healing and recurrent infection. He has chronic pain in the thigh and some numbness in the medial thigh and lateral calf. Here today for elective surgery to remove patch and place extraanatomic bypass. History Source: Patient Limitations to Obtaining History: No Limitations - Past Medical History Cardiovascular: Yes: Hyperlipdemia Renal/: Yes: Cancer - Past Surgical History Additional Past Surgical History: Bladder tumor removal 2013 - Smoking History Smoking history: Former smoker Have you smoked in the past 12 months: No Aproximately how many cigarettes per day: 20 If you are a former smoker, when did you quit?: 09/2017 - Alcohol/Substance Use Hx Alcohol Use: Yes (SOCIAL) Home Medications - Allergies Allergies/Adverse Reactions: Allergies Allergy/AdvReac Type Severity Reaction Status Date / Time No Known Allergies Allergy Verified 02/21/19 07:21 - Home Medications Home Medications: Ambulatory Orders Cholecalciferol (Vitamin D3) [Vitamin D3] 1 tab PO DAILY 01/24/17 Cyanocobalamin (Vitamin B-12) [Vitamin B-12] 1 tab PO DAILY 01/24/17 Clopidogrel Bisulfate [Plavix -] 75 mg PO DAILY 08/25/18 Pantoprazole Sodium [Protonix -] 40 mg PO DAILY #30 tablet.ec 01/26/19 Tamsulosin HCl [Flomax -] 0.4 mg PO DAILY@0800 cap.er.24h 01/26/19 Benzocaine Oral Gel [Anbesol -] 1 applic MM PRN PRN 02/20/19 Rosuvastatin Calcium [Crestor] 10 mg PO DAILY 02/20/19 Family Medical History Family History: Unremarkable Review of Systems - Review of Systems Constitutional: reports: No Symptoms Eyes: reports: No Symptoms HENT: reports: No Symptoms Neck: reports: No Symptoms Cardiovascular: reports: No Symptoms Respiratory: reports: No Symptoms Gastrointestinal: reports: No Symptoms Genitourinary: reports: No Symptoms Musculoskeletal: reports: No Symptoms, Other (RLE chronic pain secondary to claudication) Integumentary: reports: No Symptoms Endocrine: reports: No Symptoms Hematology/Lymphatic: reports: No Symptoms Psychiatric: reports: No Symptoms Physical Examination Vital Signs: Vital Signs Temperature 97.8 F 02/21/19 07:41 Pulse Rate 67 02/21/19 07:41 Respiratory Rate 16 02/21/19 07:41 Blood Pressure 134/80 02/21/19 07:41 O2 Sat by Pulse Oximetry (%) 94 L 02/21/19 07:40 Constitutional: Yes: Well Nourished, No Distress, Calm Eyes: Yes: WNL, Conjunctiva Clear, EOM Intact HENT: Yes: WNL, Atraumatic, Normocephalic Neck: Yes: WNL, Supple, Trachea Midline Cardiovascular: Yes: WNL, Regular Rate and Rhythm Respiratory: Yes: WNL, Regular, CTA Bilaterally Gastrointestinal: Yes: WNL, Normal Bowel Sounds, Soft Renal/: Yes: WNL Musculoskeletal: Yes: WNL Edema: No Peripheral Pulses: Right Dorsalis Pedis: 0 (not palpable) Integumentary: Yes: WNL Neurological: Yes: WNL, Alert, Oriented ...Motor Strength: WNL Imaging - Results Cat Scan: Report Reviewed Problem List - Problems (1) HLD (hyperlipidemia) Code(s): E78.5 - HYPERLIPIDEMIA, UNSPECIFIED (2) Claudication of right lower extremity Code(s): I73.9 - PERIPHERAL VASCULAR DISEASE, UNSPECIFIED Assessment/Plan OR today for RLE ileofemoral bypass. SCIP IV ABX VTE PPX T&S ordered pRBC on Hold for OR
[2019-02-21] MEDS ORDERED: MIDAZOLAM HCL 2 MG/2 ML SINGLE DOSE VIAL ONE ×4 (08:24)
[2019-02-21] MEDS ORDERED: VANCOMYCIN 1,000 MG VIAL (RESTRICTED TO ID ONLY) IVPB ONE (08:48)
[2019-02-21] MEDS ORDERED: ROCURONIUM BROMIDE 50 MG/5 ML SYRINGE ONE ×4 (09:14→12:14)
[2019-02-21] MEDS ORDERED: BACITRACIN 50,000 UNITS VIAL TP ONE (09:27)
[2019-02-21] MEDS ORDERED: THROMBIN (BOVINE) 5,000 UNIT VIAL TP ONE ×2 (09:42→10:45)
[2019-02-21] MEDS ORDERED: PROPOFOL 20 ML ONE (10:45)
[2019-02-21] MEDS ORDERED: GELATIN, ABSORBABLE 100 EACH SPONGE TP ONE (10:45)
[2019-02-21] MEDS ORDERED: HEPARIN NA (PORCINE) 5,000 UNITS/ML 1ML VIAL ONE (11:52)
[2019-02-21] MEDS ORDERED: NEOSTIGMINE METHYLSULFATE 0.5 MG/ML - 10 ML MDV ONE (12:36)
[2019-02-21] MEDS ORDERED: GLYCOPYRROLATE 0.2 MG/1 ML VIAL ONE (12:37)
[2019-02-21] MEDS ORDERED: POVIDONE-IODINE OINTMENT 10% - 28.4 GM TUBE ONE (12:39)
[2019-02-21] MEDS ORDERED: KETOROLAC TROMETHAMINE 30 MG/1 ML VIAL ONE (12:42)
--- NOTE | 2019-02-21 12:43 | OP ---
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 Resection right femoral artery Findings: Patent right external iliac and above knee popliteal artery Dilated femoral artery ~ 3 cm. Prosthetic patch intact. Deep femoral artery occluded. Implants: 8 mm ringed PTFE Propaten graft Surgeon: Mateo De La Torre Process Area Supervisor: Carter Fay Anesthesiologist/PAIN MANAGEMENT SPECIALIST: Sera Valentin MD Anesthesia: General Specimens Removed: Right femoral artery Estimated Blood Loss (mls): 250
[2019-02-21] MEDS ORDERED: ONDANSETRON 4 MG/2 ML VIAL IVPUSH PRN (13:04)
--- NOTE | 2019-02-21 13:10 | SURG ---
Surgery Sliver Cutter Note Sliver Cutter: Carter Fay PA-C Date of Service: 02/21/19 Diagnosis: Infected femoral artery prosthetic patch Procedure: Iliopopliteal bypass - obdurator bypass. Resection right femoral artery I was present for the entirety of the operative procedure. For further detail, please refer to operative report. Visit type - Case Type Case Type: Scheduled - New patient This patient is new to me today: Yes Date on this admission: 02/21/19
[2019-02-21] MEDS ORDERED: ACETAMINOPHEN 1000 MG/100 ML VIAL (NON FORMULARY) IVPB ONE (13:13)
[2019-02-21] MEDS ORDERED: BENZOCAINE 20 % GEL TUBE MM PRN (13:14)
[2019-02-21] MEDS ORDERED: LACTATED RINGERS SOLUTION 1,000 ML IV SCH (13:15)
[2019-02-21] MEDS ORDERED: ACETAMINOPHEN 325 MG TABLET (FP) PO PRN (13:33)
--- NOTE | 2019-02-21 17:17 | CONSULT ---
Consultation: REQUESTING PROVIDER: Dr Montero CONSULT REQUEST: ICU management HISTORY OF PRESENT ILLNESS: 58 y/o male with PMH of bladder cancer, HLD, re current infection of right groin following right femoral endarterectomy back in July 2018, requiring multiple I and D's of the area. patient states that he had been having numbness in the right thigh as well as the calf on and off . patient is here today for elective iliopopliteal bypass- obturator bypass with resection of the right femoral artery. EBL was 250ml REVIEW OF SYSTEMS: CONSTITUTIONAL: Absent: fever, chills, diaphoresis, generalized weakness, malaise, loss of appetite, weight change HEENT: Absent: rhinorrhea, nasal congestion, throat pain, throat swelling, difficulty swallowing, mouth swelling, ear pain, eye pain, visual changes CARDIOVASCULAR: Absent: chest pain, syncope, palpitations, irregular heart rate, lightheadedness , peripheral edema RESPIRATORY: Absent: cough, shortness of breath, dyspnea with exertion, orthopnea, wheezing, stridor, hemoptysis GASTROINTESTINAL: Absent: abdominal pain, abdominal distension, nausea, vomiting, diarrhea, constipation, melena, hematochezia GENITOURINARY: Present: groin pain Absent: dysuria, frequency, urgency, hesitancy, hematuria, flank pain, genital pain MUSCULOSKELETAL: Absent: myalgia, arthralgia, joint swelling, back pain, neck pain SKIN: Absent: rash, itching, pallor HEMATOLOGIC/IMMUNOLOGIC: Absent: easy bleeding, easy bruising, lymphadenopathy, frequent infections ENDOCRINE: Absent: unexplained weight gain, unexplained weight loss, heat intolerance, cold intolerance NEUROLOGIC: Absent: headache, focal weakness or paresthesias, dizziness, unsteady gait, seizure, mental status changes, bladder or bowel incontinence PSYCHIATRIC: Absent: anxiety, depression, suicidal or homicidal ideation, hallucinations. PHYSICAL EXAMINATION Vital Signs - 24 hr 02/21/19 02/21/19 02/21/19 07:40 07:41 12:53 Temperature 97.8 F 98.0 F Pulse Rate 67 63 Respiratory 16 18 Rate Blood Pressure 134/80 132/74 O2 Sat by Pulse 94 L 100 Oximetry (%) 02/21/19 02/21/19 02/21/19 13:05 13:20 13:35 Temperature Pulse Rate 63 48 L 50 L Respiratory 16 14 14 Rate Blood Pressure 129/69 116/69 119/66 O2 Sat by Pulse 100 100 100 Oximetry (%) 02/21/19 02/21/19 02/21/19 13:50 14:05 14:20 Temperature Pulse Rate 45 L 46 L 45 L Respiratory 14 14 16 Rate Blood Pressure 116/63 104/58 L 109/55 L O2 Sat by Pulse 100 100 99 Oximetry (%) 02/21/19 02/21/19 02/21/19 14:35 14:50 15:20 Temperature Pulse Rate 48 L 49 L 50 L Respiratory 16 14 14 Rate Blood Pressure 98/52 L 99/69 124/75 O2 Sat by Pulse 99 99 99 Oximetry (%) 02/21/19 02/21/19 15:50 16:20 Temperature 98. F Pulse Rate 48 L 45 L Respiratory 16 16 Rate Blood Pressure 99/67 109/78 O2 Sat by Pulse 99 100 Oximetry (%) GENERAL: Awake, alert, and fully oriented, in no acute distress. EYES: PEERLA; EOMI; no scleral icterus . NECK: no JVD; no lymphadenopathy LUNGS: CTA B/L; no rales, rhonchi or wheezing HEART: bradycardic;, s1 s2; no murmurs/rubs or gallops ABDOMEN: Soft, NT/NSD +BS in all 4 quadrants : right groin/upper thigh dressing c/d/i MUSCULOSKELETAL: Normal range of motion at all joints. No bony deformities or tenderness. No CVA tenderness. EXTREMITIES: SCDS in place; warm; well-perfused; no clubbing/cyanosis or edema NEUROLOGICAL: Cranial nerves II-XII intact. Normal speech. Normal gait. PSYCHIATRIC: Cooperative. Good eye contact. Appropriate mood and affect. SKIN: Warm, dry, normal turgor, no rashes or lesions noted. Laboratory Results - last 24 hr 02/21/19 13:50 Blood Type A POSITIVE Antibody Screen Negative Active Medications Generic Name Dose Route Start Last Admin Trade Name Freq PRN Reason Stop Dose Admin Acetaminophen 325 mg 02/21/19 13:33 Tylenol - PO Q6H PRN PAIN LEVEL 6-10 Benzocaine 1 applic 02/21/19 13:14 Anbesol - MM PRN PRN ORAL PAIN/MOUTH SORES Chlorhexidine Gluconate 1 applic 02/21/19 22:00 Hibiclens For Decolonization - TP HS [facility] Cholecalciferol 1,000 unit 02/22/19 10:00 Vitamin D3 - PO DAILY [facility] Clopidogrel Bisulfate 75 mg 02/22/19 10:00 Plavix - PO DAILY [facility] Heparin Sodium (Porcine) 5,000 unit 02/21/19 22:00 Heparin - SQ TID [facility] Lactated Ringer's 1,000 mls @ 75 mls/hr 02/21/19 13:15 Lactated Ringers Solution IV ASDIR [facility] Cefazolin Sodium/Dextrose 2 gm in 50 mls @ 100 mls/hr 02/21/19 17:00 Ancef 2 Gm Premixed Ivpb - IVPB 02/22/19 01:29 Q8H [facility] Morphine Sulfate 4 mg 02/21/19 13:15 Morphine Sulfate IVPUSH Q6H PRN PAIN LEVEL 1-5 Mupirocin 1 applic 02/21/19 22:00 Bactroban Ointment (For Decolonization) - NS 02/26/19 21:59 BID [facility] Non-Formulary Medication 1 tab 02/22/19 10:00 Cyanocobalamin (Vitamin B-12) [Vitamin B-12] PO DAILY [facility] Ondansetron HCl 4 mg 02/21/19 13:04 Zofran Injection IVPUSH Q6H PRN NAUSEA AND/OR VOMITING Oxycodone HCl 5 mg 02/21/19 13:33 Roxicodone - PO Q6H PRN PAIN LEVEL 6-10 Pantoprazole Sodium 40 mg 02/22/19 10:00 Protonix - PO DAILY [facility] Rosuvastatin Calcium 10 mg 02/21/19 22:00 Crestor - PO HS [facility] Tamsulosin HCl 0.4 mg 02/22/19 08:30 Flomax - PO DAILY@0830 [facility] ASSESSMENT/PLAN: 58 y/o male with PMH of bladder cancer, HLD, re current infection of right groin following right femoral endarterectomy back in July 2018, requiring multiple I and D's of the area in the past- patient is now POD #0 s/p iliopopliteal bypass- obturator bypass with removal of R femoral artery #Neuro AAOx3; stable no issiues #Cardiovascular POD #0 s/p iliopopliteal bypass- obturator bypass with removal of R femoral artery sinus deborah; asymptomatic HLD- c/w crestor monitor hemodynamics c/w plavix oxy and morphine PRN for pain zofran PRN for nausea LR @75mls/hr #GI stable no issues sodium-controlled diet PPI # history of bladder ca c/w flomax #Pulmonary saturating well on 2L NC monitor 02 sats incentive spirometer F/E/N LR @75mls/hr monitor electrolytes sodium-controlled diet dvt ppx: heparin sq GI ppx: PPI Dispo: We will continue to follow the patient. Thank you for this consultative opportunity. Problem List - Problems (1) Abscess of right groin Code(s): L02.214 - CUTANEOUS ABSCESS OF GROIN (2) HLD (hyperlipidemia) Code(s): E78.5 - HYPERLIPIDEMIA, UNSPECIFIED (3) Infection of prosthetic graft Code(s): T85.79XA - INFECT/INFLM REACTION DUE TO OTH INT PROSTH DEV/GRFT, INIT Qualifiers: Encounter type: initial encounter Qualified Code(s): T85.79XA - Infection and inflammatory reaction due to other internal prosthetic devices, implants and grafts, initial encounter Visit type - Emergency Visit Emergency Visit: Yes ED Registration Date: 02/21/19 Care time: The patient presented to the Emergency Department on the above date and was hospitalized for further evaluation of their emergent condition. - New Patient This patient is new to me today: Yes Date on this admission: 02/21/19 - Critical Care Critical Care patient: Yes Total Critical Care Time (in minutes): 35 Critical Care Statement: The care of this patient involved high complexity decision making to prevent further life threatening deterioration of the patient 's condition and/or to evaluate & treat vital organ system(s) failure or risk of failure. ATTENDING PHYSICIAN STATEMENT I saw and evaluated the patient. I reviewed the resident's note and discussed the case with the resident. I agree with the resident's findings and plan as documented. SUBJECTIVE: OBJECTIVE: ASSESSMENT AND PLAN:
[2019-02-21] MEDS: CEFAZOLIN 2 GM/D5W 2 GM/50 ML ML IVPB SCH (17:30)
[2019-02-21] MEDS: morphine SULFATE 4 MG/ML VIAL IVPUSH PRN (20:06)
[2019-02-21] MEDS: HEPARIN NA (PORCINE) 5,000 UNITS/ML 1ML VIAL SQ SCH (21:12)
[2019-02-21] MEDS: MUPIROCIN 2% TOPICAL OINTMENT FOR DECOLONIZATION NS SCH (21:13)
[2019-02-21] MEDS ORDERED: ROSUVASTATIN CA 10 MG TABLET (FP) PO SCH (22:00)
[2019-02-21] MEDS ORDERED: CHLORHEXIDINE GLUCONATE 4% CLEANSER FOR DECOLONIZATION TP SCH (22:00)
[2019-02-22] MEDS: CEFAZOLIN 2 GM/D5W 2 GM/50 ML ML IVPB SCH (00:26)
[2019-02-22] MEDS: HEPARIN NA (PORCINE) 5,000 UNITS/ML 1ML VIAL SQ SCH ×3 (06:08→22:16)
[2019-02-22] MEDS: morphine SULFATE 4 MG/ML VIAL IVPUSH PRN (06:15)
[2019-02-22 06:52] LABS: BASO % 0.2 % (0-2.0); EOS % 0.5 % (0-4.5); HEMATOCRIT 27.1 % (35.4-49); HEMOGLOBIN 9.3 GM/dL (11.7-16.9); LYMPH % 14.8 % (8-40); MCHC 34.5 g/dl (32.0-35.9); MEAN CELL VOLUME 98.8 fl (80-96); MEAN PLT VOLUME 7.3 fl (7.5-11.1); MONO % 8.7 % (3.8-10.2); NEUT % 75.8 % (42.8-82.8); PLATELET COUNT 174 K/MM3 (134-434); RBC 2.74 M/mm3 (4.00-5.60); RDW 15.7 % (11.9-15.9); WHITE BLOOD COUNT 5.7 K/mm3 (4.0-10.0)
[2019-02-22 07:25] LABS: ALBUMIN 2.6 g/dl (3.4-5.0); BILIRUBIN,TOTAL 0.4 mg/dL (0.2-1); BLOOD UREA NITROGEN 12.1 mg/dL (7-18); CALCIUM 7.7 mg/dL (8.5-10.1); MAGNESIUM 1.9 mg/dL (1.8-2.4); PHOSPHOROUS 4.6 mg/dL (2.5-4.9); POTASSIUM 3.7 mmol/L (3.5-5.1); TOT PROT 5.1 g/dl (6.4-8.2)
--- NOTE | 2019-02-22 08:00 | PN ---
Progress Note (short form) - Note Progress Note: VASCULAR SURGERY POD #1 s/p Iliopopliteal bypass - obturator bypass. Resection right femoral artery, Right groin VAC No acute events per RN notes. Alert. C/o incisional tenderness. Adequate pain management w/ meds ordered. Denies n/v/f/c, CP, palpitations, SOB, MARIE, ischemic rest pain to right foot. Last Vital Signs Temp Pulse Resp BP Pulse Ox 98.6 F 62 13 113/61 98 02/22/19 07:00 02/22/19 07:00 02/22/19 07:00 02/22/19 07:00 02/21/19 20:41 CBC, BMP 02/22/19 06:10 02/22/19 06:10 Gen: nad ABD: RLQ ioban dressing in place (percy underneath). RLE: Proximal thigh wound VAC in place (good suction as evidenced by foam collapse). Medial thigh distal incision with Ioban dressing in place (percy underneath). Foot is warm. Palpable DP 2+, PT 1+ : hussein to gravity (clear) Problem List - Problems (1) Claudication of right lower extremity Assessment/Plan: POD #1 s/p Iliopopliteal bypass - obdurator bypass. Resection right femoral artery 1. All surgical dressings including wound VAC will be changed by Surgery PAs on rounds tomorrow 2. May get oob to chair 3. Downgraded to floor 4. Plavix daily 5. DVT PPX 6. Regular Diet Above plan discussed with Dr. De La Torre and agrees Code(s): I73.9 - PERIPHERAL VASCULAR DISEASE, UNSPECIFIED (2) HLD (hyperlipidemia) Code(s): E78.5 - HYPERLIPIDEMIA, UNSPECIFIED
[2019-02-22] MEDS ORDERED: MAGNESIUM SULF 50% (8.12 MEQ/2 ML-1 GM VIAL) IVPB ONE (08:30)
[2019-02-22] MEDS ORDERED: TAMSULOSIN HCL 0.4 MG CAP PO SCH (08:30)
--- NOTE | 2019-02-22 08:52 | PN ---
Progress Note (short form) - Note Progress Note: Anesthesia postop note 58 y/o M s/p GA for iliac-popliteal bypass, removal of infected graft. POD#1, vss, aaox3, some incisional discomfort, No anesthesia complications.
[2019-02-22] MEDS: oxyCODONE HCL 5 MG TABLET PO PRN ×2 (08:59→15:32)
[2019-02-22] MEDS: MUPIROCIN 2% TOPICAL OINTMENT FOR DECOLONIZATION NS SCH (09:23)
[2019-02-22] MEDS ORDERED: CYANOCOBALAMIN PO SCH (10:00)
[2019-02-22] MEDS ORDERED: PANTOPRAZOLE 40 MG TABLET (FP) PO SCH (10:00)
[2019-02-22] MEDS ORDERED: CHOLECALCIFEROL (VIT D3) 1,000 UNIT (25 MCG) TABLET PO SCH (10:00)
[2019-02-22] MEDS ORDERED: CLOPIDOGREL BISULFATE 75 MG TABLET (FP) PO SCH (10:00)
--- NOTE | 2019-02-22 11:11 | PN ---
Teaching Attending Note Name of Resident: Carmen Del Cid ATTENDING PHYSICIAN STATEMENT I saw and evaluated the patient. I reviewed the resident's note and discussed the case with the resident. I agree with the resident's findings and plan as documented. SUBJECTIVE: Patient seen and examined in the ICU. Awake and alert. (+) 9/10 pain in the right groin. No CP or SOB. No acute events overnight. Intake & Output 02/19/19 02/20/19 02/21/19 02/22/19 23:59 23:59 23:59 23:59 Intake Total 2675 912.5 Output Total 1400 2200 Balance 1275 -1287.5 Weight 161 lb Last Vital Signs Temp Pulse Resp BP Pulse Ox 98.0 F 66 14 105/64 98 02/22/19 10:00 02/22/19 10:00 02/22/19 10:00 02/22/19 10:00 02/22/19 08:41 Active Medications Acetaminophen (Tylenol -) 325 mg PO Q6H PRN PRN Reason: PAIN LEVEL 6-10 Last Admin: 02/22/19 08:57 Dose: 325 mg Benzocaine (Anbesol -) 1 applic MM PRN PRN PRN Reason: ORAL PAIN/MOUTH SORES Chlorhexidine Gluconate (Hibiclens For Decolonization -) 1 applic TP HS [facility] Last Admin: 02/21/19 21:13 Dose: 1 applic Cholecalciferol (Vitamin D3 -) 1,000 unit PO DAILY [facility] Last Admin: 02/22/19 09:23 Dose: 1,000 unit Clopidogrel Bisulfate (Plavix -) 75 mg PO DAILY [facility] Last Admin: 02/22/19 09:23 Dose: 75 mg Heparin Sodium (Porcine) (Heparin -) 5,000 unit SQ TID [facility] Last Admin: 02/22/19 06:08 Dose: 5,000 unit Lactated Ringer's (Lactated Ringers Solution) 1,000 mls @ 75 mls/hr IV ASDIR [facility] Last Admin: 02/21/19 18:04 Dose: Not Given Morphine Sulfate (Morphine Sulfate) 4 mg IVPUSH Q6H PRN PRN Reason: PAIN LEVEL 1-5 Last Admin: 02/22/19 06:15 Dose: 4 mg Mupirocin (Bactroban Ointment (For Decolonization) -) 1 applic NS BID [facility] Stop: 02/26/19 21:59 Last Admin: 02/22/19 09:23 Dose: 1 applic Non-Formulary Medication (Cyanocobalamin (Vitamin B-12) [Vitamin B-12]) 1 tab PO DAILY [facility] Ondansetron HCl (Zofran Injection) 4 mg IVPUSH Q6H PRN PRN Reason: NAUSEA AND/OR VOMITING Oxycodone HCl (Roxicodone -) 5 mg PO Q6H PRN PRN Reason: PAIN LEVEL 6-10 Last Admin: 02/22/19 08:59 Dose: 5 mg Pantoprazole Sodium (Protonix -) 40 mg PO DAILY [facility] Last Admin: 02/22/19 09:23 Dose: 40 mg Rosuvastatin Calcium (Crestor -) 10 mg PO HS [facility] Last Admin: 02/21/19 21:12 Dose: 10 mg Tamsulosin HCl (Flomax -) 0.4 mg PO DAILY@0830 [facility] Last Admin: 02/22/19 08:58 Dose: 0.4 mg GENERAL: Awake, alert, and fully oriented, in no acute distress. EYES: PEERLA; EOMI; no scleral icterus . NECK: no JVD; no lymphadenopathy LUNGS: CTA B/L; no rales, rhonchi or wheezing HEART: S1S2 ABDOMEN: Soft, NT/NSD +BS in all 4 quadrants : right groin/upper thigh dressing c/d/i MUSCULOSKELETAL: Normal range of motion at all joints. No bony deformities or tenderness. No CVA tenderness. EXTREMITIES: SCDS in place; warm; well-perfused; no clubbing/cyanosis or edema NEUROLOGICAL: Non-focal PSYCHIATRIC: Cooperative. Good eye contact. Appropriate mood and affect. SKIN: Warm, dry, normal turgor, no rashes or lesions noted. Laboratory Results - last 24 hr 02/21/19 02/22/19 02/22/19 13:50 06:10 06:10 WBC 5.7 RBC 2.74 L Hgb 9.3 L Hct 27.1 L D MCV 98.8 H MCH 34.0 H MCHC 34.5 RDW 15.7 D Plt Count 174 D MPV 7.3 L Absolute Neuts (auto) 4.4 Neutrophils % 75.8 Lymphocytes % 14.8 Monocytes % 8.7 Eosinophils % 0.5 Basophils % 0.2 Nucleated RBC % 0 Sodium 141 Potassium 3.7 Chloride 106 Carbon Dioxide 29 Anion Gap 6 L BUN 12.1 Creatinine 1.0 Est GFR (CKD-EPI)AfAm 95.06 Est GFR (CKD-EPI)NonAf 82.02 Random Glucose 119 H Calcium 7.7 L Phosphorus 4.6 Magnesium 1.9 Total Bilirubin 0.4 AST 22 ALT 16 Alkaline Phosphatase 39 L Total Protein 5.1 L Albumin 2.6 L Blood Type A POSITIVE Antibody Screen Negative Problem List - Problems (1) Abscess of right groin Code(s): L02.214 - CUTANEOUS ABSCESS OF GROIN (2) HLD (hyperlipidemia) Code(s): E78.5 - HYPERLIPIDEMIA, UNSPECIFIED (3) Infection of prosthetic graft Code(s): T85.79XA - INFECT/INFLM REACTION DUE TO OTH INT PROSTH DEV/GRFT, INIT Qualifiers: Encounter type: initial encounter Qualified Code(s): T85.79XA - Infection and inflammatory reaction due to other internal prosthetic devices, implants and grafts, initial encounter ASSESSMENT/PLAN: POD # 1: Iliopopliteal bypass - obdurator bypass. Resection right femoral artery History of bladder cancer HLD Recurrent infection of right groin Right femoral endarterectomy July 2018, Pain control DC hussein O2 as needed Incentive Spirometry PO as tolerated Strict I & O Plavix VTE prophylaxis Floor Dr Swann
--- NOTE | 2019-02-22 14:35 | PN ---
Physical Exam: SUBJECTIVE: POD #1. Patient seen and examined in the morning. No acute events overnight. No events on cardiac monitoring. Patient complains of pain in his legs. No complaints of chest pain, shortness of breath, abdominal pain,nausea, vomiting, diarrhea. OBJECTIVE: Vital Signs Period Temp Pulse Resp BP Sys/Singleton Pulse Ox Last 24 Hr 97.4 F-98.6 F 45-72 10-18 96-143/52-78 98-100 GENERAL: The patient is awake, alert, and fully oriented, in no acute distress. HEAD: Normal with no signs of trauma. EYES: PERRLA, EOMI NECK: Trachea midline, full range of motion, supple. LUNGS: Breath sounds equal, clear to auscultation bilaterally HEART: Regular rate and rhythm, S1, S2 without murmur, rub or gallop. ABDOMEN: Soft, nontender, nondistended, normoactive bowel sounds EXTREMITIES: 2+ pulses, warm, well-perfused, no edema. : right groin dressing in place. Wound vac draining. NEUROLOGICAL: Cranial nerves II through XII grossly intact. PSYCH: Normal mood, normal affect. SKIN: Warm, dry, normal turgor, no rashes or lesions noted Laboratory Results - last 24 hr 02/21/19 02/22/19 02/22/19 13:50 06:10 06:10 WBC 5.7 RBC 2.74 L Hgb 9.3 L Hct 27.1 L D MCV 98.8 H MCH 34.0 H MCHC 34.5 RDW 15.7 D Plt Count 174 D MPV 7.3 L Absolute Neuts (auto) 4.4 Neutrophils % 75.8 Lymphocytes % 14.8 Monocytes % 8.7 Eosinophils % 0.5 Basophils % 0.2 Nucleated RBC % 0 Sodium 141 Potassium 3.7 Chloride 106 Carbon Dioxide 29 Anion Gap 6 L BUN 12.1 Creatinine 1.0 Est GFR (CKD-EPI)AfAm 95.06 Est GFR (CKD-EPI)NonAf 82.02 Random Glucose 119 H Calcium 7.7 L Phosphorus 4.6 Magnesium 1.9 Total Bilirubin 0.4 AST 22 ALT 16 Alkaline Phosphatase 39 L Total Protein 5.1 L Albumin 2.6 L Blood Type A POSITIVE Antibody Screen Negative Active Medications Generic Name Dose Route Start Last Admin Trade Name Freq PRN Reason Stop Dose Admin Acetaminophen 325 mg 02/21/19 13:33 02/22/19 08:57 Tylenol - PO 325 mg Q6H PRN Administration PAIN LEVEL 6-10 Benzocaine 1 applic 02/21/19 13:14 Anbesol - MM PRN PRN ORAL PAIN/MOUTH SORES Chlorhexidine Gluconate 1 applic 02/21/19 22:00 02/21/19 21:13 Hibiclens For Decolonization - TP 1 applic HS [facility] Administration Cholecalciferol 1,000 unit 02/22/19 10:00 02/22/19 09:23 Vitamin D3 - PO 1,000 unit DAILY [facility] Administration Clopidogrel Bisulfate 75 mg 02/22/19 10:00 02/22/19 09:23 Plavix - PO 75 mg DAILY [facility] Administration Heparin Sodium (Porcine) 5,000 unit 02/21/19 22:00 02/22/19 06:08 Heparin - SQ 5,000 unit TID [facility] Administration Lactated Ringer's 1,000 mls @ 75 mls/hr 02/21/19 13:15 02/21/19 18:04 Lactated Ringers Solution IV Not Given ASDIR [facility] Morphine Sulfate 4 mg 02/21/19 13:15 02/22/19 06:15 Morphine Sulfate IVPUSH 4 mg Q6H PRN Administration PAIN LEVEL 1-5 Mupirocin 1 applic 02/21/19 22:00 02/22/19 09:23 Bactroban Ointment (For Decolonization) - NS 02/26/19 21:59 1 applic BID [facility] Administration Non-Formulary Medication 1 tab 02/22/19 10:00 Cyanocobalamin (Vitamin B-12) [Vitamin B-12] PO DAILY [facility] Ondansetron HCl 4 mg 02/21/19 13:04 Zofran Injection IVPUSH Q6H PRN NAUSEA AND/OR VOMITING Oxycodone HCl 5 mg 02/21/19 13:33 02/22/19 08:59 Roxicodone - PO 5 mg Q6H PRN Administration PAIN LEVEL 6-10 Pantoprazole Sodium 40 mg 02/22/19 10:00 02/22/19 09:23 Protonix - PO 40 mg DAILY [facility] Administration Rosuvastatin Calcium 10 mg 02/21/19 22:00 02/21/19 21:12 Crestor - PO 10 mg HS [facility] Administration Tamsulosin HCl 0.4 mg 02/22/19 08:30 02/22/19 08:58 Flomax - PO 0.4 mg DAILY@0830 [facility] Administration ASSESSMENT/PLAN: 58 M with PMH of bladder cancer, HLD, re-current infection of right groin following right femoral endartectomy in July 2018, requiring multiple I&D of the site, POD #1 s/p iliopopliteal bypass- obturator bypass with removal of R femoral artery. Neuro -AAOx3, stable no issues Cardiovascular POD#1 s/p iliopopliteal bypass-obturator bypass with removal of R femoral artery sinus deborah, asymptomatic continue rosuvastatin 10 mg PO HS continue plavix 75 mg PO pain management as per vascular team GI stable no issues Sodium-controlled diet PPI History of bladder cancer Continue with flomax Pulmonary Saturating on RA Incentive spirometer F: Oral hydration E: Monitor CMP N: Sodium controlled diet DVT ppx:Heparin SQ TID GI: Protonix Dispo: Transfer to med-surgical unit. Visit type - Emergency Visit Emergency Visit: Yes ED Registration Date: 02/21/19 Care time: The patient presented to the Emergency Department on the above date and was hospitalized for further evaluation of their emergent condition. - New Patient This patient is new to me today: Yes Date on this admission: 02/22/19 - Critical Care Critical Care patient: Yes Total Critical Care Time (in minutes): 45 Critical Care Statement: The care of this patient involved high complexity decision making to prevent further life threatening deterioration of the patient 's condition and/or to evaluate & treat vital organ system(s) failure or risk of failure. ATTENDING PHYSICIAN STATEMENT I saw and evaluated the patient. I reviewed the resident's note and discussed the case with the resident. I agree with the resident's findings and plan as documented. SUBJECTIVE: OBJECTIVE: ASSESSMENT AND PLAN:
[2019-02-22] MEDS ORDERED: oxyCODONE HCL 5 MG TABLET PO PRN (16:18)
[2019-02-22] MEDS ORDERED: ONDANSETRON 4 MG/2 ML VIAL IVPUSH PRN (16:18)
[2019-02-22] MEDS ORDERED: BENZOCAINE 20 % GEL TUBE MM PRN (16:18)
[2019-02-22] MEDS ORDERED: morphine SULFATE 4 MG/ML VIAL IVPUSH PRN (16:18)
[2019-02-22] MEDS ORDERED: MUPIROCIN 2% TOPICAL OINTMENT FOR DECOLONIZATION NS SCH (22:00)
[2019-02-22] MEDS ORDERED: CHLORHEXIDINE GLUCONATE 4% CLEANSER FOR DECOLONIZATION TP SCH (22:00)
[2019-02-22] MEDS: ROSUVASTATIN CA 10 MG TABLET (FP) PO SCH (22:16)
[2019-02-23] MEDS: HEPARIN NA (PORCINE) 5,000 UNITS/ML 1ML VIAL SQ SCH ×3 (06:05→21:55)
[2019-02-23] MEDS: TAMSULOSIN HCL 0.4 MG CAP PO SCH (07:42)
[2019-02-23] MEDS: ACETAMINOPHEN 325 MG TABLET (FP) PO PRN ×3 (07:46→21:54)
[2019-02-23 08:17] LABS: BASO % 0.3 % (0-2.0); EOS % 0.8 % (0-4.5); HEMATOCRIT 25.2 % (35.4-49); HEMOGLOBIN 8.5 GM/dL (11.7-16.9); LYMPH % 19.9 % (8-40); MCH 33.1 pg (25.7-33.7); MCHC 33.6 g/dl (32.0-35.9); MEAN CELL VOLUME 98.4 fl (80-96); MEAN PLT VOLUME 7.5 fl (7.5-11.1); MONO % 7.4 % (3.8-10.2); NEUT % 71.6 % (42.8-82.8); PLATELET COUNT 186 K/MM3 (134-434); RBC 2.56 M/mm3 (4.00-5.60); RDW 15.7 % (11.9-15.9); WHITE BLOOD COUNT 5.5 K/mm3 (4.0-10.0)
[2019-02-23 08:31] LABS: BLOOD UREA NITROGEN 9.6 mg/dL (7-18); CALCIUM 7.8 mg/dL (8.5-10.1); CREATININE 0.8 mg/dL (0.55-1.3); POTASSIUM 3.3 mmol/L (3.5-5.1)
--- NOTE | 2019-02-23 08:44 | PN ---
Progress Note (short form) - Note Progress Note: POD 2 VSS Abd soft Wounds clean and dry Foot warm, palpable DP No BM Stable Increase activity D/C hussein Physical therapy VNS for home care Continue VAC - change today PO Augmentin
[2019-02-23] MEDS ORDERED: POTASSIUM CHLORIDE TABS 20 MEQ TABLET.ER (FP) PO ONE (08:50)
[2019-02-23] MEDS: PANTOPRAZOLE 40 MG TABLET (FP) PO SCH (09:41)
[2019-02-23] MEDS: CYANOCOBALAMIN 1,000 MCG TABLET (FP) PO SCH (09:41)
[2019-02-23] MEDS: AMOX TR/POT CLAV 875MG/125MG TABLETS (FP) PO SCH ×2 (09:41→17:26)
[2019-02-23] MEDS: CLOPIDOGREL BISULFATE 75 MG TABLET (FP) PO SCH (09:41)
[2019-02-23] MEDS: CHOLECALCIFEROL (VIT D3) 1,000 UNIT (25 MCG) TABLET PO SCH (09:41)
--- NOTE | 2019-02-23 13:07 | PN ---
Progress Note (short form) - Note Progress Note: Pt seen for wound vac change. Dressing removed, wound 8.5x2.5x2cm. Wound bed with beefy granulation tissue present. No erythema or purulent drainage, no foul odor. New wound vac dressing applied. Vac at 125mmHG continuous suction. Will re-evaluate Tuesday for continuation of vac vs alternative dressing.
--- NOTE | 2019-02-23 15:47 | PROC ---
Procedure Note Procedure: Asked by Dr De La Torre to pull PICC line. PICC line at right UE removed with tip fully intact. Direct pressure held for 5 minuets. No active bleeding or d/c seen at site. no hematoma. pressure dressing applied. Patient tolerated the procedure well and Vitals signs remained stable.
[2019-02-23] MEDS: oxyCODONE HCL 5 MG TABLET PO PRN ×2 (15:57→21:52)
--- NOTE | 2019-02-23 16:47 | PATH ---
Surgical Pathology Report Patient Name: ROCIO KATE Med. Rec. #: [id number] /Age/Gender: 1960 (Age: 58) / M Account: [id number] Location: [facility] MED/SURG Taken: 02/21/2019 Received: 02/21/2019 Reported: 02/23/2019 Physicians: Mateo De La Torre M.D. Specimen(s) Received FOREIGN BODY Clinical History Claudication, infected femoral graft right Final Diagnosis INFECTED FEMORAL GRAFT, RIGHT, REMOVAL: PORTION OF DILATED VESSEL WITH FIBRIN CLOT, AND GRAFT MATERIAL WITH ASSOCIATED CHRONIC INFLAMMATION AND FOREIGN BODY GIANT CELL REACTION. Electronically Signed Angy Lozano M.D. Gross Description Received in formalin labeled "removed infected right femoral graft," is a 3.1 cm in length dilated vessel containing red blood clot. A sales representative leather goods section is submitted in one cassette. 02/22/201902/22/2019
[2019-02-23] MEDS: ROSUVASTATIN CA 10 MG TABLET (FP) PO SCH (21:55)
[2019-02-24] MEDS: ACETAMINOPHEN 325 MG TABLET (FP) PO PRN ×3 (06:40→20:28)
[2019-02-24] MEDS: HEPARIN NA (PORCINE) 5,000 UNITS/ML 1ML VIAL SQ SCH ×3 (06:40→21:58)
[2019-02-24] MEDS ORDERED: PT OWN MED DRAWER 7, Y5N ONE (09:02)
[2019-02-24] MEDS: PANTOPRAZOLE 40 MG TABLET (FP) PO SCH (09:28)
[2019-02-24] MEDS: CLOPIDOGREL BISULFATE 75 MG TABLET (FP) PO SCH (09:28)
[2019-02-24] MEDS: TAMSULOSIN HCL 0.4 MG CAP PO SCH (09:28)
[2019-02-24] MEDS: AMOX TR/POT CLAV 875MG/125MG TABLETS (FP) PO SCH ×2 (09:28→17:53)
[2019-02-24] MEDS: CYANOCOBALAMIN 1,000 MCG TABLET (FP) PO SCH (09:29)
[2019-02-24] MEDS: CHOLECALCIFEROL (VIT D3) 1,000 UNIT (25 MCG) TABLET PO SCH (09:29)
--- NOTE | 2019-02-24 12:17 | PN ---
Progress Note (short form) - Note Progress Note: No new complaints. Walking more VSS Abd soft, no BM Wounds clean and dry DP pulse 2+ Stable Plan D/C ith VNS and home VAC Tuesday
[2019-02-24] MEDS: POTASSIUM CHLORIDE TABS 20 MEQ TABLET.ER (FP) PO SCH (12:51)
[2019-02-24] MEDS: POLYETHYLENE GLYCOL 3350 119 GM BTL PO SCH (14:03)
[2019-02-24] MEDS: MAGNESIUM CL 64 MG TABLET.SA PO SCH (14:04)
[2019-02-24] MEDS: oxyCODONE HCL 5 MG TABLET PO PRN ×2 (14:47→20:27)
[2019-02-24] MEDS: ROSUVASTATIN CA 10 MG TABLET (FP) PO SCH (21:58)
[2019-02-25] MEDS: oxyCODONE HCL 5 MG TABLET PO PRN ×2 (01:59→17:50)
[2019-02-25] MEDS: ACETAMINOPHEN 325 MG TABLET (FP) PO PRN ×2 (01:59→17:51)
[2019-02-25] MEDS: HEPARIN NA (PORCINE) 5,000 UNITS/ML 1ML VIAL SQ SCH ×3 (05:50→22:26)
[2019-02-25] MEDS ORDERED: PT OWN MED DRAWER 7, Y5N ONE (08:36)
[2019-02-25] MEDS: AMOX TR/POT CLAV 875MG/125MG TABLETS (FP) PO SCH ×2 (08:44→17:51)
[2019-02-25] MEDS: TAMSULOSIN HCL 0.4 MG CAP PO SCH (08:44)
[2019-02-25 08:58] LABS: BLOOD UREA NITROGEN 9.5 mg/dL (7-18); CALCIUM 8.3 mg/dL (8.5-10.1); CREATININE 0.8 mg/dL (0.55-1.3); MAGNESIUM 2.3 mg/dL (1.8-2.4); POTASSIUM 3.9 mmol/L (3.5-5.1)
[2019-02-25] MEDS: CHOLECALCIFEROL (VIT D3) 1,000 UNIT (25 MCG) TABLET PO SCH (09:35)
[2019-02-25] MEDS: CLOPIDOGREL BISULFATE 75 MG TABLET (FP) PO SCH (09:35)
[2019-02-25] MEDS: CYANOCOBALAMIN 1,000 MCG TABLET (FP) PO SCH (09:35)
[2019-02-25] MEDS: MAGNESIUM CL 64 MG TABLET.SA PO SCH (09:35)
[2019-02-25] MEDS: PANTOPRAZOLE 40 MG TABLET (FP) PO SCH (09:35)
[2019-02-25] MEDS: POLYETHYLENE GLYCOL 3350 119 GM BTL PO SCH (09:40)
[2019-02-25] MEDS: POTASSIUM CHLORIDE TABS 20 MEQ TABLET.ER (FP) PO SCH (09:40)
[2019-02-25] MEDS: ROSUVASTATIN CA 10 MG TABLET (FP) PO SCH (22:25)
[2019-02-26] MEDS: oxyCODONE HCL 5 MG TABLET PO PRN ×3 (05:58→18:46)
[2019-02-26] MEDS: ACETAMINOPHEN 325 MG TABLET (FP) PO PRN ×3 (06:00→18:46)
[2019-02-26] MEDS: HEPARIN NA (PORCINE) 5,000 UNITS/ML 1ML VIAL SQ SCH ×3 (06:20→21:35)
[2019-02-26] MEDS ORDERED: PT OWN MED DRAWER 7, Y5N ONE (09:21)
[2019-02-26] MEDS: POLYETHYLENE GLYCOL 3350 119 GM BTL PO SCH (09:29)
[2019-02-26] MEDS: AMOX TR/POT CLAV 875MG/125MG TABLETS (FP) PO SCH ×2 (09:29→17:39)
[2019-02-26] MEDS: CHOLECALCIFEROL (VIT D3) 1,000 UNIT (25 MCG) TABLET PO SCH (09:29)
[2019-02-26] MEDS: TAMSULOSIN HCL 0.4 MG CAP PO SCH (09:29)
[2019-02-26] MEDS: CYANOCOBALAMIN 1,000 MCG TABLET (FP) PO SCH (09:29)
[2019-02-26] MEDS: CLOPIDOGREL BISULFATE 75 MG TABLET (FP) PO SCH (09:29)
[2019-02-26] MEDS: MAGNESIUM CL 64 MG TABLET.SA PO SCH (09:29)
[2019-02-26] MEDS: POTASSIUM CHLORIDE TABS 20 MEQ TABLET.ER (FP) PO SCH (09:29)
[2019-02-26] MEDS: PANTOPRAZOLE 40 MG TABLET (FP) PO SCH (09:29)
[2019-02-26 09:35] VITALS: TEMP 98.3
--- NOTE | 2019-02-26 10:13 | DS ---
Physical Exam: SUBJECTIVE: Patient seen and examined POD #4 Iliopopliteal bypass - obturator bypass. 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 Patient seen and examined at the bedside with no complaints. He has been OOB, ambulating to the bathroom and voiding. He is tolerating his diet and his pain is controlled. OBJECTIVE: Vital Signs Period Temp Pulse Resp BP Sys/Singleton Pulse Ox Last 24 Hr 97.7 F-98.3 F 61-70 15-20 120-133/70-74 PHYSICAL EXAM GENERAL: The patient is awake, alert, and fully oriented, in no acute distress. HEAD: Normal with no signs of trauma. EYES: sclera anicteric, conjunctiva clear. LUNGS: unlabored resp on RA. no auditory wheezes, no accessory muscle use. ABDOMEN: incision c/d/i with percy insitu, surrounding tissue with no erythema , edema of evidence of collection or d/c. abdomen Soft, nontender, nondistended EXTREMITIES: Right groin, Dressing removed, wound 8x2c0.5cm. Wound bed with beefy granulation tissue present. No erythema or purulent drainage, no foul odor. New wound vac dressing applied. Vac at 125mmHG continuous suction. right thigh soft, with no evidence of hematoma, no erythema. Thigh incision c/d/i with percy in situ, surrounding tissue intact with no tracking erythema, no evidence of collection or active d/c. Foot well perfused with +2 DP pulse and + 1 TP pulse. B/ L LE compartments soft, supple and non-tender , no edema NEUROLOGICAL: Cranial nerves II through XII grossly intact. Normal speech, gait not observed. PSYCH: Normal mood, normal affect. SKIN: Warm, dry, normal turgor, no rashes or lesions noted. LABS CBC, BMP 02/23/19 07:25 02/25/19 07:35 HOSPITAL COURSE: Date of Admission:02/21/19 The patient was admitted to the Med-Surg Unit after Iliopopliteal bypass - obturator bypass. 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 A wound vac was placed at the right groin site intaop . The day after the surgery, the patient ambulated the hallways with assistance. Narcotic and non-narcotic pain management control was achieved with an oral and IV approach. Blanca-operative IV ABX were administered. DVT prophylaxis was achieved with SCDs and early ambulation. His wound vac was changed and managed by he surgical team on a ,, schedule. The patient ambulated with Physical Therapy and no services were recommended upon discharge. Narcotic scripts and were checked with [facility] prior to escibe. The discharge instructions and an oral pain management, antibiotic and DVT prophylaxis were reviewed with the patient. All questions answered. Above plan discussed with Dr. De La Torre. Date of Discharge: 02/26/19 Minutes to complete discharge: 30 Discharge Summary Problems reviewed: Yes Reason For Visit: CLAUDICATION Condition: Stable - Instructions Disposition: VNS/HOME HEALTH CARE - Home Medications Comprehensive Discharge Medication List: Ambulatory Orders Cholecalciferol (Vitamin D3) [Vitamin D3] 1 tab PO DAILY 01/24/17 Cyanocobalamin (Vitamin B-12) [Vitamin B-12] 1 tab PO DAILY 01/24/17 Clopidogrel Bisulfate [Plavix -] 75 mg PO DAILY 08/25/18 Pantoprazole Sodium [Protonix -] 40 mg PO DAILY #30 tablet.ec 01/26/19 Tamsulosin HCl [Flomax -] 0.4 mg PO DAILY@0800 cap.er.24h 01/26/19 Benzocaine Oral Gel [Anbesol -] 1 applic MM PRN PRN 02/20/19 Rosuvastatin Calcium [Crestor] 10 mg PO DAILY 02/20/19 Problem List - Problems (1) Abscess of right groin Assessment/Plan: Patient doing well. Wound vac in place on Augmentin. Plan for d/c home with VNS and wound vac today. - Continue DVT prophylaxis-d/c on Aspirin and Plavix - Continue Augmentin for 5 more days - OOB as tolerated - Pain control - D/c home with VNS an wound vac= change M,,F - F/u with Dr De La Torre after Mar 07 Evaluation and plan discussed with Dr De La Torre Code(s): L02.214 - CUTANEOUS ABSCESS OF GROIN (2) Claudication of right lower extremity Code(s): I73.9 - PERIPHERAL VASCULAR DISEASE, UNSPECIFIED (3) Infection of prosthetic graft Code(s): T85.79XA - INFECT/INFLM REACTION DUE TO OTH INT PROSTH DEV/GRFT, INIT Qualifiers: Encounter type: initial encounter Qualified Code(s): T85.79XA - Infection and inflammatory reaction due to other internal prosthetic devices, implants and grafts, initial encounter (4) Peripheral arterial disease Code(s): I73.9 - PERIPHERAL VASCULAR DISEASE, UNSPECIFIED This patient is new to me today: Yes Date on this admission: 02/26/19 Emergency Visit: No Critical Care patient: No - Discharge Referral Referred to [facility] Med P.C.: No
[2019-02-26 20:22] VITALS: BP 147/78; PULSE 67
[2019-02-26] MEDS: ROSUVASTATIN CA 10 MG TABLET (FP) PO SCH (21:35)
--- NOTE | 2019-03-02 19:00 | OP ---
DATE OF OPERATION: 02/21/2019 SURGEON: Mateo De La Torre MD BUFFER MACHINE: LISBETH Do PROCEDURE: Right ilio-popliteal bypass with prosthetic graft through obturator foramen, resection of right femoral artery. PREOPERATIVE DIAGNOSIS: Infected right femoral artery patch. POSTOPERATIVE DIAGNOSIS: Infected right femoral artery patch. ANESTHESIA: General. ANESTHESIOLOGIST: Sera Valentin MD OPERATIVE FINDINGS: The right external iliac artery and above-knee popliteal artery were patent with mild atherosclerotic changes. The right common femoral artery was enlarged to approximately 3 cm in diameter with a prosthetic patch in place. There was no gross pus. The deep femoral artery was occluded at its origin. OPERATIVE PROCEDURE: Followed routine patient identification with side and site verification, general anesthesia was induced. A Chavez catheter was placed. The abdomen, right groin, and leg were prepped with ChloraPrep. Time-out was performed. An incision was made in the right lower quadrant above the pubic symphysis extending to just above the iliac crest and carried down to subcutaneous tissues and muscle with cautery. The retropubic space was dissected and the external iliac artery encircled with Vessel Loops. Incision was made on the medial aspect of the distal right thigh, carried down to subcutaneous tissues using cautery for hemostasis. The muscle fascia was incised. The sartorius muscle was reflected posteriorly and the popliteal space entered. The above-knee popliteal artery was mobilized and secured with Vessel Loops. Crossing vessels were ligated with silk ties and divided. Branches were ligated and divided. A long metal [employer] was passed deep to the adductor shannan muscle from the thigh proximally through the obturator foramen and into the retroperitoneal wound. An 8-mm ringed PTFE graft was passed through the [employer] h[employer] instructor with cannula twisted. The patient was systemically heparinized. The external iliac artery was occluded with vascular clamps and opened on exposed surface with a 1-cm arteriotomy. The end of the graft was beveled and anastomosed to the side of the artery with running suture of 5-0 Prolene. Prior to completion of the suture line, the graft was occluded with a clamp, and the artery was allowed to back bleed and flush. Suture line was completed, and the artery was released. Bleeding from the suture line was controlled with Surgicel, Gelfoam, and thrombin. The graft was pulled taught in its bed with the leg extended. The above-knee popliteal artery was then occluded with Vessel Loops and opened on exposed surface with a 1-cm arteriotomy. The end of the graft was beveled and anastomosed to the side of the artery with running suture of 6-0 Prolene. Prior to completion of the suture line, the arteries were allowed to back bleed and flush, and the graft was flushed. The lumen was filled with heparin solution, and the suture line was completed. Flow was then restored to the popliteal artery with removal of all clamps. Surgicel, Gelfoam, and thrombin were applied to control any bleeding. Protamine was administered intravenously. When hemostasis was adequate in both wounds, they were irrigated with bacitracin solution. The fine incision was closed with interrupted sutures of 3-0 Vicryl in subcutaneous tissues and skin percy. The abdominal incision was closed with running sutures of 0 PDS and then 3-0 Vicryl in the subcutaneous tissues and skin percy. Sterile occlusive dressings were applied. Incision was then made in the groin over the popliteal femoral pulse. This was carried down to subcutaneous tissues using cautery for hemostasis. The proximal superficial femoral artery was identified and secured with a Vessel Loop. Proximal dissection allowed identification of the deep femoral artery, which was also dissected free and secured with a Vessel Loop. The femoral artery was then dissected and the patch freed from the subcutaneous tissues. The artery was mobilized completely. During dissection a small hole in the femoral vein was repaired with a suture of 5-0 Prolene. During the proximal dissection of the common femoral artery, the extension was extended more proximally. Bleeding from the artery required placement of a No. 6 Papito catheter within the external iliac artery through a small incision in the graft patch. This was inflated to obtain hemostasis and then the defect in the artery was closed with interrupted suture of 6-0 Prolene. The proximal common femoral artery was then able to be dissected and the vascular clamp applied after removing the Papito catheter. The artery was then transected proximally and distally leaving the junction of the deep and superficial femoral arteries intact. The specimen was removed and sent to Pathology. Back bleeding from the superficial femoral artery was present, but there was no back bleeding from the deep femoral artery. Gentle exploration with a clamp revealed no lumen present. Therefore, the end of the vessel was over sewn with running suture of 5-0 Prolene. The common femoral artery was also closed with a running suture of 5-0 Prolene. The wound was irrigated, and Surgicel was applied over the base of the wound. The subcutaneous tissues were closed over the wound with interrupted sutures of 3-0 Vicryl and then the rest of the wound was left open to be treated with a VAC dressing when available. A moist, sterile gauze was placed and occlusive dressing placed over that. The patient was then extubated and taken to the recovery room in stable condition. MATEO DE LA TORRE M.D. [id number]
== END 2019-02-26 22:12 | disposition home health service (06) | DRG 253 ==
LOC: JSAMEDAYSX 02-21 08:16 → JICU 02-21 17:07 → J8W 02-22 15:05
PROVIDERS: ADMIT Surgery; ATTEND Surgery
PROC: 3E033GC Introduction of Other Therapeutic Substance into Peripheral Vein, Percutaneous Approach (ICD-10-PCS; 2019-02-21)
PROC: 041K0JL Bypass Right Femoral Artery to Popliteal Artery with Synthetic Substitute, Open Approach (ICD-10-PCS; principal; 2019-02-21 08:00)
PROC: 04BK0ZZ Excision of Right Femoral Artery, Open Approach (ICD-10-PCS; 2019-02-21 08:00)
DX: T82.7XXA Infection and inflammatory reaction due to other cardiac and vascular devices, implants and grafts, initial encounter (principal); L02.214 Cutaneous abscess of groin; E78.5 Hyperlipidemia, unspecified; Z85.51 Personal history of malignant neoplasm of bladder; Y84.8 Other medical procedures as the cause of abnormal reaction of the patient, or of later complication, without mention of misadventure at the time of the procedure; I73.9 Peripheral vascular disease, unspecified; Y83.8 Other surgical procedures as the cause of abnormal reaction of the patient, or of later complication, without mention of misadventure at the time of the procedure
CPT/HCPCS: 36415; 80048; 80053; 83735; 84100; 85025; 86850; 86900; 86901; 88300-TC; 94760; 97116-GP; 97161-GP; J1644

== ENCOUNTER 2020-09-01 05:39 | Day surgery (SDC) | payer BC, OTHER ==
[2020-08-29 11:27] VITALS: BMI 25.1
[2020-09-01] MEDS ORDERED: ACETAMINOPHEN 325 MG TABLET (FP) PO PRN (08:21)
[2020-09-01] MEDS ORDERED: ONDANSETRON 4 MG/2 ML VIAL IVPUSH PRN (08:21)
[2020-09-01] MEDS ORDERED: MIDAZOLAM HCL 2 MG/2 ML SINGLE DOSE VIAL ONE (08:22)
[2020-09-01] MEDS ORDERED: LACTATED RINGERS SOLUTION 1,000 ML IV SCH (08:30)
[2020-09-01 10:02] VITALS: BP 119/74; PULSE 69; TEMP 97.8
== END 2020-09-01 10:30 | disposition home or self-care (01) ==
LOC: JASU-SURG 05:39
PROVIDERS: ATTEND Urology
PROC: 0TF3XZZ Fragmentation in Right Kidney Pelvis, External Approach (ICD-10-PCS; principal; 2020-09-01 08:30)
DX: N20.0 Calculus of kidney (principal)

== ENCOUNTER 2020-10-22 15:50 | Inpatient (IN) | payer BC, OTHER ==
[2020-10-22] MEDS ORDERED: PIPERACILLIN/TAZOB 3.375 GM 3.375 GM in DEXTROSE 5%-WATER - 50 ML IVPB ONE (18:21)
[2020-10-22] MEDS ORDERED: VANCOMYCIN 1 GM in D5W (PRE-DOCKED) 1,000 MG/250 ML IVPB ONE (18:21)
[2020-10-22] MEDS ORDERED: VANCOMYCIN 1 GRAM (PRE-DOCKED) 1,000 MG/250 ML BAG IVPB ONE (19:01)
[2020-10-22] MEDS ORDERED: PIPERACILLIN/TAZOB 3.375 GM 3.375 GM/50 ML BAG IVPB ONE (19:01)
[2020-10-22 19:39] LABS: BASO % 0.9 % (0-2.0); EOS % 0.9 % (0-4.5); HEMATOCRIT 38.5 % (35.4-49); HEMOGLOBIN 13.3 GM/dL (11.7-16.9); LYMPH % 13.3 % (8-40); MCH 33.7 pg (25.7-33.7); MCHC 34.4 g/dl (32.0-35.9); MEAN PLT VOLUME 7.9 fl (7.5-11.1); MONO % 9.4 % (3.8-10.2); NEUT % 75.5 % (42.8-82.8); PLATELET COUNT 301 10^3/uL (134-434); RBC 3.93 M/mm3 (4.00-5.60); RDW 13.3 % (11.9-15.9); WHITE BLOOD COUNT 7.3 K/mm3 (4.0-10.0)
[2020-10-22 19:49] LABS: INR 0.98 (0.83-1.09); PROTHROMBIN TIME (PATIENT) 11.9 SEC (9.7-13.0)
[2020-10-22 20:01] LABS: BLOOD UREA NITROGEN 15.7 mg/dL (7-18); CALCIUM 8.6 mg/dL (8.5-10.1)
[2020-10-22 20:04] LABS: CREATININE 0.7 mg/dL (0.55-1.3)
[2020-10-22 20:06] LABS: BILIRUBIN,TOTAL 0.4 mg/dL (0.2-1); TOT PROT 7.5 g/dl (6.4-8.2)
[2020-10-22 22:30] LABS: EPI CELLS 27 /uL (0-25.1); HYALINE CASTS 11 /uL (0-3.1); PH,URINE 5.5 (5.0-8.0); URINE APPEARANCE CLOUDY; URINE BACTERIA 7 /uL (0-1359); URINE BILIRUBIN NEGATIVE (NEGATIVE); URINE COLOR DK YELLOW; URINE GLUCOSE (UA) NEGATIVE (NEGATIVE); URINE KETONE TRACE (NEGATIVE); URINE LEUK ESTERASE 1+ (NEGATIVE); URINE NITRITE NEGATIVE (NEGATIVE); URINE PROTEIN 1+ (NEGATIVE); URINE RBC 408 /uL (0-23.9); URINE UROBILINOGEN 0.2 mg/dL (0.2-1.0); URINE WBC 196 /uL (0-25.8)
[2020-10-23] MEDS ORDERED: PIPERACILLIN/TAZOBACTAM 3.375 GM VIAL IVPB ONE ×2 (03:10→11:11)
[2020-10-23] MEDS ORDERED: DEXTROSE 5%-WATER - 50 ML IVPB ONE ×2 (03:10→11:12)
[2020-10-23] MEDS: PIPERACILLIN/TAZOB 3.375 GM 3.375 GM in DEXTROSE 5%-WATER - 50 ML IVPB SCH ×3 (03:25→12:49)
[2020-10-23] MEDS ORDERED: ACETAMINOPHEN 325 MG TABLET (FP) PO PRN (06:48)
[2020-10-23 07:20] VITALS: BMI 25.4
[2020-10-23] MEDS ORDERED: VANCOMYCIN 1,000 MG in DEXTROSE 5%-WATER - 250 ML IVPB SCH (08:00)
[2020-10-23] MEDS ORDERED: VANCOMYCIN 1 GRAM (PRE-DOCKED) 1,000 MG/250 ML BAG IVPB ONE (08:00)
[2020-10-23] MEDS: DEXTROSE 5%-0.45% SALINE 1,000 ML IV SCH (08:25)
[2020-10-23 09:28] LABS: BASO % 0.6 % (0-2.0); EOS % 0.7 % (0-4.5); HEMATOCRIT 34.1 % (35.4-49); HEMOGLOBIN 11.9 GM/dL (11.7-16.9); LYMPH % 11.5 % (8-40); MCH 33.9 pg (25.7-33.7); MCHC 34.9 g/dl (32.0-35.9); MEAN CELL VOLUME 97.1 fl (80-96); MEAN PLT VOLUME 7.5 fl (7.5-11.1); MONO % 10.1 % (3.8-10.2); NEUT % 77.1 % (42.8-82.8); PLATELET COUNT 257 10^3/uL (134-434); RBC 3.51 M/mm3 (4.00-5.60); RDW 13.6 % (11.9-15.9); WHITE BLOOD COUNT 6.5 K/mm3 (4.0-10.0)
[2020-10-23] MEDS: CYANOCOBALAMIN 1,000 MCG TABLET (FP) PO SCH (09:40)
[2020-10-23] MEDS: HEPARIN NA (PORCINE) 5,000 UNITS/ML 1ML VIAL SQ SCH ×2 (09:40→21:33)
[2020-10-23] MEDS: TAMSULOSIN HCL 0.4 MG CAP PO SCH (09:40)
[2020-10-23] MEDS: CHOLECALCIFEROL (VIT D3) 1,000 UNIT (25 MCG) TABLET PO SCH (09:40)
[2020-10-23 10:04] LABS: ALBUMIN 2.6 g/dl (3.4-5.0); BLOOD UREA NITROGEN 15.2 mg/dL (7-18)
[2020-10-23 10:07] LABS: CREATININE 0.7 mg/dL (0.55-1.3)
[2020-10-23 10:08] LABS: BILIRUBIN,TOTAL 0.5 mg/dL (0.2-1); TOT PROT 6.2 g/dl (6.4-8.2)
[2020-10-23] MEDS ORDERED: DEXTROSE 5%-WATER 100 ML IVPB ONE (13:35)
[2020-10-23] MEDS: CEFTRIAXONE 2 GM in DEXTROSE 5%-WATER 2 GM/100 ML BAG IVPB SCH (13:43)
[2020-10-23] MEDS: VANCOMYCIN 1 GRAM (PRE-DOCKED) 1,000 MG/250 ML BAG IVPB SCH (20:32)
[2020-10-24] MEDS: TAMSULOSIN HCL 0.4 MG CAP PO SCH (08:41)
[2020-10-24] MEDS: VANCOMYCIN 1 GRAM (PRE-DOCKED) 1,000 MG/250 ML BAG IVPB SCH ×2 (08:42→20:23)
[2020-10-24] MEDS ORDERED: PT OWN MED DRAWER 7, Y5N ONE (09:48)
[2020-10-24] MEDS ORDERED: DEXTROSE 5%-WATER 100 ML IVPB ONE (09:49)
[2020-10-24] MEDS: CHOLECALCIFEROL (VIT D3) 1,000 UNIT (25 MCG) TABLET PO SCH (09:51)
[2020-10-24] MEDS: CYANOCOBALAMIN 1,000 MCG TABLET (FP) PO SCH (09:52)
[2020-10-24] MEDS: CEFTRIAXONE 2 GM in DEXTROSE 5%-WATER 2 GM/100 ML BAG IVPB SCH (09:52)
[2020-10-24] MEDS: DEXTROSE 5%-0.45% SALINE 1,000 ML IV SCH (09:53)
[2020-10-24] MEDS: HEPARIN NA (PORCINE) 5,000 UNITS/ML 1ML VIAL SQ SCH ×2 (09:53→21:24)
[2020-10-24] MEDS ORDERED: traMADol HCL 50 MG TABLET PO PRN (12:34)
[2020-10-25] MEDS: DEXTROSE 5%-0.45% SALINE 1,000 ML IV SCH ×3 (00:30→16:35)
[2020-10-25] MEDS: TAMSULOSIN HCL 0.4 MG CAP PO SCH (08:40)
[2020-10-25] MEDS: VANCOMYCIN 1 GRAM (PRE-DOCKED) 1,000 MG/250 ML BAG IVPB SCH ×2 (08:40→20:03)
[2020-10-25] MEDS ORDERED: DEXTROSE 5%-WATER 100 ML IVPB ONE (09:02)
[2020-10-25] MEDS: CHOLECALCIFEROL (VIT D3) 1,000 UNIT (25 MCG) TABLET PO SCH (09:12)
[2020-10-25] MEDS: CYANOCOBALAMIN 1,000 MCG TABLET (FP) PO SCH (09:12)
[2020-10-25] MEDS: HEPARIN NA (PORCINE) 5,000 UNITS/ML 1ML VIAL SQ SCH ×2 (09:12→21:26)
[2020-10-25] MEDS: CEFTRIAXONE 2 GM in DEXTROSE 5%-WATER 2 GM/100 ML BAG IVPB SCH (10:43)
[2020-10-26] MEDS: DEXTROSE 5%-0.45% SALINE 1,000 ML IV SCH (07:52)
[2020-10-26] MEDS: VANCOMYCIN 1 GRAM (PRE-DOCKED) 1,000 MG/250 ML BAG IVPB SCH ×2 (08:37→20:54)
[2020-10-26] MEDS: TAMSULOSIN HCL 0.4 MG CAP PO SCH (08:37)
[2020-10-26] MEDS ORDERED: DEXTROSE 5%-WATER 100 ML IVPB ONE (09:26)
[2020-10-26] MEDS: CYANOCOBALAMIN 1,000 MCG TABLET (FP) PO SCH (09:29)
[2020-10-26] MEDS: HEPARIN NA (PORCINE) 5,000 UNITS/ML 1ML VIAL SQ SCH ×2 (09:29→21:01)
[2020-10-26] MEDS: CHOLECALCIFEROL (VIT D3) 1,000 UNIT (25 MCG) TABLET PO SCH (09:29)
[2020-10-26] MEDS: CEFTRIAXONE 2 GM in DEXTROSE 5%-WATER 2 GM/100 ML BAG IVPB SCH (10:46)
[2020-10-27] MEDS: DEXTROSE 5%-0.45% SALINE 1,000 ML IV SCH ×3 (03:02→17:54)
[2020-10-27] MEDS ORDERED: PT OWN MED DRAWER 7, Y5N ONE (06:30)
[2020-10-27] MEDS: TAMSULOSIN HCL 0.4 MG CAP PO SCH (08:36)
[2020-10-27] MEDS: VANCOMYCIN 1 GRAM (PRE-DOCKED) 1,000 MG/250 ML BAG IVPB SCH ×2 (08:36→21:17)
[2020-10-27 09:43] LABS: HEMATOCRIT 36.6 % (35.4-49); HEMOGLOBIN 12.5 GM/dL (11.7-16.9); MCH 33.8 pg (25.7-33.7); MCHC 34.1 g/dl (32.0-35.9); MEAN PLT VOLUME 7.1 fl (7.5-11.1); PLATELET COUNT 371 10^3/uL (134-434); RDW 13.3 % (11.9-15.9); WHITE BLOOD COUNT 7.3 K/mm3 (4.0-10.0)
[2020-10-27] MEDS: CHOLECALCIFEROL (VIT D3) 1,000 UNIT (25 MCG) TABLET PO SCH (09:54)
[2020-10-27] MEDS: HEPARIN NA (PORCINE) 5,000 UNITS/ML 1ML VIAL SQ SCH ×2 (09:54→21:17)
[2020-10-27] MEDS: CYANOCOBALAMIN 1,000 MCG TABLET (FP) PO SCH (09:54)
[2020-10-27 11:07] LABS: ALBUMIN 2.8 g/dl (3.4-5.0); CALCIUM 8.4 mg/dL (8.5-10.1)
[2020-10-27 11:08] LABS: BLOOD UREA NITROGEN 10.6 mg/dL (7-18)
[2020-10-27 11:11] LABS: CREATININE 0.8 mg/dL (0.55-1.3)
[2020-10-27 11:12] LABS: BILIRUBIN,TOTAL 0.3 mg/dL (0.2-1)
[2020-10-27] MEDS ORDERED: DEXTROSE 5%-WATER 100 ML IVPB ONE (11:21)
[2020-10-27] MEDS: CEFTRIAXONE 2 GM in DEXTROSE 5%-WATER 2 GM/100 ML BAG IVPB SCH (11:24)
[2020-10-28] MEDS: TAMSULOSIN HCL 0.4 MG CAP PO SCH (08:03)
[2020-10-28] MEDS: VANCOMYCIN 1 GRAM (PRE-DOCKED) 1,000 MG/250 ML BAG IVPB SCH ×2 (08:03→20:59)
[2020-10-28] MEDS ORDERED: DEXTROSE 5%-WATER 100 ML IVPB ONE (09:53)
[2020-10-28] MEDS: DEXTROSE 5%-0.45% SALINE 1,000 ML IV SCH (09:57)
[2020-10-28] MEDS: HEPARIN NA (PORCINE) 5,000 UNITS/ML 1ML VIAL SQ SCH ×2 (10:03→20:59)
[2020-10-28] MEDS: CEFTRIAXONE 2 GM in DEXTROSE 5%-WATER 2 GM/100 ML BAG IVPB SCH (10:03)
[2020-10-28] MEDS: CYANOCOBALAMIN 1,000 MCG TABLET (FP) PO SCH (10:03)
[2020-10-28] MEDS: CHOLECALCIFEROL (VIT D3) 1,000 UNIT (25 MCG) TABLET PO SCH (10:03)
[2020-10-29] MEDS: DEXTROSE 5%-0.45% SALINE 1,000 ML IV SCH ×2 (03:16→19:36)
[2020-10-29] MEDS: VANCOMYCIN 1 GRAM (PRE-DOCKED) 1,000 MG/250 ML BAG IVPB SCH ×2 (08:13→21:44)
[2020-10-29] MEDS: TAMSULOSIN HCL 0.4 MG CAP PO SCH (08:13)
[2020-10-29] MEDS ORDERED: DEXTROSE 5%-WATER 100 ML IVPB ONE (09:51)
[2020-10-29] MEDS: CEFTRIAXONE 2 GM in DEXTROSE 5%-WATER 2 GM/100 ML BAG IVPB SCH (09:57)
[2020-10-29] MEDS: CYANOCOBALAMIN 1,000 MCG TABLET (FP) PO SCH (09:57)
[2020-10-29] MEDS: CHOLECALCIFEROL (VIT D3) 1,000 UNIT (25 MCG) TABLET PO SCH (09:57)
[2020-10-29] MEDS: HEPARIN NA (PORCINE) 5,000 UNITS/ML 1ML VIAL SQ SCH ×2 (09:57→21:47)
[2020-10-30] MEDS: VANCOMYCIN 1 GRAM (PRE-DOCKED) 1,000 MG/250 ML BAG IVPB SCH ×2 (08:48→19:49)
[2020-10-30] MEDS ORDERED: DEXTROSE 5%-WATER 100 ML IVPB ONE (09:59)
[2020-10-30] MEDS: CEFTRIAXONE 2 GM in DEXTROSE 5%-WATER 2 GM/100 ML BAG IVPB SCH (10:07)
[2020-10-30] MEDS: CHOLECALCIFEROL (VIT D3) 1,000 UNIT (25 MCG) TABLET PO SCH (10:07)
[2020-10-30] MEDS: CYANOCOBALAMIN 1,000 MCG TABLET (FP) PO SCH (10:07)
[2020-10-30] MEDS: DEXTROSE 5%-0.45% SALINE 1,000 ML IV SCH ×2 (11:34→12:33)
[2020-10-30] MEDS ORDERED: PT OWN MED DRAWER 7, Y5N ONE (11:38)
[2020-10-30] MEDS: TAMSULOSIN HCL 0.4 MG CAP PO SCH (11:40)
[2020-10-30] MEDS: MINERAL OIL/PET HY-PHL TOPICAL OINTMENT 454 GM JAR TP SCH (21:10)
[2020-10-31] MEDS: DEXTROSE 5%-0.45% SALINE 1,000 ML IV SCH ×2 (02:16→09:41)
[2020-10-31] MEDS ORDERED: DEXTROSE 5%-WATER 100 ML IVPB ONE (09:37)
[2020-10-31] MEDS ORDERED: PT OWN MED DRAWER 7, Y5N ONE (09:37)
[2020-10-31 09:41] VITALS: BP 124/75; PULSE 60; TEMP 97.9
[2020-10-31] MEDS: CEFTRIAXONE 2 GM in DEXTROSE 5%-WATER 2 GM/100 ML BAG IVPB SCH (09:41)
[2020-10-31] MEDS: CYANOCOBALAMIN 1,000 MCG TABLET (FP) PO SCH (09:42)
[2020-10-31] MEDS: TAMSULOSIN HCL 0.4 MG CAP PO SCH (09:42)
[2020-10-31] MEDS: MINERAL OIL/PET HY-PHL TOPICAL OINTMENT 454 GM JAR TP SCH (09:42)
[2020-10-31] MEDS: VANCOMYCIN 1 GRAM (PRE-DOCKED) 1,000 MG/250 ML BAG IVPB SCH (09:42)
[2020-10-31] MEDS: CHOLECALCIFEROL (VIT D3) 1,000 UNIT (25 MCG) TABLET PO SCH (09:42)
== END 2020-10-31 15:39 | disposition home or self-care (01) | DRG 603 ==
LOC: JER 15:50 → JERBED 21:03 → J8W 23:49 → J7W 10-28 17:23
PROVIDERS: ADMIT Internal Medicine; ATTEND Family Medicine
DX: L03.115 Cellulitis of right lower limb (principal); I73.9 Peripheral vascular disease, unspecified; N40.0 Benign prostatic hyperplasia without lower urinary tract symptoms; E78.5 Hyperlipidemia, unspecified
CPT/HCPCS: 36415; 71046-TC-FY; 80053; 81003; 85025; 85027; 85610; 87040; 87086; 93005; 93010; 93971-TC; 97116-GP; 97162-GP; 99285-25; C9803; G0480; J1644; U0003; U0005

== ENCOUNTER 2020-12-05 16:27 | Inpatient (IN) | payer BC ==
[2020-12-05] MEDS ORDERED: VANCOMYCIN 1 GM in D5W (PRE-DOCKED) 1,000 MG/250 ML IVPB ONE (18:40)
[2020-12-05] MEDS ORDERED: PIPERACILLIN/TAZOB 3.375 GM 3.375 GM in DEXTROSE 5%-WATER - 50 ML IVPB ONE (18:40)
[2020-12-05] MEDS ORDERED: VANCOMYCIN 1 GRAM (PRE-DOCKED) 1,000 MG/250 ML BAG IVPB ONE (18:54)
[2020-12-05] MEDS ORDERED: PIPERACILLIN/TAZOB 3.375 GM 3.375 GM/50 ML BAG IVPB ONE (18:54)
[2020-12-05 19:02] LABS: BASO % 0.4 % (0-2.0); CALCIUM 8.2 mg/dL (8.5-10.1); EOS % 0.1 % (0-4.5); HEMATOCRIT 33.5 % (35.4-49); HEMOGLOBIN 11.4 GM/dL (11.7-16.9); LYMPH % 7.4 % (8-40); MCH 33.2 pg (25.7-33.7); MCHC 34.1 g/dl (32.0-35.9); MEAN CELL VOLUME 97.3 fl (80-96); MEAN PLT VOLUME 7.9 fl (7.5-11.1); NEUT % 89.1 % (42.8-82.8); PLATELET COUNT 252 10^3/uL (134-434); RBC 3.44 M/mm3 (4.00-5.60); RDW 15.2 % (11.9-15.9); WHITE BLOOD COUNT 11.2 K/mm3 (4.0-10.0)
[2020-12-05 19:03] LABS: BLOOD UREA NITROGEN 12.1 mg/dL (7-18)
[2020-12-05 19:20] LABS: INR 1.1 (0.83-1.09); PROTHROMBIN TIME (PATIENT) 13.5 SEC (9.7-13.0)
[2020-12-05 19:22] LABS: ACTIVATED PTT 28.6 SECONDS (25.2-36.5)
[2020-12-05] MEDS ORDERED: traMADol HCL 50 MG TABLET PO PRN (19:54)
[2020-12-05] MEDS ORDERED: ACETAMINOPHEN 325 MG TABLET (FP) PO PRN (19:54)
[2020-12-05 20:26] LABS: PLATELET ESTIMATE NORMAL
[2020-12-06 00:35] VITALS: BMI 25.6
[2020-12-06] MEDS ORDERED: PIPERACILLIN/TAZOBACTAM 3.375 GM VIAL IVPB ONE ×3 (02:24→14:09)
[2020-12-06] MEDS ORDERED: DEXTROSE 5%-WATER - 50 ML IVPB ONE ×3 (02:25→14:09)
[2020-12-06] MEDS: PIPERACILLIN/TAZOB 3.375 GM 3.375 GM in DEXTROSE 5%-WATER - 50 ML IVPB SCH ×5 (03:12→19:14)
[2020-12-06] MEDS ORDERED: VANCOMYCIN/WATER BAGS 1,250 MG/250 ML BAG IVPB SCH (08:00)
[2020-12-06] MEDS: TAMSULOSIN HCL 0.4 MG CAP PO SCH (09:18)
[2020-12-06] MEDS: CHOLECALCIFEROL (VIT D3) 1,000 UNIT (25 MCG) TABLET PO SCH (09:20)
[2020-12-06] MEDS: ENOXAPARIN NA (PORCINE) 40 MG/0.4 ML DISP.SYRIN SQ SCH (09:20)
[2020-12-06] MEDS: ASPIRIN COATED 81 MG TABLET.EC PO SCH (09:20)
[2020-12-06] MEDS: CYANOCOBALAMIN 1,000 MCG TABLET (FP) PO SCH (09:22)
[2020-12-06] MEDS ORDERED: CYANOCOBALAMIN 1,000 MCG TABLET (FP) PO SCH (10:00)
[2020-12-06 11:09] LABS: INR 1.06 (0.83-1.09)
[2020-12-06 11:12] LABS: ACTIVATED PTT 27.9 SECONDS (25.2-36.5); BASO % 0.3 % (0-2.0); EOS % 0.4 % (0-4.5); HEMATOCRIT 31.3 % (35.4-49); HEMOGLOBIN 10.8 GM/dL (11.7-16.9); LYMPH % 6.7 % (8-40); MCH 33.5 pg (25.7-33.7); MCHC 34.4 g/dl (32.0-35.9); MEAN CELL VOLUME 97.5 fl (80-96); MEAN PLT VOLUME 7.4 fl (7.5-11.1); MONO % 4.2 % (3.8-10.2); NEUT % 88.4 % (42.8-82.8); PLATELET COUNT 218 10^3/uL (134-434); RBC 3.21 M/mm3 (4.00-5.60); RDW 14.8 % (11.9-15.9); WHITE BLOOD COUNT 6.7 K/mm3 (4.0-10.0)
[2020-12-06 11:35] LABS: BLOOD UREA NITROGEN 10.7 mg/dL (7-18); CALCIUM 7.9 mg/dL (8.5-10.1); CREATININE 0.9 mg/dL (0.55-1.3)
[2020-12-06] MEDS ORDERED: POTASSIUM CHLORIDE TABS 20 MEQ TABLET.ER (FP) PO ONE (13:59)
[2020-12-06] MEDS ORDERED: VANCOMYCIN 1 GRAM (PRE-DOCKED) 1,000 MG/250 ML BAG IVPB SCH (19:00)
[2020-12-06] MEDS: VANCOMYCIN/WATER BAGS 1,250 MG/250 ML BAG IVPB SCH (19:14)
[2020-12-06] MEDS ORDERED: DEXTROSE 5%-WATER 100 ML IVPB ONE (19:25)
[2020-12-06] MEDS: CEFTRIAXONE 2 GM in DEXTROSE 5%-WATER 2 GM/100 ML BAG IVPB SCH (19:35)
[2020-12-06] MEDS: VANCOMYCIN 1 GRAM (PRE-DOCKED) 1,000 MG/250 ML BAG IVPB SCH (22:09)
[2020-12-07] MEDS ORDERED: PT OWN MED DRAWER 7, Y5N ONE (08:49)
[2020-12-07] MEDS ORDERED: DEXTROSE 5%-WATER 100 ML IVPB ONE (08:51)
[2020-12-07] MEDS: TAMSULOSIN HCL 0.4 MG CAP PO SCH (08:56)
[2020-12-07] MEDS: CEFTRIAXONE 2 GM in DEXTROSE 5%-WATER 2 GM/100 ML BAG IVPB SCH (09:01)
[2020-12-07] MEDS: CHOLECALCIFEROL (VIT D3) 1,000 UNIT (25 MCG) TABLET PO SCH (09:02)
[2020-12-07] MEDS: CYANOCOBALAMIN 1,000 MCG TABLET (FP) PO SCH (09:02)
[2020-12-07] MEDS: ASPIRIN COATED 81 MG TABLET.EC PO SCH (09:02)
[2020-12-07] MEDS: ENOXAPARIN NA (PORCINE) 40 MG/0.4 ML DISP.SYRIN SQ SCH (09:11)
[2020-12-07 10:14] LABS: BLOOD UREA NITROGEN 9.6 mg/dL (7-18); CHLORIDE 106 mmol/L (98-107); CREATININE 0.8 mg/dL (0.55-1.3); GLUCOSE,RANDOM 127 mg/dL (74-106); SODIUM 138 mmol/L (136-145)
[2020-12-07 10:15] LABS: ALBUMIN 3.1 g/dl (3.4-5.0); ALK PHOS 52 U/L (45-117); BILIRUBIN,TOTAL 0.4 mg/dL (0.2-1); CALCIUM 8.4 mg/dL (8.5-10.1); CO2 22 mmol/L (21-32); MAGNESIUM 2.3 mg/dL (1.8-2.4); SGOT/AST 21 U/L (15-37); SGPT/ALT 32 U/L (13-61); TOT PROT 7.3 g/dl (6.4-8.2)
[2020-12-07] MEDS: VANCOMYCIN 1 GRAM (PRE-DOCKED) 1,000 MG/250 ML BAG IVPB SCH ×2 (10:27→21:06)
[2020-12-07 10:38] LABS: BASO % 0.3 % (0-2.0); EOS % 1.3 % (0-4.5); HEMATOCRIT 34.7 % (35.4-49); HEMOGLOBIN 11.8 GM/dL (11.7-16.9); MCH 33.4 pg (25.7-33.7); MCHC 34.1 g/dl (32.0-35.9); MEAN CELL VOLUME 97.8 fl (80-96); MEAN PLT VOLUME 7.8 fl (7.5-11.1); MONO % 6.1 % (3.8-10.2); NEUT % 80.3 % (42.8-82.8); PLATELET COUNT 261 10^3/uL (134-434); RBC 3.55 M/mm3 (4.00-5.60); RDW 15.2 % (11.9-15.9); WHITE BLOOD COUNT 5.6 K/mm3 (4.0-10.0)
[2020-12-07 16:17] LABS: IRON SERUM 34 ug/dL (50-175)
[2020-12-07 16:18] LABS: TOTAL IRON BINDING CAPACITY 284 ug/dL (250-450)
[2020-12-08] MEDS ORDERED: DEXTROSE 5%-WATER 100 ML IVPB ONE (09:31)
[2020-12-08] MEDS: ENOXAPARIN NA (PORCINE) 40 MG/0.4 ML DISP.SYRIN SQ SCH (09:32)
[2020-12-08] MEDS: CHOLECALCIFEROL (VIT D3) 1,000 UNIT (25 MCG) TABLET PO SCH (09:32)
[2020-12-08] MEDS: CEFTRIAXONE 2 GM in DEXTROSE 5%-WATER 2 GM/100 ML BAG IVPB SCH (09:32)
[2020-12-08] MEDS: CYANOCOBALAMIN 1,000 MCG TABLET (FP) PO SCH (09:33)
[2020-12-08] MEDS: ASPIRIN COATED 81 MG TABLET.EC PO SCH (09:33)
[2020-12-08] MEDS: TAMSULOSIN HCL 0.4 MG CAP PO SCH (09:33)
[2020-12-08] MEDS: VANCOMYCIN 1 GRAM (PRE-DOCKED) 1,000 MG/250 ML BAG IVPB SCH ×2 (11:08→22:20)
[2020-12-09] MEDS: TAMSULOSIN HCL 0.4 MG CAP PO SCH (08:36)
[2020-12-09] MEDS ORDERED: DEXTROSE 5%-WATER 100 ML IVPB ONE (09:34)
[2020-12-09] MEDS: CHOLECALCIFEROL (VIT D3) 1,000 UNIT (25 MCG) TABLET PO SCH (09:53)
[2020-12-09] MEDS: CYANOCOBALAMIN 1,000 MCG TABLET (FP) PO SCH (09:53)
[2020-12-09] MEDS: ENOXAPARIN NA (PORCINE) 40 MG/0.4 ML DISP.SYRIN SQ SCH (09:53)
[2020-12-09] MEDS: ASPIRIN COATED 81 MG TABLET.EC PO SCH (09:53)
[2020-12-09] MEDS: CEFTRIAXONE 2 GM in DEXTROSE 5%-WATER 2 GM/100 ML BAG IVPB SCH (09:55)
[2020-12-09 10:31] LABS: EOS % 3.6 % (0-4.5); HEMOGLOBIN 11.9 GM/dL (11.7-16.9); LYMPH % 23.6 % (8-40); MCH 32.9 pg (25.7-33.7); MCHC 33.9 g/dl (32.0-35.9); MEAN PLT VOLUME 7.1 fl (7.5-11.1); MONO % 8.4 % (3.8-10.2); NEUT % 63.4 % (42.8-82.8); PLATELET COUNT 339 10^3/uL (134-434); RBC 3.61 M/mm3 (4.00-5.60); RDW 15.1 % (11.9-15.9)
[2020-12-09 10:52] LABS: BLOOD UREA NITROGEN 11.6 mg/dL (7-18)
[2020-12-09 10:55] LABS: CREATININE 0.9 mg/dL (0.55-1.3)
[2020-12-09] MEDS: VANCOMYCIN 1 GRAM (PRE-DOCKED) 1,000 MG/250 ML BAG IVPB SCH ×2 (11:32→21:14)
[2020-12-10] MEDS: TAMSULOSIN HCL 0.4 MG CAP PO SCH (08:03)
[2020-12-10 08:28] LABS: BASO % 0.9 % (0-2.0); EOS % 2.9 % (0-4.5); HEMATOCRIT 33.4 % (35.4-49); HEMOGLOBIN 11.4 GM/dL (11.7-16.9); LYMPH % 28.3 % (8-40); MCH 33.1 pg (25.7-33.7); MCHC 34.2 g/dl (32.0-35.9); MEAN PLT VOLUME 7.1 fl (7.5-11.1); MONO % 9.9 % (3.8-10.2); PLATELET COUNT 322 10^3/uL (134-434); RBC 3.44 M/mm3 (4.00-5.60); WHITE BLOOD COUNT 4.3 K/mm3 (4.0-10.0)
[2020-12-10 08:52] LABS: CALCIUM 8.7 mg/dL (8.5-10.1)
[2020-12-10 08:53] LABS: BLOOD UREA NITROGEN 12.6 mg/dL (7-18)
[2020-12-10 08:56] LABS: CREATININE 0.9 mg/dL (0.55-1.3)
[2020-12-10] MEDS ORDERED: DEXTROSE 5%-WATER 100 ML IVPB ONE (09:44)
[2020-12-10] MEDS: CHOLECALCIFEROL (VIT D3) 1,000 UNIT (25 MCG) TABLET PO SCH (10:23)
[2020-12-10] MEDS: ASPIRIN COATED 81 MG TABLET.EC PO SCH (10:23)
[2020-12-10] MEDS: ENOXAPARIN NA (PORCINE) 40 MG/0.4 ML DISP.SYRIN SQ SCH (10:23)
[2020-12-10] MEDS: CEFTRIAXONE 2 GM in DEXTROSE 5%-WATER 2 GM/100 ML BAG IVPB SCH (10:24)
[2020-12-10] MEDS: CYANOCOBALAMIN 1,000 MCG TABLET (FP) PO SCH (10:25)
[2020-12-10] MEDS: VANCOMYCIN 1 GRAM (PRE-DOCKED) 1,000 MG/250 ML BAG IVPB SCH ×3 (11:03→21:32)
[2020-12-11] MEDS: TAMSULOSIN HCL 0.4 MG CAP PO SCH (08:27)
[2020-12-11] MEDS ORDERED: DEXTROSE 5%-WATER 100 ML IVPB ONE (09:08)
[2020-12-11] MEDS: CEFTRIAXONE 2 GM in DEXTROSE 5%-WATER 2 GM/100 ML BAG IVPB SCH (09:22)
[2020-12-11] MEDS: CYANOCOBALAMIN 1,000 MCG TABLET (FP) PO SCH (09:23)
[2020-12-11] MEDS: CHOLECALCIFEROL (VIT D3) 1,000 UNIT (25 MCG) TABLET PO SCH (09:23)
[2020-12-11] MEDS: ASPIRIN COATED 81 MG TABLET.EC PO SCH (09:23)
[2020-12-11 09:49] LABS: BASO % 0.8 % (0-2.0); EOS % 2.3 % (0-4.5); HEMOGLOBIN 11.8 GM/dL (11.7-16.9); LYMPH % 25.8 % (8-40); MCH 32.8 pg (25.7-33.7); MCHC 33.6 g/dl (32.0-35.9); MEAN CELL VOLUME 97.4 fl (80-96); NEUT % 66.1 % (42.8-82.8); PLATELET COUNT 372 10^3/uL (134-434); RBC 3.59 M/mm3 (4.00-5.60); RDW 15.1 % (11.9-15.9); WHITE BLOOD COUNT 4.3 K/mm3 (4.0-10.0)
[2020-12-11] MEDS: ENOXAPARIN NA (PORCINE) 40 MG/0.4 ML DISP.SYRIN SQ SCH (09:55)
[2020-12-11 10:12] LABS: BLOOD UREA NITROGEN 14.4 mg/dL (7-18); CALCIUM 8.6 mg/dL (8.5-10.1)
[2020-12-11 10:16] LABS: CREATININE 0.8 mg/dL (0.55-1.3)
[2020-12-11] MEDS: VANCOMYCIN 1 GRAM (PRE-DOCKED) 1,000 MG/250 ML BAG IVPB SCH ×2 (11:03→22:00)
[2020-12-11] MEDS ORDERED: PT OWN MED DRAWER 7, Y5N ONE (21:31)
[2020-12-12] MEDS ORDERED: DEXTROSE 5%-WATER 100 ML IVPB ONE (09:45)
[2020-12-12] MEDS: CYANOCOBALAMIN 1,000 MCG TABLET (FP) PO SCH (10:07)
[2020-12-12] MEDS: ASPIRIN COATED 81 MG TABLET.EC PO SCH (10:07)
[2020-12-12] MEDS: VANCOMYCIN 1 GRAM (PRE-DOCKED) 1,000 MG/250 ML BAG IVPB SCH (10:07)
[2020-12-12] MEDS: TAMSULOSIN HCL 0.4 MG CAP PO SCH (10:07)
[2020-12-12] MEDS: CHOLECALCIFEROL (VIT D3) 1,000 UNIT (25 MCG) TABLET PO SCH (10:07)
[2020-12-12] MEDS: CEFTRIAXONE 2 GM in DEXTROSE 5%-WATER 2 GM/100 ML BAG IVPB SCH (10:08)
[2020-12-12] MEDS: ENOXAPARIN NA (PORCINE) 40 MG/0.4 ML DISP.SYRIN SQ SCH (10:08)
[2020-12-12 15:16] VITALS: BP 124/76; PULSE 61; TEMP 97.9
[2020-12-12] MEDS ORDERED: AMOX TR/POT CLAV 875MG/125MG TABLETS (FP) PO SCH (17:30)
== END 2020-12-12 16:20 | disposition home or self-care (01) | DRG 603 ==
LOC: JER 16:27 → JERBED 18:26 → J5S 23:12
PROVIDERS: ADMIT Internal Medicine; ATTEND Family Medicine
DX: L03.115 Cellulitis of right lower limb (principal); I73.9 Peripheral vascular disease, unspecified; N40.0 Benign prostatic hyperplasia without lower urinary tract symptoms; E78.5 Hyperlipidemia, unspecified; D50.9 Iron deficiency anemia, unspecified; Z85.51 Personal history of malignant neoplasm of bladder
CPT/HCPCS: 36415; 75635-TC; 80048; 80053; 82728; 83540; 83550; 83605; 83735; 85025; 85610; 85730; 87040; 99285-25; C9803; G0480; Q9967; U0003; U0005

== ENCOUNTER 2022-04-23 15:11 | Emergency (ER) | payer BC, OTHER ==
[2022-04-23 15:40] VITALS: RESP 18; BMI 25.1
[2022-04-23] MEDS ORDERED: DALBAVANCIN HCL 1,500 MG in DEXTROSE 5%-WATER - 500 ML IVPB ONE (18:20)
[2022-04-23] MEDS ORDERED: DALBAVANCIN HCL 500 MG VIAL (RESTRICTED TO ID ONLY) IVPB ONE (18:28)
[2022-04-23 19:12] VITALS: BP 145/75; PULSE 69; TEMP 97
[2022-04-23 19:19] LABS: ALBUMIN 3.6 g/dl (3.4-5.0); BLOOD UREA NITROGEN 17.8 mg/dL (7-18)
[2022-04-23 19:23] LABS: BASO % 0.3 % (0-2.0); BILIRUBIN,TOTAL 0.7 mg/dL (0.2-1); HEMATOCRIT 38.7 % (35.4-49); HEMOGLOBIN 13.2 GM/dL (11.7-16.9); LYMPH % 3.8 % (8-40); MCH 33.3 pg (25.7-33.7); MCHC 34.1 g/dl (32.0-35.9); MEAN CELL VOLUME 97.8 fl (80-96); MEAN PLT VOLUME 7.6 fl (7.5-11.1); MONO % 2.3 % (3.8-10.2); NEUT % 93.6 % (42.8-82.8); PLATELET COUNT 249 10^3/uL (134-434); RBC 3.96 M/mm3 (4.00-5.60); RDW 13.2 % (11.9-15.9); WHITE BLOOD COUNT 10.8 K/mm3 (4.0-10.0)
== END 2022-04-23 21:00 | disposition home or self-care (01) ==
LOC: JER 15:11
DX: L03.115 Cellulitis of right lower limb (principal)
CPT/HCPCS: 36415; 80053; 85025; 93971-TC; 99284-25; J0875

== ENCOUNTER 2024-11-28 06:23 | Day surgery (SDC) | payer OTHER, BC ==
[2024-11-26 11:28] VITALS: BMI 25.8
[2024-11-28] MEDS ORDERED: DEXAMETHASONE SOD PHOSPHATE 10 MG/1 ML VIAL ONE (07:11)
[2024-11-28] MEDS ORDERED: DEXMEDETOMIDINE HCL 200 MCG/2 ML IVPB ONE (07:11)
[2024-11-28] MEDS ORDERED: PROPOFOL 140 ML ONE (07:13)
[2024-11-28] MEDS ORDERED: LIDOCAINE HCL/PF 2% SDV 5ML VIAL ONE (07:13)
[2024-11-28] MEDS ORDERED: ONDANSETRON 4 MG/2 ML VIAL ONE (07:13)
[2024-11-28] MEDS ORDERED: MIDAZOLAM HCL 2 MG/2 ML SINGLE DOSE VIAL ONE (07:14)
[2024-11-28] MEDS ORDERED: THROMBIN (BOVINE) 20,000 UNIT VIAL TP ONE (07:15)
[2024-11-28] MEDS ORDERED: VANCOMYCIN 1,000 MG VIAL (RESTRICTED TO ID ONLY) ONE ×2 (07:15→08:17)
[2024-11-28] MEDS ORDERED: BACITRACIN ZINC 15 GM TUBE TOPICAL OINTMENT ONE (07:15)
[2024-11-28] MEDS ORDERED: BUPIVACAINE HCL/PF 0.5% (5MG/ML) 10 ML VIAL ONE (07:15)
[2024-11-28] MEDS ORDERED: ROCURONIUM BROMIDE 50 MG/5 ML SYRINGE ONE (07:37)
[2024-11-28] MEDS ORDERED: SUCCINYLCHOLINE CHLORIDE 200 MG/10 ML SYRINGE ONE (07:37)
[2024-11-28] MEDS: LIDOCAINE 1%/EPI 1:100000 (20 ML MULTI DOSE VIAL) INF ONE (09:14)
[2024-11-28] MEDS ORDERED: PROPOFOL 100 ML ONE (09:40)
[2024-11-28] MEDS ORDERED: ONDANSETRON 4 MG/2 ML VIAL IVPUSH PRN (11:21)
[2024-11-28] MEDS ORDERED: ACETAMINOPHEN INJECTION 100 ML ONE (11:28)
[2024-11-28] MEDS: LACTATED RINGERS SOLUTION 1,000 ML IV SCH (11:29)
[2024-11-28] MEDS: ACETAMINOPHEN 1000 MG/100 ML BAG IVPB ONE (11:29)
[2024-11-28 14:26] VITALS: PULSE 66; RESP 20; TEMP 97.3
[2024-11-28 15:48] VITALS: BP 120/60
== END 2024-11-28 16:52 | disposition home or self-care (01) ==
LOC: JASU-SURG 06:23
PROVIDERS: ATTEND Orthopaedic Surgery Orthopaedic Surgery of the Spine
PROC: 0RB50ZZ Excision of Cervicothoracic Vertebral Disc, Open Approach (ICD-10-PCS; 2024-11-28)
PROC: 0RG4070 Fusion of Cervicothoracic Vertebral Joint with Autologous Tissue Substitute, Anterior Approach, Anterior Column, Open Approach (ICD-10-PCS; 2024-11-28)
PROC: 0RG20A0 Fusion of 2 or more Cervical Vertebral Joints with Interbody Fusion Device, Anterior Approach, Anterior Column, Open Approach (ICD-10-PCS; 2024-11-28)
PROC: 4A11X4G Monitoring of Peripheral Nervous Electrical Activity, Intraoperative, External Approach (ICD-10-PCS; 2024-11-28)
PROC: 0RB30ZZ Excision of Cervical Vertebral Disc, Open Approach (ICD-10-PCS; principal; 2024-11-28 08:00)
DX: M47.812 Spondylosis without myelopathy or radiculopathy, cervical region (principal); M50.10 Cervical disc disorder with radiculopathy, unspecified cervical region; M48.02 Spinal stenosis, cervical region
CPT/HCPCS: 72050-TC-FY; 76000-TC-FY; 94760; 97116-GP; 97162-GP; C1713; J1100